=== PATIENT | male | born 1935 | race Caucasian/White ===

== ENCOUNTER 2020-12-19 18:22 | Inpatient (IN) ==
--- NOTE | 2020-12-19 18:20 | Emergency Department Note ---
Impression & Plan Sepsis, Stroke ED Provider Note NAME: YUE KAY AGE: 85 SEX: M : 1935 ARRIVES VIA: Ambulance INFORMANT: Patient, ED PROVIDER(S): Deshawn Holbrook MD Chief Complaint: Strokelike symptom HPI: Patient does present with concern for strokelike symptoms. The patient had gone to use the restroom around noon time at which point he had fell off the edge of the toilet seat and into the bathtub. He was not found until approximately 5:30 PM by the grandson at which point EMS was called. Upon EMS arrival the patient stated he thinks that he had had a stroke. The patient does take full dose aspirin. The patient was having some left-sided weakness. Patient also had right gaze palsy. BSG was in the 150s. The patient does not take any other blood thinning medications with the exception of the anti platelets. Patient denies fevers or chills but states he does feel cold as he is currently without a shirt in the department. Patient is able to state his name and date of . Patient does have some mild discomfort in left upper extremity. The patient denies any abdominal pain nausea or vomiting. ROS: See HPI for pertinent positives and negatives. A total of 10 systems were reviewed and otherwise negative. Past medical history: See below Surgical history: See below Social history: See below Physical Exam: GENERAL: Wearing a mask, nasal cannula in place. NAD, non-toxic. EYE EXAM: Normal conjunctiva. PERRL, no anisocoria and EOM's grossly intact w/o pain. OROPHARYNX: Dry mucous membranes. Edentulous. NECK: Supple, no nuchal rigidity, no adenopathy, non-tender. No signs of meni ngismus. LUNGS: Clear to auscultation. Normal chest wall mechanics. HEART: Tachycardic and regular, no MRG. ABDOMEN: Abdomen soft, non-tender, normo-active bowel sounds, no masses, no rebound or guarding. BACK: No CVA TTP. SKIN: No rashes and no bruising. UPPER EXTREMITIES: Ability to move left upper extremity, mild redness over the forearm. LOWER EXTREMITIES: Grossly normal, no edema. NEURO EXAM: A&O x3, cranial nerves II-XII grossly intact with exception of preferential right gaze, normal speech, inability to move the left upper extremity, able to move bilateral lower extremities but not able to discriminate between left and right when touching the left he states that it is "your right l eg" and when touching the right leg he states that his left. Differential diagnoses: Infection, dehydration, metabolic abnormality, hypo/hyperglycemia, electrolyte disturbance, anemia, hypoxia, cardiac sources, intracerebral event, toxicologic, neurologic, as well as other pathologies. Course: Patient was seen and evaluated the bedside. Full history physical exam was performed. EKG: Indication: Strokelike symptoms Tachycardic and regular, rate of 129, wide QRS, prolonged QTC, right axis d eviation. Patient's rate is increased but the patient's general morphology appears to be unchanged. The patient did have right axis deviation with a wide QRS seen on EKG July 20, 2016. Imaging Studies: Radiology results as stated below per my review in the radiologist's interpretation: CT OF THE HEAD WITHOUT CONTRAST CLINICAL HISTORY: Stroke Like Symptoms COMPARISON STUDY: No previous studies for comparison. TECHNIQUE: Helical axial images of the head were obtained without IV contrast. Automated exposure control was utilized for the study. A dose lowering technique was utilized adhering to the principles of ALARA. FINDINGS: This exam is mildly compromised by motion artifact. 1No acute intracranial hemorrhage, midline shift or mass effect is present. The ventricular system is unremarkable. White matter hypodensity suggests small vessel disease. The basal cisterns are patent. No extra-axial collections are present. There are no findings to suggest acute dural sinus thrombosis or acute territorial infarct. No significant calvarial abnormalities are present. Visualized portions of the sinuses and mastoid air cells are clear. IMPRESSION: No acute intracranial findings. ACT 112: Negative or not required by law. Electronically signed by: Trung Castro M.D. 12/19/2020 6:37 PM Dictated: 12/19/20 183 Transcribed: 12/19/20 183 CTA ANGIOGRAPHY OF THE HEAD CLINICAL HISTORY: Stroke Like Symptoms COMPARISON STUDY: No previous studies for comparison. TECHNIQUE: Helical axial images of the head were obtained following uneventful intravenous administration of 118 cc of Optiray 320. Sagittal and coronal reconstructions were viewed as well as maximal intensity projections on an independent 3-D workstation. Automated exposure control was utilized for the study. A dose lowering technique was utilized adhering to the principles of ALARA. CT DOSE: 1424.68 mGy.cm FINDINGS: Please note that the head CT will be reported separately. No acute in tracranial hemorrhage, midline shift or mass effect is present. Ventricular system is unremarkable. Basal cisterns are patent. There are no extra-axial collections. White matter hypodensities favor small vessel disease. There is moderate plaque within the bilateral cavernous carotids without significant stenosis. No central vessel occlusion is noted. The posterior circulation is intact. There is no intracranial aneurysm. IMPRESSION: Exam mildly compromised by motion artifact. No central vessel occlusion. No intracranial aneurysm. ACT 112: Negative or not required by law. Electronically signed by: Trung Castro M.D. 12/19/2020 6:45 PM Dictated: 12/19/201841 Transcribed: 12/19/201841 CT ANGIOGRAPHY OF THE NECK WITH CONTRAST CLINICAL HISTORY: Stroke Like Symptoms COMPARISON STUDY: No previous studies for comparison. Technique: CT angiography of the carotid and vertebral arteries was obtained using Optiray 320 IV and 3D reconstruction on an independent workstation. NASCET criteria was utilized. Automated exposure control was utilized for the study. A dose lowering technique was utilized adhering to the principles of ALARA. Findings: Moderate emphysema is noted within visualized portions of the upper lungs. There is no cervical lymphadenopathy. No cervical spine fracture is noted. This exam is moderately compromised by motion artifact. The carotid bifurcations are suboptimally assessed due to artifact. There is moderate calcified plaque within the proximal bilateral internal carotid arteries without definite stenosis. There is no dissection within the major vessels within the neck although sensitivity is diminished on this exam given motion artifact. The right vertebral artery is patent. There is suspected severe stenosis of the proximal right vertebral artery, suboptimally assessed on this exam. IMPRESSION: 1. Exam moderately compromised by motion artifact. Atherosclerotic plaque within the proximal bilateral internal carotid arteries without definite stenosis. 2. Suspected severe stenosis of the proximal left vertebral artery, suboptimally assessed on this exam. ACT 112: Negative or not required by law. Electronically signed by: Trung Castro M.D. 12/19/2020 6:42 PM Dictated: 12/19/201836 Transcribed: 12/19/201836 Cardiac monitoring: An order was placed for continuous cardiac monitoring. The monitor shows a rate of 120 with sinus tachycardia rhythm. MDM: Patient was seen and evaluated the bedside upon returning from CAT scan. I did initiate a phone call to [facility] telestroke. A code stroke had been paged out prior to his arrival in anticipation of his strokelike symptoms. Blood work was obtained along with CT head and CT angiography of the head neck. Given the patient's white count of 20 with an elevated heart rate the patient was ordered Zosyn and vancomycin in addition IV fluids. Covid swab also obtained. CT head CT angiography of the head and neck only showed vertebral artery stenosis. I did speak with Dr. Osman who evaluated the patient. There was concern about the possibility of an M2 branch occlusion per Dr. Osman. I did speak with Dr. Paz at [facility] in [place] he stated given the lack of any obvious area of pathology on the CT angiogram they would not intervene at this time. The patient was informed of this. The patient initial lactate was 5.8. Patient did receive 2 L IV fluid with along with broad- spectrum antibiotics. Covid is negative. Patient's urinalysis does not show evidence of obvious infection. No bacteria whites or nitrites. The patient had no abdominal pain on exam. MRSA negative. Patient's chest x-ray was clear. I did speak with the on-call hospitalist Dr. Natalio Mracum and the patient was admitted to [facility] medicine service. Critical Care: I have personally spent 52 minutes of critical care time in direct management of this patient. This includes bedside care, interpretation of diagnostic studies, and testing, discussion with consultants, patient, and family members, and other require inpatient management activities. This 52 minutes is in excess of all separately billable procedures. Past Med/Surg History Medical History CAD (coronary artery disease) CKD (chronic kidney disease) stage 3, GFR 30-59 ml/min Dyslipidemia HTN (hypertension) Surgical History H/O heart artery stent History of inguinal hernia repair History of tonsillectomy and adenoidectomy Social History Smoking Status: Former smoker Hx Alcohol Use: No Hx Substance Use: No Preferred Language: Swiss Paper Pattern Inspector Required: No Beliefs That Will Affect Care: None Current Living Situation: Alone Other Information That Helps Us Care for You: No Feels Safe at Home: Yes Safety Concerns: Feels Safe At This Time Assistive Devices: Glasses and Hearing Aid - Right Allergies Allergies Allergy/AdvReac Type Severity Reaction Status Date / Time No Known Allergies Allergy Unverified 12/19/20 19:47 Home Meds Home Medications Medication Instructions Recorded Confirmed aspirin 325 mg PO DAILY 12/19/20 12/19/20 buspirone [BuSpar] 10 mg PO BID PRN 12/19/20 12/19/20 cinnamon bark [Cinnamon] 500 mg PO MOWEFR 12/19/20 12/19/20 lisinopril [Zestril] 2.5 mg PO DAILY 12/19/20 12/19/20 metoprolol succinate [Toprol XL] 50 mg PO DAILY 12/19/20 12/19/20 ancnekffeqry-[id number] 1 tab PO DAILY 12/19/20 12/19/20 [Centrum Silver] nitroglycerin [Nitrostat] 0.4 mg SUBLINGUAL UD PRN 12/19/20 12/19/20 simvastatin 20 mg PO HS 12/19/20 12/19/20 vitamin E 0 unit PO BID 12/19/20 12/19/20 Results & Data (ED) Vital Signs Vital Signs - 24 hr 12/19/20 18:18 12/19/20 18:36 12/19/20 18:38 Temperature 37.0 C Temperature Source Oral Pulse Rate 126 H 128 H 128 H Pulse Rate from SpO2 Sensor 129 H 128 H Pulse Strength Normal Respiratory Rate 20 23 25 H Respiratory Effort / Characteristics Non-Labored Spontaneous Respiratory Depth Normal Blood Pressure 147/84 H 147/84 H Blood Pressure Mean 105 105 Pulse Oximetry 97 95 96 Oxygen Delivery Method Room Air Oxygen Flow Rate Sepsis Recent Fever Within 48 Hours No Sepsis New/Unexplained Change in Mental Status N/A Sepsis Action Taken by Nursing No Action Required Oxygen Flow Rate - Titration Pulse Oximetry Post Tiitration 12/19/20 18:43 12/19/20 18:45 12/19/20 18:53 Temperature Temperature Source Pulse Rate 127 H 126 H Pulse Rate from SpO2 Sensor 127 H 126 H Pulse Strength Respiratory Rate 23 17 Respiratory Effort / Characteristics Respiratory Depth Blood Pressure 170/85 H Blood Pressure Mean 113 Pulse Oximetry 96 96 97 Oxygen Delivery Method Room Air Oxygen Flow Rate 2 Sepsis Recent Fever Within 48 Hours Sepsis New/Unexplained Change in Mental Status Sepsis Action Taken by Nursing Oxygen Flow Rate - Titration 0 Pulse Oximetry Post Tiitration 95 12/19/20 19:00 12/19/20 19:01 12/19/20 19:05 Temperature Temperature Source Pulse Rate 130 H 129 H 128 H Pulse Rate from SpO2 Sensor 129 H 129 H 128 H Pulse Strength Respiratory Rate 27 H 24 24 Respiratory Effort / Characteristics Respiratory Depth Blood Pressure 155/85 H 150/88 H Blood Pressure Mean 108 108 Pulse Oximetry 95 94 94 Oxygen Delivery Method Room Air Oxygen Flow Rate Sepsis Recent Fever Within 48 Hours Sepsis New/Unexplained Change in Mental Status Sepsis Action Taken by Nursing Oxygen Flow Rate - Titration Pulse Oximetry Post Tiitration 12/19/20 19:10 12/19/20 19:15 12/19/20 19:17 Temperature Temperature Source Pulse Rate 129 H 128 H 129 H Pulse Rate from SpO2 Sensor 129 H 127 H 129 H Pulse Strength Respiratory Rate 21 21 23 Respiratory Effort / Characteristics Respiratory Depth Blood Pressure 158/86 H 137/91 142/90 H Blood Pressure Mean 110 106 107 Pulse Oximetry 94 94 93 Oxygen Delivery Method Room Air Room Air Room Air Oxygen Flow Rate Sepsis Recent Fever Within 48 Hours Sepsis New/Unexplained Change in Mental Status Sepsis Action Taken by Nursing Oxygen Flow Rate - Titration Pulse Oximetry Post Tiitration 12/19/20 19:20 12/19/20 19:25 12/19/20 20:05 Temperature Temperature Source Pulse Rate 128 H 130 H 129 H Pulse Rate from SpO2 Sensor 128 H 130 H Pulse Strength Respiratory Rate 18 23 23 Respiratory Effort / Characteristics Respiratory Depth Blood Pressure 169/135 H 150/90 H 142/97 H Blood Pressure Mean 146 110 112 Pulse Oximetry 94 96 98 Oxygen Delivery Method Room Air Room Air Room Air Oxygen Flow Rate Sepsis Recent Fever Within 48 Hours Sepsis New/Unexplained Change in Mental Status Sepsis Action Taken by Nursing Oxygen Flow Rate - Titration Pulse Oximetry Post Tiitration 12/19/20 20:10 12/19/20 20:15 12/19/20 20:21 Temperature Temperature Source Pulse Rate 128 H 126 H 124 H Pulse Rate from SpO2 Sensor Pulse Strength Respiratory Rate 22 19 22 Respiratory Effort / Characteristics Respiratory Depth Blood Pressure 149/81 H 131/62 160/89 H Blood Pressure Mean 103 85 112 Pulse Oximetry 98 98 98 Oxygen Delivery Method Room Air Room Air Room Air Oxygen Flow Rate Sepsis Recent Fever Within 48 Hours Sepsis New/Unexplained Change in Mental Status Sepsis Action Taken by Nursing Oxygen Flow Rate - Titration Pulse Oximetry Post Tiitration Home Medications Current Medication List: was personally reviewed by me Laboratory Data Attestation: I reviewed the patient's lab results. Result diagrams: 12/19/20 18:32 12/19/20 18:32 Lab Results 12/19/20 12/19/20 12/19/20 Range/Units 18:32 18:32 18:32 WBC 20.66 H (4.8-10.8) K/uL RBC 4.04 L (4.7-6.1) M/uL Hgb 13.1 L (14.0-18.0) g/dL Hct 37.3 L (42-52) % MCV 92.3 (80-100) fL MCH 32.4 (25-34) pg MCHC 35.1 (32-36) g/dL RDW Std Deviation 46.7 H (36.4-46.3) fL RDW Coeff of Ana 13.8 (11.5-14.5) % Plt Count 249 (130-400) K/uL MPV 10.2 (7.4-10.4) fL Immature Gran % (Auto) 0.1 % Neut % (Auto) 86.1 % Lymph % (Auto) 10.8 % [place] % (Auto) 3.0 % Eos % (Auto) 0.0 % Baso % (Auto) 0.0 % Neut # (Auto) 17.78 H (1.4-6.5) K/uL Lymph # (Auto) 2.23 (1.2-3.4) K/uL [place] # (Auto) 0.62 H (0.11-0.59) K/uL Eos # (Auto) 0.00 (0-0.5) K/uL Baso # (Auto) 0.01 (0-0.2) K/uL Immature Gran # (Auto) 0.02 (0.00-0.02) K/uL PT 11.5 (9.0-12.0) Seconds INR 1.1 (0.9-1.1) APTT 23.2 (21.0-31.0) Seconds PTT Ratio 0.9 Sodium 138 (136-145) mmol/L Potassium 4.9 (3.5-5.1) mmol/L Chloride 107 (98-107) mmol/L Carbon Dioxide 18 L (21-32) mmol/L Anion Gap 14.0 H (3-11) BUN 29 H (7-18) mg/dl Creatinine 1.93 H (0.6-1.4) mg/dl Est Cr Clr Drug Dosing Not Reportable Est GFR ( Amer) 35.5 Est GFR (Non-Af Amer) 30.6 BUN/Creatinine Ratio 14.9 (10-20) Glucose 165 H (70-99) mg/dl POC Glucose (70-99) mg/dl Lactate (0.4-2.0) mmol/L Calcium 9.4 (8.5-10.1) mg/dl Magnesium 2.0 (1.8-2.4) mg/dl Total Bilirubin 0.4 (0.2-1) mg/dl AST 161 H (15-37) U/L ALT 48 (12-78) U/L Alkaline Phosphatase 82 (45-117) U/L Troponin I 0.253 H* (0-0.045) ng/ml Total Protein 6.6 (6.4-8.2) gm/dl Albumin 3.5 (3.4-5.0) gm/dl Globulin 3.1 (2.5-4.0) gm/dl Albumin/Globulin Ratio 1.1 (0.9-2) Urine Color Urine Appearance (Clear) Urine pH (4.5-7.5) Ur Specific [place] (1.000-1.030) Urine Protein (Negative) Urine Glucose (UA) (Negative) Urine Ketones (Negative) Urine Blood (Negative) Urine Nitrite (Negative) Urine Bilirubin (Negative) Urine Urobilinogen (Negative) Ur Leukocyte Esterase (Negative) Urine WBC (Auto) (0-5) /hpf Urine RBC (Auto) (0-4) /hpf U Hyaline Cast (Auto) (0-5) /lpf U Epithel Cells (Auto) (0-5) /lpf Urine Bacteria (Auto) (Negative) Amorphous Sediment (None Prsent) Urine Mucus (None Prsent) Nasal Screen MRSA (PCR) (Negative) COVID-19 Eval Order SARS-CoV-2, RNA, NAAT (NEGATIVE) 12/19/20 12/19/20 12/19/20 Range/Units 18:34 19:46 20:25 WBC (4.8-10.8) K/uL RBC (4.7-6.1) M/uL Hgb (14.0-18.0) g/dL Hct (42-52) % MCV (80-100) fL MCH (25-34) pg MCHC (32-36) g/dL RDW Std Deviation (36.4-46.3) fL RDW Coeff of Ana (11.5-14.5) % Plt Count (130-400) K/uL MPV (7.4-10.4) fL Immature Gran % (Auto) % Neut % (Auto) % Lymph % (Auto) % [place] % (Auto) % Eos % (Auto) % Baso % (Auto) % Neut # (Auto) (1.4-6.5) K/uL Lymph # (Auto) (1.2-3.4) K/uL [place] # (Auto) (0.11-0.59) K/uL Eos # (Auto) (0-0.5) K/uL Baso # (Auto) (0-0.2) K/uL Immature Gran # (Auto) (0.00-0.02) K/uL PT (9.0-12.0) Seconds INR (0.9-1.1) APTT (21.0-31.0) Seconds PTT Ratio Sodium (136-145) mmol/L Potassium (3.5-5.1) mmol/L Chloride (98-107) mmol/L Carbon Dioxide (21-32) mmol/L Anion Gap (3-11) BUN (7-18) mg/dl Creatinine (0.6-1.4) mg/dl Est Cr Clr Drug Dosing Est GFR ( Amer) Est GFR (Non-Af Amer) BUN/Creatinine Ratio (10-20) Glucose (70-99) mg/dl POC Glucose 167 H (70-99) mg/dl Lactate 5.8 H* (0.4-2.0) mmol/L Calcium (8.5-10.1) mg/dl Magnesium (1.8-2.4) mg/dl Total Bilirubin (0.2-1) mg/dl AST (15-37) U/L ALT (12-78) U/L Alkaline Phosphatase (45-117) U/L Troponin I (0-0.045) ng/ml Total Protein (6.4-8.2) gm/dl Albumin (3.4-5.0) gm/dl Globulin (2.5-4.0) gm/dl Albumin/Globulin Ratio (0.9-2) Urine Color Urine Appearance (Clear) Urine pH (4.5-7.5) Ur Specific [place] (1.000-1.030) Urine Protein (Negative) Urine Glucose (UA) (Negative) Urine Ketones (Negative) Urine Blood (Negative) Urine Nitrite (Negative) Urine Bilirubin (Negative) Urine Urobilinogen (Negative) Ur Leukocyte Esterase (Negative) Urine WBC (Auto) (0-5) /hpf Urine RBC (Auto) (0-4) /hpf U Hyaline Cast (Auto) (0-5) /lpf U Epithel Cells (Auto) (0-5) /lpf Urine Bacteria (Auto) (Negative) Amorphous Sediment (None Prsent) Urine Mucus (None Prsent) Nasal Screen MRSA (PCR) Negative (Negative) COVID-19 Eval Order SARS-CoV-2, RNA, NAAT (NEGATIVE) 12/19/20 12/19/20 12/19/20 Range/Units 20:25 20:25 20:25 WBC (4.8-10.8) K/uL RBC (4.7-6.1) M/uL Hgb (14.0-18.0) g/dL Hct (42-52) % MCV (80-100) fL MCH (25-34) pg MCHC (32-36) g/dL RDW Std Deviation (36.4-46.3) fL RDW Coeff of Ana (11.5-14.5) % Plt Count (130-400) K/uL MPV (7.4-10.4) fL Immature Gran % (Auto) % Neut % (Auto) % Lymph % (Auto) % [place] % (Auto) % Eos % (Auto) % Baso % (Auto) % Neut # (Auto) (1.4-6.5) K/uL Lymph # (Auto) (1.2-3.4) K/uL [place] # (Auto) (0.11-0.59) K/uL Eos # (Auto) (0-0.5) K/uL Baso # (Auto) (0-0.2) K/uL Immature Gran # (Auto) (0.00-0.02) K/uL PT (9.0-12.0) Seconds INR (0.9-1.1) APTT (21.0-31.0) Seconds PTT Ratio Sodium (136-145) mmol/L Potassium (3.5-5.1) mmol/L Chloride (98-107) mmol/L Carbon Dioxide (21-32) mmol/L Anion Gap (3-11) BUN (7-18) mg/dl Creatinine (0.6-1.4) mg/dl Est Cr Clr Drug Dosing Est GFR ( Amer) Est GFR (Non-Af Amer) BUN/Creatinine Ratio (10-20) Glucose (70-99) mg/dl POC Glucose (70-99) mg/dl Lactate (0.4-2.0) mmol/L Calcium (8.5-10.1) mg/dl Magnesium (1.8-2.4) mg/dl Total Bilirubin (0.2-1) mg/dl AST (15-37) U/L ALT (12-78) U/L Alkaline Phosphatase (45-117) U/L Troponin I (0-0.045) ng/ml Total Protein (6.4-8.2) gm/dl Albumin (3.4-5.0) gm/dl Globulin (2.5-4.0) gm/dl Albumin/Globulin Ratio (0.9-2) Urine Color Yellow Urine Appearance Clear (Clear) Urine pH 5.0 (4.5-7.5) Ur Specific [place] > 1.045 H (1.000-1.030) Urine Protein 2+ H (Negative) Urine Glucose (UA) Negative (Negative) Urine Ketones Trace H (Negative) Urine Blood 3+ H (Negative) Urine Nitrite Negative (Negative) Urine Bilirubin Negative (Negative) Urine Urobilinogen Negative (Negative) Ur Leukocyte Esterase Trace H (Negative) Urine WBC (Auto) 1-5 (0-5) /hpf Urine RBC (Auto) 10-30 H (0-4) /hpf U Hyaline Cast (Auto) 10-30 H (0-5) /lpf U Epithel Cells (Auto) 10-20 H (0-5) /lpf Urine Bacteria (Auto) Negative (Negative) Amorphous Sediment Present A (None Prsent) Urine Mucus Present A (None Prsent) Nasal Screen MRSA (PCR) (Negative) COVID-19 Eval Order Covid19 IDNow atMDEC SARS-CoV-2, RNA, NAAT NEGATIVE (NEGATIVE) Administered Medications Discontinued Medications Acetaminophen (Acetaminophen 1000 Mg/100 Ml Iv) Confirm Administered Dose 1,000 mg IV .STK-MED ONE Stop: 12/19/20 20:14 Last Admin: 12/19/20 20:22 Dose: 1,000 mg Documented by: [id number] Piperacillin Sod/Tazobactam Sod (Zosyn) 4.5 gm in 120 mls @ 240 mls/hr IV NOW ONE Stop: 12/19/20 19:48 Last Infusion: 12/19/20 20:36 Dose: 0 mls/hr Documented by: [id number] Admin: 12/19/20 20:09 Dose: 240 mls/hr Documented by: [id number] Sodium Chloride (Nss 1000ml) 1,000 mls @ 999 mls/hr IV .Q1H1M ONE Stop: 12/19/20 20:19 Last Admin: 12/19/20 20:09 Dose: 999 mls/hr Documented by: [id number] Vancomycin HCl 2,250 mg/ (Sodium Chloride) 545 mls @ 200 mls/hr IV NOW ONE Stop: 12/19/20 22:07 Last Admin: 12/19/20 20:09 Dose: 200 mls/hr Documented by: [id number] Magnesium Sulfate/Dextrose (Magnesium Sulfate / D5w) 1 gm in 100 mls @ 100 mls/hr IV NOW STA Stop: 12/19/20 20:25 Last Admin: 12/19/20 20:22 Dose: 100 mls/hr Documented by: [id number] Sodium Chloride (Nss 1000ml) 1,000 mls @ 999 mls/hr IV .Q1H1M ONE Stop: 12/19/20 20:43 Last Admin: 12/19/20 20:36 Dose: 999 mls/hr Documented by: [id number] Acetaminophen (Ofirmev) 1,000 mg in 100 mls @ 400 mls/hr IV NOW STA Stop: 12/19/20 22:10 Last Admin: 12/19/20 22:29 Dose: Not Given Documented by: [id number] Ioversol (Optiray 320 125ml) 118 ml IV ONCE ONE Stop: 12/19/20 18:22 Last Admin: 12/19/20 18:22 Dose: 118 ml Documented by: [id number] Discharge Plan Visit Data Chief Complaint: Stroke Alert Stated Complaint: STROKE ALERT ED Provider: Deshawn Holbrook Discharge Problem: Sepsis, Stroke Discharge Problem: Sepsis Qualifiers: Sepsis type: sepsis due to unspecified organism Sepsis acute organ dysfunction status: with acute organ dysfunction Severe sepsis acute organ dysfunction type: unspecified Severe sepsis shock status: without septic shock Qualified Code(s): A41.9 - Sepsis, unspecified organism Stroke Qualifiers: CVA mechanism: unspecified Qualified Code(s): I63.9 - Cerebral infarction, unspecified
[~2020-12-19 18:22] MED LIST: OPTIRAY 320 125ml IV ONE
--- NOTE | 2020-12-19 18:38 | CT Scan Report ---
CT OF THE HEAD WITHOUT CONTRAST CLINICAL HISTORY: Stroke Like Symptoms COMPARISON STUDY: No previous studies for comparison. TECHNIQUE: Helical axial images of the head were obtained without IV contrast. Automated exposure con trol was utilized for the study. A dose lowering technique was utilized adhering to the principles o f ALARA. FINDINGS: This exam is mildly compromised by motion artifact. 1No acute intracranial hemorrhage, midl ine shift or mass effect is present. The ventricular system is unremarkable. White matter hypodensity suggests small vessel disease. The basal cisterns are patent. No extra-axial collections are present . There are no findings to suggest acute dural sinus thrombosis or acute territorial infarct. No sign ificant calvarial abnormalities are present. Visualized portions of the sinuses and mastoid air cells are clear. IMPRESSION: No acute intracranial findings. ACT 112: Negative or not required by law. Electronically signed by: Trung Castro M.D. 12/19/2020 6:37 PM
--- NOTE | 2020-12-19 18:44 | CT Scan Report ---
CT ANGIOGRAPHY OF THE NECK WITH CONTRAST CLINICAL HISTORY: Stroke Like Symptoms COMPARISON STUDY: No previous studies for comparison. Technique: CT angiography of the carotid and vertebral arteries was obtained using Exoprise 320 IV and 3D reconstruction on an independent workstation. NASCET criteria was utilized. Automated exposure c ontrol was utilized for the study. A dose lowering technique was utilized adhering to the principles of ALARA. Findings: Moderate emphysema is noted within visualized portions of the upper lungs. There is no cerv ical lymphadenopathy. No cervical spine fracture is noted. This exam is moderately compromised by mot ion artifact. The carotid bifurcations are suboptimally assessed due to artifact. There is moderate c alcified plaque within the proximal bilateral internal carotid arteries without definite stenosis. Th ere is no dissection within the major vessels within the neck although sensitivity is diminished on t his exam given motion artifact. The right vertebral artery is patent. There is suspected severe steno sis of the proximal right vertebral artery, suboptimally assessed on this exam. IMPRESSION: 1. Exam moderately compromised by motion artifact. Atherosclerotic plaque within the proximal bilater al internal carotid arteries without definite stenosis. 2. Suspected severe stenosis of the proximal left vertebral artery, suboptimally assessed on this exa m. ACT 112: Negative or not required by law. Electronically signed by: Trung Castro M.D. 12/19/2020 6:42 PM
[2020-12-19 18:45] LABS: Hematocrit (blood only) 37.3 % (42-52); Hemoglobin 13.1 g/dL (14.0-18.0); Mean Corpuscular Hemoglobin 32.4 pg (25-34); Mean Corpuscular Hgb Conc 35.1 g/dL (32-36); Mean Corpuscular Volume 92.3 fL (80-100); Mean Platelet Volume 10.2 fL (7.4-10.4); Platelet Count 249 K/uL (130-400); RDW Coefficient of Variation 13.8 % (11.5-14.5); RDW Standard Deviation 46.7 fL (36.4-46.3); Red Blood Count 4.04 M/uL (4.7-6.1); White Blood Count 20.66 K/uL (4.8-10.8)
--- NOTE | 2020-12-19 18:47 | CT Scan Report ---
CTA ANGIOGRAPHY OF THE HEAD CLINICAL HISTORY: Stroke Like Symptoms COMPARISON STUDY: No previous studies for comparison. TECHNIQUE: Helical axial images of the head were obtained following uneventful intravenous administr ation of 118 cc of Optiray 320. Sagittal and coronal reconstructions were viewed as well as maximal i ntensity projections on an independent 3-D workstation. Automated exposure control was utilized for the study. A dose lowering technique was utilized adhering to the principles of ALARA. CT DOSE: 1424.68 mGy.cm FINDINGS: Please note that the head CT will be reported separately. No acute intracranial hemorrhage, midline shift or mass effect is present. Ventricular system is unremarkable. Basal cisterns are woodall nt. There are no extra-axial collections. White matter hypodensities favor small vessel disease. Ther e is moderate plaque within the bilateral cavernous carotids without significant stenosis. No central vessel occlusion is noted. The posterior circulation is intact. There is no intracranial aneurysm. IMPRESSION: Exam mildly compromised by motion artifact. No central vessel occlusion. No intracranial aneurysm. ACT 112: Negative or not required by law. Electronically signed by: Trung Castro M.D. 12/19/2020 6:45 PM
[2020-12-19 18:55] LABS: INR 1.1 (0.9-1.1); Partial Thromboplastin Ratio 0.9; Partial Thromboplastin Time 23.2 Seconds (21.0-31.0); Prothrombin Time 11.5 Seconds (9.0-12.0)
[2020-12-19 19:02] LABS: Alanine Aminotransferase 48 U/L (12-78); Albumin Level 3.5 gm/dl (3.4-5.0); Aspartate Aminotransferase 161 U/L (15-37); BUN Creatinine Ratio 14.9 (10-20); Blood Urea Nitrogen 29 mg/dl (7-18); Calcium 9.4 mg/dl (8.5-10.1); Carbon Dioxide 18 mmol/L (21-32); Chloride 107 mmol/L (98-107); Est GFR (African American) 35.5; Est GFR (Non-African American) 30.6; Glucose 165 mg/dl (70-99); Potassium 4.9 mmol/L (3.5-5.1); Sodium 138 mmol/L (136-145)
[2020-12-19 19:08] LABS: Basophils # (auto) 0.01 K/uL (0-0.2); Immature Granulocytes # (auto) 0.02 K/uL (0.00-0.02); Immature Granulocytes % (auto) 0.1 %; Lymphocytes # (auto) 2.23 K/uL (1.2-3.4); Lymphocytes % (auto) 10.8 %; Monocytes # (auto) 0.62 K/uL (0.11-0.59); Neutrophils # (auto) 17.78 K/uL (1.4-6.5); Neutrophils % (auto) 86.1 %
[2020-12-19 19:10] LABS: Albumin Globulin Ratio 1.1 (0.9-2); Alkaline Phosphatase 82 U/L (45-117); Bilirubin,Total 0.4 mg/dl (0.2-1); Globulin 3.1 gm/dl (2.5-4.0); Total Protein 6.6 gm/dl (6.4-8.2); Troponin I 0.253 ng/ml (0-0.045)
[2020-12-19] MEDS ORDERED: SODIUM CHLORIDE 0.9% 1000ML 1,000 ML IV ONE ×2 (19:19→19:43)
[2020-12-19] MEDS ORDERED: PIPERACILL/TAZOBAC CONSULT ACTIVE PRN (19:19)
[2020-12-19] MEDS ORDERED: PIPERACILLIN/TAZOBACTAM 4.5 GM/120 ML BAG IV ONE (19:19)
[2020-12-19] MEDS ORDERED: VANCOMYCIN CONSULT ACTIVE PRN (19:24)
[2020-12-19] MEDS ORDERED: VANCOMYCIN HCL 2,250 MG in SODIUM CHLORIDE 0.9% 500 ML IV ONE (19:24)
[2020-12-19] MEDS ORDERED: MAGNESIUM SULFATE / D5W 1 GM/100 ML BAG IV STA (19:26)
--- NOTE | 2020-12-19 19:53 | XRay Report ---
XR chest 1V portable CLINICAL HISTORY: CVA work up COMPARISON STUDY: Chest radiograph July 17, 2016. FINDINGS: Lung volumes are normal. Lungs are clear. There is no pneumothorax or pleural effusion. Car diac size is stable. Mediastinal contours are normal. There is no evidence for pulmonary edema. IMPRESSION: No acute cardiopulmonary findings. ACT 112: Negative or not required by law. Electronically signed by: Trung Castro M.D. 12/19/2020 7:52 PM
[2020-12-19] MEDS ORDERED: ACETAMINOPHEN 1000 MG/100 ML IV IV ONE (20:13)
[2020-12-19 20:46] LABS: Appearance Urine Clear (Clear); Bacteria Urine Automated Negative (Negative); Bilirubin Urine Negative (Negative); Blood Urine 3+ (Negative); Color Urine Yellow; Glucose Urine UA Negative (Negative); Ketones Urine Trace (Negative); Leukocyte Esterase Urine Trace (Negative); Nitrite Urine Negative (Negative); Protein Urine 2+ (Negative); Specific Gravity Urine > 1.045 (1.000-1.030); Urobilinogen Urine Negative (Negative)
[2020-12-19 21:01] LABS: Amorphous Sediment Urine Present (None Prsent)
[2020-12-19 21:02] LABS: Mucus Urine Present (None Prsent)
[2020-12-19] MEDS ORDERED: ACETAMINOPHEN 1,000 MG/100 ML VIAL IV STA (21:56)
[2020-12-19] MEDS ORDERED: NITROGLYCERIN SL 0.4 MG/TAB TAB SL PRN (23:06)
[2020-12-19] MEDS ORDERED: busPIRone 5 MG TAB PO PRN (23:06)
[2020-12-19] MEDS ORDERED: ONDANSETRON INJ 2 MG/ML 2 ML VIAL IV PRN (23:06)
[2020-12-19] MEDS ORDERED: METOPROLOL TARTRATE 1 MG/ML VIAL IV PRN (23:06)
[2020-12-19] MEDS ORDERED: PHARMACIST DISCHARGE MED REC CONSULT PRN (23:06)
[2020-12-20] MEDS: SODIUM CHLORIDE 0.9% 1000ML 1,000 ML IV SCH ×2 (00:21→08:14)
[2020-12-20] MEDS: PATIENT'S HEIGHT AND/OR WEIGHT NEEDED SCH ×2 (00:21→00:41)
[2020-12-20] MEDS: DOXYCYCLINE HYCLATE 100 MG CAP PO SCH ×3 (00:41→20:01)
[2020-12-20] MEDS: ACETAMINOPHEN 325 MG TAB PO PRN ×2 (00:45→16:04)
--- NOTE | 2020-12-20 00:51 | History and Physical Report ---
DATE OF ADMISSION: 12/19/2020 CHIEF COMPLAINT: Stroke-like episode. HISTORY OF PRESENT ILLNESS: This is an 85-year-old male with past medical history significant for hyperlipidemia, gout, prediabetes, history of CT, history of vasomotor rhinitis, history of second-degree AV block, CAD, macular degeneration of the left eye, asymptomatic bilateral carotid artery disease, vitamin D deficiency, GERD, stage III chronic kidney disease, generalized osteoarthritis, hearing loss, elevated LFTs. Lives alone. The patient says he takes care of himself. He cooks food and cleans his house and drives car and the son and daughter help him. Today, he had gone to the restroom around noontime at which time he fell off the edge of the toilet seat into the bathtub as per the ER and he was found approximately around 5:30 p.m. by the grandson, at which point EMS was called and the patient could not move his left upper extremity. He was thought to have a stroke and was given a full dose of aspirin. The patient has some right gaze preference and some disorientation of the right and left. Currently patient is alert and oriented, hard of hearing, but able to give his history. He complains of some headache about 3/10 in severity and also bilateral lower ribcage pain. He says his vision is okay. Denies any sore throat. Denies any cough. No shortness of breath. No dysphagia. No facial droop. No chest pain, no shortness of breath, no nausea, no vomiting, no abdominal pain. Denies any diarrhea, or constipation. He says his bladder movements are okay. No rash. He says he ambulates okay without any support. He says he is active. ALLERGIES: No known drug allergies. PAST MEDICAL HISTORY: As mentioned above. PAST SURGICAL HISTORY: Colonoscopy with biopsies, coronary artery dilatation and balloon of the right coronary artery in 2002, pyloromyotomy, unilateral removal of hydrocele in 1970, cataract surgery, tonsillectomy and adenoidectomy in 1949s, repair of inguinal hernia. MEDICATIONS: The patient is on aspirin 325 mg p.o. daily, buspirone 10 mg p.o. b.i.d. p.r.n., cinnamon 500 mg p.o. on Wednesday, Wednesday and Wednesday, lisinopril 2.5 mg p.o. daily, Toprol-XL 50 mg p.o. daily, multivitamin with minerals 1 tablet p.o. daily, nitroglycerin 0.4 mg sublingual p.r.n., simvastatin 20 mg p.o. at bedtime. FAMILY HISTORY: Significant for daughter has ovarian cancer. SOCIAL HISTORY: . Former smoker, quit in 2002. Smoked 1 pack a day for 50 years. Alcohol, 3 beers per month. No drug use. REVIEW OF SYSTEMS: As per HPI. Rest of the review of symptoms negative. PHYSICAL EXAMINATION: GENERAL: The patient is old and frail, not in acute distress. VITAL SIGNS: Temperature 37, pulse 120s, respiratory rate 22, blood pressure 160/89, oxygen 98% on room air. HEENT: Some right-sided preferential gaze. Pupils equal, round, and reactive to light. Extraocular muscles intact. No facial droop. Speech is clear. Oral mucosa dry. NECK: No neck masses. No JVD. CARDIOVASCULAR: S1, S2 heard. Tachycardia. No murmurs, no gallop. RESPIRATORY SYSTEM: Normal AP diameter. No accessory muscle use. No wheezing, no crackles. ABDOMEN: Soft, bowel sounds present, nontender. No distention. CENTRAL NERVOUS SYSTEM: Alert and oriented x3. Speech is clear. No facial droop. Weakness in his left upper extremity. Some disorientation of the right and left side, but obeys simple commands. Moves all extremities except left upper extremity. EXTREMITIES: No edema. No erythema seen. Some bruises seen in the knees. LABORATORY DATA: WBC 20, hemoglobin 13.1, hematocrit 37.3, platelets 249. PT 11.5, INR 1.1, APTT 23.3. Sodium 138, potassium 4.9, chloride 107, bicarbonate 18, BUN 29, creatinine 1.93, serum glucose 165. Lactate 5.8, calcium 9.4, magnesium 2, total bilirubin 0.4, AST 161, ALT 48, alkaline phosphatase 82. Troponin I of 0.25. Urinalysis, positive for +3 blood and trace leukocyte esterase. MRSA screen negative. SARS-CoV-2 RNA negative. IMAGING DATA: Chest x-ray, no acute findings. CT of the head, no acute intracranial findings. CTA of the head and neck shows no central vessel occlusion, no intracranial aneurysms. CTA of the neck, suspected stenosis of the proximal left vertebral artery, atherosclerotic plaque within the proximal bilateral internal carotid arteries without definite stenosis. EKG: Poor data interpretation, ventricular tachycardia, right bundle branch block. ASSESSMENT AND PLAN: This is an 85-year-old male who presents with acute cerebrovascular accident. 1. Acute cerebrovascular accident: Could not move his left upper extremity, fell in the bathtub around noon time. CT of the head and CTA of the head and neck are unremarkable except for vertebral artery stenosis. ER called stroke alert and talked to [place] neurologist and also talked to [place] neurologist and no intervention was recommended at this time and was recommended for magnesium and fluids, which were given. The patient is already on aspirin at home. We will do full stroke workup with MRI scan, echocardiogram, neuro consult. Also add Plavix for now and continue home statin for now. Speech evaluation and PT/OT. We will keep him n.p.o. except meds for now until evaluated by speech. Closely monitor in tele floor. 2. Possible sepsis with elevated white count, elevated lactic acid, possible urinary tract infection. The patient also has some dry cough. Empirically started on vancomycin and Zosyn and also started on doxycycline and follow the culture. We will continue IV fluids about 125 mL per hour and follow the repeat lactic acid and follow the cultures. 3. Acute kidney injury on chronic kidney disease stage III, baseline creatinine around 1.2 to 1.3, presently with creatinine of 1.9. Getting fluids. Avoid nephrotoxic agents. We will follow the repeat labs in the a.m. 4. Mild elevation of troponin: Could be demand ischemia. We will follow repeat labs. Follow the echocardiogram. 5. History of coronary artery disease: Continue his aspirin and statin. We will be placing on IV Lopressor p.r.n. We will monitor. 6. History of hypertension: Will be holding home lisinopril and Toprol-XL for permissive hypertension. We will place him on IV Lopressor p.r.n. for systolic blood pressure greater than 190. Restart Toprol-XL as soon as possible. 7. Hyperlipidemia: Continue statin. Follow lipid profile. 8. History of prediabetes: Follow his HbA1c levels, currently n.p.o. 9. Hard of hearing. 10. History of elevated LFTs, follow the LFTs in the a.m. 11. Deep venous thrombosis prophylaxis, sequential compression devices for now. 12. Disposition, closely monitor in the tele floor. Level 1 full code. PT and OT prior to discharge. Social service to help with discharge planning. Tried to call his daughter, but unable to reach her. Talked to Son Mr. Simon ph no [phone]. Likes to be called with MRI results. PADMINI
[2020-12-20 01:32] LABS: Basophils # (auto) 0.02 K/uL (0-0.2); Basophils % (auto) 0.1 %; Hematocrit (blood only) 36.4 % (42-52); Hemoglobin 12.7 g/dL (14.0-18.0); Immature Granulocytes # (auto) 0.05 K/uL (0.00-0.02); Immature Granulocytes % (auto) 0.2 %; Lymphocytes # (auto) 2.01 K/uL (1.2-3.4); Lymphocytes % (auto) 9.9 %; Mean Corpuscular Hemoglobin 31.8 pg (25-34); Mean Corpuscular Hgb Conc 34.9 g/dL (32-36); Mean Platelet Volume 10.2 fL (7.4-10.4); Monocytes % (auto) 12.3 %; Neutrophils # (auto) 15.72 K/uL (1.4-6.5); Neutrophils % (auto) 77.5 %; Platelet Count 209 K/uL (130-400); RDW Coefficient of Variation 13.8 % (11.5-14.5); RDW Standard Deviation 45.8 fL (36.4-46.3)
[2020-12-20 01:59] LABS: Albumin Level 3.3 gm/dl (3.4-5.0); BUN Creatinine Ratio 19.7 (10-20); Calcium 8.2 mg/dl (8.5-10.1); Creatinine Clr Calc Pharmacy 39.7 ml/min; Est GFR (African American) 54.7; Est GFR (Non-African American) 47.2; Potassium 4.5 mmol/L (3.5-5.1)
[2020-12-20 02:07] LABS: Bilirubin Direct 0.2 mg/dl (0-0.2); Bilirubin,Total 0.7 mg/dl (0.2-1); Total Protein 6.4 gm/dl (6.4-8.2); Troponin I 0.375 ng/ml (0-0.045)
[2020-12-20] MEDS ORDERED: traMADol HCL 50 MG TABLET PO STA (03:14)
[2020-12-20] MEDS: PIPERACILLIN/TAZOBACTAM 3.375 GM in DEXTROSE 5% 100 ML IV SCH ×2 (03:50→11:17)
[2020-12-20] MEDS: CLOPIDOGREL BISULFATE 75 MG TAB PO SCH (08:15)
[2020-12-20] MEDS: ASPIRIN 325 MG ECTAB PO SCH (08:15)
[2020-12-20 09:08] LABS: Estimated Average Glucose 120 mg/dl; Hemoglobin A1C 5.8 % (4.5-5.6)
--- NOTE | 2020-12-20 10:45 | XRay Report ---
ORBIT RADIOGRAPHS 3 VIEWS HISTORY: pre-MRI screening. COMPARISON: None. FINDINGS: There are no radiopaque foreign bodies identified within the orbits. IMPRESSION: No radiopaque foreign bodies identified within the orbits. ACT 112: Negative or not required by law. Electronically signed by: Isma Bailey M.D. 12/20/2020 10:43 AM
[2020-12-20] MEDS: CEROVITE ADV FORMULA TAB PO SCH (11:17)
--- NOTE | 2020-12-20 12:24 | Pharmacy Report ---
Pharmacy Abx Initial Consult - Date of Service December 20, 2020 - Pharmacy Dosing Scope Date of Consult: 12/19/20 Consultation requested by: Dr. Bryan Pharmacy is consulted to initiate Vancomycin + Zosyn IV dosing therapy, order appropriate labs and adjust drug dose/frequency. - Subjective The patient is a 85 year old M admitted on 12/19/20 21:39. - Objective Height: 5 ft 7 in Weight: 77.7 kg Vital Signs (Past 12hrs): Vital Signs Temp Pulse Resp BP Pulse Ox 12/20/20 07:04 36.7 C 87 18 133/73 93 12/20/20 05:00 36.9 C 93 H 18 131/77 94 Lab Results (24hrs): Laboratory Tests (24 Hours) 12/20/20 12/20/20 12/20/20 10:50 01:23 01:23 WBC 20.30 H Neut # (Auto) 15.72 H Creatinine 1.35 D Est Cr Clr Drug Dosing 39.7 Procalcitonin 0.37 12/19/20 12/19/20 18:32 18:32 WBC 20.66 H Neut # (Auto) 17.78 H Creatinine 1.93 H Est Cr Clr Drug Dosing Not Reportable Procalcitonin Micro Results: 12/19/20 19:46 Aerobic Blood Culture - Pending Blood Anaerobic Blood Culture - Pending 12/19/20 19:46 Aerobic Blood Culture - Pending Blood Anaerobic Blood Culture - Pending - Risk Factors for Resistance * Resident in a [facility] or extended-care facility * Hospitalization for 48 hours or more within the past 90 days * Current hospitalization > 5 days * Chronic dialysis within the past 30 days * Immunocompromised (chronic steroid therapy, chemotherapy, immunomodulators) * History of infection with a multidrug-resistant organism: [organism] [site of infection] [date] * Antimicrobial use within the last 90 days [include specific drugs, if known] - Assessment & Plan Assessment 85 year old M [] Plan [] for treatment of [Indication] Vancomycin IV * Estimated PK Parameters: Vd [] L/kg, Johnny [] hr-1, t1/2 [] hr * Loading dose: [] mg ([] mg/kg) * Maintenance dose: [] mg IV ([] mg/kg) every [] hours * Goal trough level for [indication] : [] to [] mcg/mL * Trough/Random level ordered for []/[]/[] * A less than traditional dose and/or extended dosing interval has/have been selected due to likelihood of drug accumulation in obese patient/patient with h/o CKD. Piperacillin/tazobactam * [] g bolus administered over 30 minutes, then [] g IV extended infusion every 8 hours for CrCl greater than 20 mL/min OR every 12 hours for CrCl 20 mL/min or less and dialysis. * Aggressive dosing selected due to critically ill status/BMI 35 or more/history of cystic fibrosis. Tobramycin/Gentamicin/Amikacin * Patient meets criteria for extended-interval aminoglycoside dosing per the [place] nomogram * Dose: [] mg (7 mg/kg) or (15 mg/kg) IV every [] hours * Dosage based on adjusted body weight for patients weighing > 120% of ideal body weight. * Random level ordered for 6-14 hours after the start of the infusion to ensure dosing interval is appropriate. Tobramycin/Gentamicin/Amikacin * Patient is not a candidate for extended-interval dosing due to age/CrCl less than 20 mL/min/end stage renal disease/dialysis/fluctuating kidney function/treatment of Enterococcal endocarditis OR altered pharmacokinetics in the setting of /ascites/significant jimenez/cystic fibrosis. * Dose: [] mg ([] mg/kg) IV every [] hours * Dosage based on adjusted body weight for patients weighing > 120% of ideal body weight. * Goal trough level for [indication] : [] to [] mcg/mL * Goal peak level for [indication] : [] to [] mcg/mL * Peak and trough level ordered for []/[]/[] around the [] dose. Pharmacy will continue to follow and will adjust dose/frequency as necessary. Thank you.
[2020-12-20] MEDS ORDERED: GADOBUTROL 65ML VIAL IV ONE (12:35)
--- NOTE | 2020-12-20 12:51 | Magnetic Resonance Report ---
MRI OF THE BRAIN WITHOUT AND WITH IV CONTRAST CLINICAL HISTORY: Syncope. Headaches. Possible stroke. COMPARISON STUDY: Noncontrast head CT performed 12/19/2020 TECHNIQUE: MRI of the brain was performed from the vertex to the skull base utilizing various T1 and T2 weighted sequences. Following the IV administration of 7.5 mL of Gadavist contrast, additional enh anced images were obtained. FINDINGS: Sagittal T1, axial diffusion, proton density and T2 weighted axial, coronal FLAIR, and pre and post a xial T1-weighted images were acquired. These were supplemented with post gadolinium coronal T1 weight ed images. No intra or extra-axial mass lesions are visualized. Axial diffusion-weighted images reveal scattered tiny foci of restricted water diffusion within the r ight cerebellar hemisphere, and right occipital lobe. There is also an equivocal tiny focus of restri cted water diffusion within the posterior medial left occipital lobe. More prominent foci of restrict ed water diffusion are also present within the right frontal lobe, right parietal lobe, and right bas al ganglia. The distribution suggests watershed infarcts. There is no evidence of ventricular dilatation. Proton density T2-weighted and FLAIR images reveal moderate foci of increased T2 signal within the wh ite matter, likely on a small vessel basis. There are also foci of increased signal corresponding to the acute/subacute infarcts described above. There are no abnormal flow voids. There is no evidence of pathologic enhancement. IMPRESSION: 1. 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 The appearance and distribution suggests a watershed infarct etiolo gy. ACT 112: Negative or not required by law. Electronically signed by: Javier Jin M.D. 12/20/2020 12:50 PM
--- NOTE | 2020-12-20 13:18 | Neurology Consultation ---
Date of Consultation December 20, 2020 Assessment & Plan (1) Stroke: 1. MRI multiple embolic strokes 2. CTA head/neck- moderate plaques which appear calcified even in the aortic arch after discussion with radiology no shaggy plaque 3. plavix 75 mg and aspirin 81 mg daily x 21 days the plavix alone for life 4. optimize HTN, HLD DM LDL <70 5. PT/OT speech for discharge needs 6. ZIO as outpatient for further evaluation of possible pAfib unless seen on inpatient monitoring 7. follow up in Neurology 4-6 weeks after discharge from rehab Sangeetha Carranza PAC Present on Admission?: Yes (2) Heart disease: 1. follow with PCP/cardiology for further medical managment Present on Admission?: Yes Supervising Physician Co-Signing Physician Notes I have seen and discussed above patient with Dr Dickson Ann, neurology I have interviewed and examined this patient reviewed the above note the lab oratory studies and imaging studies and discussed the above recommendations with Sangeetha Carranza PA-C. She has also contacted radiology regarding the status of the thoracic aorta which is calcified but does not have shaggy plaque. The echocardiogram shows no particular source for emboli no orders extracranial circulation or the aorta so at this point in a man with multiple embolic events involving the right hemisphere and the distribution of the right vertebral artery with cerebellar infarctions I think the entity of paroxysmal atrial fibrillation would need to be considered and a Zio patch will need to be done on an outpatient basis. For now we are going to go with dual antiplatelet therapy unless of course we capture atrial fibrillation while he is here being monitored Exam shows a left hemiparesis involving the arm more than the leg with appropriate loss of facility for drift pronation sign etc. and with minor sensory complaints at most and no sensory neglect despite nondominant hemispheric involvement. 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 so perhaps he is actually improved from his status on admission which would be a typical course of embolic infarction I think he is going to need rehabilitation and I think is probably lost his independent status and his ability to operate a motor vehicle but only time will tell I will look at him tomorrow and if stable I will probably sign off the case recommend follow-up with neurology in about 3 weeks time, continuing the dual antiplatelet therapy until we have a chance to evaluate him and to schedule a ZIO Patch on an outpatient basis Dickson Ann MD History of Present Illness Reason for Consultation: CVA Requesting Physician: Naveen Linder MD Attending Physician: Skye Linder MD History of Present Illness Librado is a 85 year old male with PMH HLD, gout, preDM, history of HI, history of vasomotor rhinitis, history of second-degree AV block, CAD, MD- left eye, asymptomatic bilateral CAD, vitamin D deficiency, GERD, CKD III, OA, hearing loss, elevated LFTs. He lives alone, makes his own food and cleans his house and drives car and the son and daughter help him. He was brought to [facility] ED after he fell into the bathtub from the toilet and found by his grandson. EMS was was called and he was unable to move his left upper extremity. He was given a full dose of aspirin. He is sitting talking on the phone. he is worried about his left arm because he was laying on it for approx 4 hours because it is swollen. denies CP, SOB, abdominal, vision changes, N, V. Allergies Allergy/AdvReac Type Severity Reaction Status Date / Time No Known Allergies Allergy Unverified 12/19/20 19:47 Home Medications Medication Instructions Recorded Confirmed Type aspirin 325 mg PO DAILY 12/19/20 12/19/20 History buspirone [BuSpar] 10 mg PO BID PRN 12/19/20 12/19/20 History cinnamon bark [Cinnamon] 500 mg PO MOWEFR 12/19/20 12/19/20 History lisinopril [Zestril] 2.5 mg PO DAILY 12/19/20 12/19/20 History metoprolol succinate [Toprol XL] 50 mg PO DAILY 12/19/20 12/19/20 History [id number]-[id number] 1 tab PO DAILY 12/19/20 12/19/20 History [Centrum Silver] nitroglycerin [Nitrostat] 0.4 mg SUBLINGUAL UD PRN 12/19/20 12/19/20 History simvastatin 20 mg PO HS 12/19/20 12/19/20 History vitamin E 0 unit PO BID 12/19/20 12/19/20 History Patient History Medical History CAD (coronary artery disease) CKD (chronic kidney disease) stage 3, GFR 30-59 ml/min Dyslipidemia HTN (hypertension) Surgical History H/O heart artery stent History of inguinal hernia repair History of tonsillectomy and adenoidectomy Social History Smoking Status: Former smoker Hx Alcohol Use: No Hx Substance Use: No Preferred Language: Malagasy Supervisor Bonding Required: No Beliefs That Will Affect Care: None Current Living Situation: Alone Other Information That Helps Us Care for You: No Feels Safe at Home: Yes Safety Concerns: Feels Safe At This Time Assistive Devices: Glasses and Hearing Aid - Right Review of Systems Review of Systems: All systems reviewed & are unremarkable except as noted in HPI & below Physical Exam Physical Exam: Physical Exam: Constitutional: appearance over nourished Ears, Nose, Mouth and Throat: mucous membranes moist, no injection and skin normal, eyes normal Cardiovascular: normal S-1 and S-2 and regular rate and rhythm Respiratory: course breath sounds Musculoskeletal: left arm edema peripheral edema and decreased distal pulses Skin: neurocutaneous disease bilateral LE Eyes: extraocular muscles intact (EOMI) and pupils equal, round and reactive to light (PERRL) NEUROLOGIC EXAMINATION: Mental status: Alert and interactive Oriented to full date and location Oriented to person Speech fluent with no evidence of aphasia Cranial Nerves smile eye brow raise symmetric Reflexes: Deep tendon reflexes were symmetrical and graded 2/5. neutral toes Sensory: intact to light cool vibration Coordination: unable to lift left arm finger to nose right intact Gait/Stance: Posture lying in bed Motor: unable to asses due to left arm paresis Strength: hand measurement advisor right biceps triceps right 5/5 left 3+5 hand measurement advisor due to swell in arm unable to further assess, hip flex right 5/5, left 4+5, plantar flex ext bilaterally 5/5 Results & Data ([facility]) Vital Signs (Past 12 Hours) Vital Signs Temp Pulse Resp BP Pulse Ox 12/20/20 07:04 36.7 C 87 18 133/73 93 12/20/20 05:00 36.9 C 93 H 18 131/77 94 Laboratory Results Abnormal lab results 12/19/20 12/19/20 12/19/20 Range/Units 18:32 18:32 18:34 WBC 20.66 H (4.8-10.8) K/uL RBC 4.04 L (4.7-6.1) M/uL Hgb 13.1 L (14.0-18.0) g/dL Hct 37.3 L (42-52) % RDW Std Deviation 46.7 H (36.4-46.3) fL Neut # (Auto) 17.78 H (1.4-6.5) K/uL Bulloch # (Auto) 0.62 H (0.11-0.59) K/uL Immature Gran # (Auto) (0.00-0.02) K/uL Chloride (98-107) mmol/L Carbon Dioxide 18 L (21-32) mmol/L Anion Gap 14.0 H (3-11) BUN 29 H (7-18) mg/dl Creatinine 1.93 H (0.6-1.4) mg/dl Glucose 165 H (70-99) mg/dl POC Glucose 167 H (70-99) mg/dl Hemoglobin A1c (4.5-5.6) % Lactate (0.4-2.0) mmol/L Calcium (8.5-10.1) mg/dl AST 161 H (15-37) U/L ALT (12-78) U/L Troponin I 0.253 H* (0-0.045) ng/ml Albumin (3.4-5.0) gm/dl Ur Specific [place] (1.000-1.030) Urine Protein (Negative) Urine Ketones (Negative) Urine Blood (Negative) Ur Leukocyte Esterase (Negative) Urine RBC (Auto) (0-4) /hpf U Hyaline Cast (Auto) (0-5) /lpf U Epithel Cells (Auto) (0-5) /lpf Amorphous Sediment (None Prsent) Urine Mucus (None Prsent) 12/19/20 12/19/20 12/19/20 Range/Units 19:46 20:25 22:21 WBC (4.8-10.8) K/uL RBC (4.7-6.1) M/uL Hgb (14.0-18.0) g/dL Hct (42-52) % RDW Std Deviation (36.4-46.3) fL Neut # (Auto) (1.4-6.5) K/uL Bulloch # (Auto) (0.11-0.59) K/uL Immature Gran # (Auto) (0.00-0.02) K/uL Chloride (98-107) mmol/L Carbon Dioxide (21-32) mmol/L Anion Gap (3-11) BUN (7-18) mg/dl Creatinine (0.6-1.4) mg/dl Glucose (70-99) mg/dl POC Glucose (70-99) mg/dl Hemoglobin A1c (4.5-5.6) % Lactate 5.8 H* 3.5 H* (0.4-2.0) mmol/L Calcium (8.5-10.1) mg/dl AST (15-37) U/L ALT (12-78) U/L Troponin I (0-0.045) ng/ml Albumin (3.4-5.0) gm/dl Ur Specific [place] > 1.045 H (1.000-1.030) Urine Protein 2+ H (Negative) Urine Ketones Trace H (Negative) Urine Blood 3+ H (Negative) Ur Leukocyte Esterase Trace H (Negative) Urine RBC (Auto) 10-30 H (0-4) /hpf U Hyaline Cast (Auto) 10-30 H (0-5) /lpf U Epithel Cells (Auto) 10-20 H (0-5) /lpf Amorphous Sediment Present A (None Prsent) Urine Mucus Present A (None Prsent) 12/19/20 12/19/20 12/20/20 Range/Units 23:29 23:29 01:23 WBC 20.30 H (4.8-10.8) K/uL RBC 4.00 L (4.7-6.1) M/uL Hgb 12.7 L (14.0-18.0) g/dL Hct 36.4 L (42-52) % RDW Std Deviation (36.4-46.3) fL Neut # (Auto) 15.72 H (1.4-6.5) K/uL Bull[place] # (Auto) 2.50 H (0.11-0.59) K/uL Immature Gran # (Auto) 0.05 H (0.00-0.02) K/uL Chloride (98-107) mmol/L Carbon Dioxide (21-32) mmol/L Anion Gap (3-11) BUN (7-18) mg/dl Creatinine (0.6-1.4) mg/dl Glucose (70-99) mg/dl POC Glucose (70-99) mg/dl Hemoglobin A1c (4.5-5.6) % Lactate 3.2 H* (0.4-2.0) mmol/L Calcium (8.5-10.1) mg/dl AST (15-37) U/L ALT (12-78) U/L Troponin I 0.393 H* (0-0.045) ng/ml Albumin (3.4-5.0) gm/dl Ur Specific [place] (1.000-1.030) Urine Protein (Negative) Urine Ketones (Negative) Urine Blood (Negative) Ur Leukocyte Esterase (Negative) Urine RBC (Auto) (0-4) /hpf U Hyaline Cast (Auto) (0-5) /lpf U Epithel Cells (Auto) (0-5) /lpf Amorphous Sediment (None Prsent) Urine Mucus (None Prsent) 12/20/20 12/20/20 12/20/20 Range/Units 01:23 01:23 07:06 WBC (4.8-10.8) K/uL RBC (4.7-6.1) M/uL Hgb (14.0-18.0) g/dL Hct (42-52) % RDW Std Deviation (36.4-46.3) fL Neut # (Auto) (1.4-6.5) K/uL Bull[place] # (Auto) (0.11-0.59) K/uL Immature Gran # (Auto) (0.00-0.02) K/uL Chloride 117 H (98-107) mmol/L Carbon Dioxide 17 L (21-32) mmol/L Anion Gap (3-11) BUN 27 H (7-18) mg/dl Creatinine (0.6-1.4) mg/dl Glucose 122 H (70-99) mg/dl POC Glucose 135 H (70-99) mg/dl Hemoglobin A1c 5.8 H (4.5-5.6) % Lactate (0.4-2.0) mmol/L Calcium 8.2 L (8.5-10.1) mg/dl AST 498 H (15-37) U/L ALT 102 H (12-78) U/L Troponin I 0.375 H* (0-0.045) ng/ml Albumin 3.3 L (3.4-5.0) gm/dl Ur Specific [place] (1.000-1.030) Urine Protein (Negative) Urine Ketones (Negative) Urine Blood (Negative) Ur Leukocyte Esterase (Negative) Urine RBC (Auto) (0-4) /hpf U Hyaline Cast (Auto) (0-5) /lpf U Epithel Cells (Auto) (0-5) /lpf Amorphous Sediment (None Prsent) Urine Mucus (None Prsent) 12/20/20 Range/Units 10:50 WBC (4.8-10.8) K/uL RBC (4.7-6.1) M/uL Hgb (14.0-18.0) g/dL Hct (42-52) % RDW Std Deviation (36.4-46.3) fL Neut # (Auto) (1.4-6.5) K/uL [place] # (Auto) (0.11-0.59) K/uL Immature Gran # (Auto) (0.00-0.02) K/uL Chloride (98-107) mmol/L Carbon Dioxide (21-32) mmol/L Anion Gap (3-11) BUN (7-18) mg/dl Creatinine (0.6-1.4) mg/dl Glucose (70-99) mg/dl POC Glucose (70-99) mg/dl Hemoglobin A1c (4.5-5.6) % Lactate (0.4-2.0) mmol/L Calcium (8.5-10.1) mg/dl AST (15-37) U/L ALT (12-78) U/L Troponin I 0.220 H* (0-0.045) ng/ml Albumin (3.4-5.0) gm/dl Ur Specific [place] (1.000-1.030) Urine Protein (Negative) Urine Ketones (Negative) Urine Blood (Negative) Ur Leukocyte Esterase (Negative) Urine RBC (Auto) (0-4) /hpf U Hyaline Cast (Auto) (0-5) /lpf U Epithel Cells (Auto) (0-5) /lpf Amorphous Sediment (None Prsent) Urine Mucus (None Prsent) Diagnostic Findings TTE- 60-65% EF no ASD MRI brain-Multiple right hemispheric infarcts involving the frontal parietal and occipital lobes, as well as the right cerebellar hemisphere. The appearance and distribution suggests a watershed infarct etiology. CTA head- Exam mildly compromised by motion artifact. No central vessel occlusion. No intracranial aneurysm. CTA neck- Exam moderately compromised by motion artifact. Atherosclerotic plaque within the proximal bilateral internal carotid arteries without definite stenosis. Suspected severe stenosis of the proximal left vertebral artery, suboptimally assessed on this exam. (1) Stroke CVA mechanism: unspecified Qualified Code(s): I63.9 - Cerebral infarction, unspecified
[2020-12-20] MEDS ORDERED: VANCOMYCIN HCL 1,250 MG in SODIUM CHLORIDE 0.9% 250 ML IV SCH (14:00)
--- NOTE | 2020-12-20 17:03 | Hospitalist Progress Note ---
Date of Service December 20, 2020 Assessment & Plan (1) Stroke: Acute Stroke: 1. 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 presents with fall , left sided weakness CTA head/neck- moderate plaques which appears calcified on aortic arch appreciate input from Neurology Plavix 75 mg and aspirin 81 mg daily x 21 days the plavix alone for life minimize risk factors for future CVA : better control HTN /diabetes appreciate input from PT/OT and speech eval will need acute rehab Hyperlipidemia change to high intensity statin ; goal LDL < 70 . 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 follow up in Neurology 4-6 weeks after discharge from rehab Sangeetha Carranza PAC full code Disposition will need referral for acute rehab plan of care discussed with pt at bedside and son over phone , answered all questions Admission and Anticipated Discharge Date Admission Date: December 19, 2020 Subjective follow up visit for acute CVA /leukocytosis /possible UTI pt is awake and alert mild dysarthria noted able to lift his left arm asking about rehab , chance of recovery from stroke no complain of shortness of breath , no chest pain , no cough , no fever or chills Review of Systems Review of Systems: All systems reviewed & are unremarkable except as noted in Subjective Physical Exam Constitutional: WD/WN, vitals as above Eyes: + anicteric sclerae Neck: trachea midline, no thyromegaly Results & Data Results & Data ([facility]) Vital Signs (Past 12 Hours) Vital Signs Temp Pulse Resp BP Pulse Ox 12/20/20 15:42 36.8 C 90 18 135/76 92 12/20/20 07:04 36.7 C 87 18 133/73 93 (1) Stroke CVA mechanism: unspecified Qualified Code(s): I63.9 - Cerebral infarction, unspecified
[2020-12-20] MEDS: cefTRIAXone SODIUM 1,000 MG in DEXTROSE 5% 50 ML IV SCH (17:56)
[2020-12-20] MEDS ORDERED: SIMVASTATIN 20 MG TAB PO SCH (21:00)
--- NOTE | 2020-12-21 05:01 | Electrocardiogram Report ---
Test Reason : Blood Pressure : / mmHG Vent. Rate : 129 BPM Atrial Rate : 061 BPM P-R Int : 000 ms QRS Dur : 138 ms QT Int : 394 ms P-R-T Axes : 000 101 -10 degrees QTc Int : 577 ms Poor data quality, interpretation may be adversely affected Sinus tachycardia vs Possible Atrial flutter with 2 to 1 block Right bundle branch block Possible Inferior infarct , age undetermined Abnormal ECG When compared with ECG of 19-DEC-2020 18:36, Tachyardia is now present Confirmed by Matthew Ortega ([id number]) on 12/21/2020 5:01:38 AM Referred By: REFERRED SELF Confirmed By:Matthew Ortega
[2020-12-21 07:22] LABS: Basophils # (auto) 0.05 K/uL (0-0.2); Basophils % (auto) 0.4 %; Eosinophils # (auto) 0.12 K/uL (0-0.5); Eosinophils % (auto) 0.9 %; Hematocrit (blood only) 35.9 % (42-52); Hemoglobin 12.3 g/dL (14.0-18.0); Immature Granulocytes # (auto) 0.02 K/uL (0.00-0.02); Immature Granulocytes % (auto) 0.1 %; Lymphocytes # (auto) 2.02 K/uL (1.2-3.4); Mean Corpuscular Hemoglobin 31.3 pg (25-34); Mean Corpuscular Hgb Conc 34.3 g/dL (32-36); Mean Corpuscular Volume 91.3 fL (80-100); Mean Platelet Volume 10.5 fL (7.4-10.4); Monocytes # (auto) 1.44 K/uL (0.11-0.59); Monocytes % (auto) 10.7 %; Neutrophils # (auto) 9.86 K/uL (1.4-6.5); Neutrophils % (auto) 72.9 %; Platelet Count 172 K/uL (130-400); RDW Coefficient of Variation 13.9 % (11.5-14.5); RDW Standard Deviation 47.2 fL (36.4-46.3); Red Blood Count 3.93 M/uL (4.7-6.1); White Blood Count 13.51 K/uL (4.8-10.8)
[2020-12-21 07:53] LABS: BUN Creatinine Ratio 16.8 (10-20); Calcium 8.7 mg/dl (8.5-10.1); Creatinine Clr Calc Pharmacy 40.6 ml/min; Est GFR (African American) 61.8; Est GFR (Non-African American) 53.4; Potassium 4.2 mmol/L (3.5-5.1)
[2020-12-21] MEDS: CLOPIDOGREL BISULFATE 75 MG TAB PO SCH (07:59)
[2020-12-21] MEDS: ASPIRIN 325 MG ECTAB PO SCH (07:59)
[2020-12-21] MEDS: DOXYCYCLINE HYCLATE 100 MG CAP PO SCH ×2 (07:59→20:08)
[2020-12-21] MEDS: CEROVITE ADV FORMULA TAB PO SCH (11:18)
--- NOTE | 2020-12-21 12:49 | Communication Note ---
Date of Service: December 21, 2020 I saw Mr. 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 I suspect that the best explanation for this embolic shower is paroxysmal atrial fibrillation but we cannot document and he certainly has no evidence of a significant extracranial vascular disease, shaggy aortic plaque and no evidence for cardiomyopathy or valvular abnormality that would produce such a pattern of multiple emboli For now we have little choice but to go with dual antiplatelet therapy, continue to monitor him, and if no atrial arrhythmias are found during inpatient stay, to do an outpatient ZIO Patch He will need transfer to rehabilitation hospital likely [facility] in [place] I am going to check him tomorrow and probably Wednesday just to be sure there is been no interval development of atrial fibrillation or a deterioration in his neurologic status but after that point we will probably sign off the case and will arrange to see him back in our office in about 3 to 4 weeks Dickson Ann MD
[2020-12-21] MEDS: cefTRIAXone SODIUM 1,000 MG in DEXTROSE 5% 50 ML IV SCH (17:14)
--- NOTE | 2020-12-21 19:51 | Hospitalist Progress Note ---
Date of Service December 21, 2020 Assessment & Plan (1) Stroke: Acute Stroke: 1. 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 presents with fall , left sided weakness CTA head/neck- moderate plaques which appears calcified on aortic arch appreciate input from Neurology Plavix 75 mg and aspirin 81 mg daily x 21 days the plavix alone for life minimize risk factors for future CVA : better control HTN /diabetes appreciate input from PT/OT and speech priscila recommends acute rehab referral made to [facility] Hyperlipidemia change to high intensity statin ; goal LDL < 70 . monitoring tech /ZIO patch as outpatient for further evaluation of possible pAfib unless seen on inpatient monitoring . follow up in Neurology 4-6 weeks after discharge from rehab Sangeetha DEVI full code Disposition will need referral for acute rehab , plan of care discussed with pt at bedside and son over phone , answered all questions Admission and Anticipated Discharge Date Admission Date: December 19, 2020 Subjective follow up visit for acute CVA /leukocytosis /possible UTI comfortable , offers no new complain has persistent left sided weakness, able to move and elevate left arm no cough or sob no fever or chills Physical Exam 2 Constitutional: WD/WN, vitals as above Eyes: + anicteric sclerae Neck: trachea midline, no thyromegaly Results & Data Results & Data ([facility]) Vital Signs (Past 12 Hours) Vital Signs Temp Pulse Pulse Resp BP Pulse Ox 12/21/20 19:00 37.2 C 97 H 20 120/72 90 12/21/20 15:59 36.3 C L 90 20 149/89 H 93 12/21/20 11:35 36.5 C 94 H 19 133/74 91 12/21/20 08:13 36.7 C 100 H 18 119/65 95 (1) Stroke CVA mechanism: unspecified Qualified Code(s): I63.9 - Cerebral infarction, unspecified
[2020-12-21] MEDS: ATORVASTATIN 40 MG TAB PO SCH (20:08)
[2020-12-21] MEDS ORDERED: MELATONIN 3 MG TAB PO PRN (21:16)
[2020-12-22 07:01] LABS: Basophils # (auto) 0.04 K/uL (0-0.2); Basophils % (auto) 0.3 %; Eosinophils # (auto) 0.26 K/uL (0-0.5); Eosinophils % (auto) 2.1 %; Hematocrit (blood only) 37.6 % (42-52); Hemoglobin 12.8 g/dL (14.0-18.0); Immature Granulocytes # (auto) 0.03 K/uL (0.00-0.02); Immature Granulocytes % (auto) 0.2 %; Lymphocytes # (auto) 2.62 K/uL (1.2-3.4); Lymphocytes % (auto) 21.5 %; Mean Corpuscular Hemoglobin 31.1 pg (25-34); Mean Corpuscular Volume 91.3 fL (80-100); Mean Platelet Volume 10.1 fL (7.4-10.4); Monocytes # (auto) 1.43 K/uL (0.11-0.59); Monocytes % (auto) 11.8 %; Neutrophils # (auto) 7.78 K/uL (1.4-6.5); Neutrophils % (auto) 64.1 %; Platelet Count 198 K/uL (130-400); RDW Coefficient of Variation 13.7 % (11.5-14.5); RDW Standard Deviation 45.5 fL (36.4-46.3); Red Blood Count 4.12 M/uL (4.7-6.1); White Blood Count 12.16 K/uL (4.8-10.8)
[2020-12-22 07:40] LABS: BUN Creatinine Ratio 18.3 (10-20); Calcium 8.9 mg/dl (8.5-10.1); Creatinine Clr Calc Pharmacy 41.3 ml/min; Est GFR (African American) 63.1; Est GFR (Non-African American) 54.4
[2020-12-22] MEDS: DOXYCYCLINE HYCLATE 100 MG CAP PO SCH ×2 (08:04→20:50)
[2020-12-22] MEDS: CLOPIDOGREL BISULFATE 75 MG TAB PO SCH (08:04)
[2020-12-22] MEDS: ASPIRIN 325 MG ECTAB PO SCH (08:04)
--- NOTE | 2020-12-22 11:45 | Communication Note ---
Date of Service: December 22, 2020 I saw Mr. drew today. He is sitting in a chair is awake alert cooperative he has some proximal weakness of the left arm and significant distal weakness but the pattern now looks to be that of a distal left radial mononeuropathy rather than purely the effects of the CVA. He has intact strength in the left tricep and the brachioradialis appears to be reasonably good. There may be some weakness of external rotation due to anconeus weakness, there is moderate weakness of dorsiflexion of the wrist but profound weakness of the extensors of the fingers and the thumb He was lying on the left arm for a period of 4 hours and I suspected compress that in the region of the upper forearm and suspect this is to some degree a posterior interosseous neuropathy superimposed upon effects of the CVA or rather multiple embolic CVA events involving the left hemisphere and I think the left cerebellum He has minimal other deficits [facility] He will need follow-up in neurology in about 4 to 6 weeks and should be on a combination of aspirin and Plavix until we have time to review the ZIO Patch which needs to be ordered outpatient and I think he is going to need an EMG at some point if the pattern of distal left radial mononeuropathy persists but for now this may prove to be a demyelinating lesion and be reversible he is going to need rehabilitation no matter what I am going to sign off the case at this point and we will arrange for the follow-up visits on an outpatient basis tomorrow when I am back in the office Dickson Ann MD
[2020-12-22] MEDS: CEROVITE ADV FORMULA TAB PO SCH (12:24)
[2020-12-22] MEDS: cefTRIAXone SODIUM 1,000 MG in DEXTROSE 5% 50 ML IV SCH (16:50)
--- NOTE | 2020-12-22 17:24 | Hospitalist Progress Note ---
Date of Service December 22, 2020 Assessment & Plan (1) Stroke: Acute Stroke: 1. 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 presents with fall , left sided weakness CTA head/neck- moderate plaques which appears calcified on aortic arch appreciate input from Neurology Plavix 75 mg and aspirin 81 mg daily x 21 days the plavix alone for life minimize risk factors for future CVA : better control HTN /diabetes appreciate input from PT/OT and speech eval recommends acute rehab referral made to [facility] appreciate input form Neurology clinic visit in 4-6 weeks out patient Zio patch to assess evidence of arrhythmia Hyperlipidemia change to high intensity statin/lipitor 40 mg daily ; goal LDL < 70 Possible sepsis with elevated white count, elevated lactic acid, resolved, wbc count has improved Lactic acid level normalized with IV fluid source of infection : possible urinary tract infection. The patient also has some dry cough. Empirically started on vancomycin and Zosyn abx changed to PO Doxycycline and Rocephin medically stable will be discharged with 5 more days of Doxy Acute kidney injury on chronic kidney disease stage III, resolved, cr normalized with IV fluid Mild elevation of troponin: Could be demand ischemia. cardiac strain in setting of sepsis , acute CVA no complain of chest pain ECHO no wall motion abnormality no further cardiac work up needed full code Disposition will need acute rehab , post CVA referral made for [facility] tx to rehab tomorrow if insurance auth available plan of care discussed with pt at bedside and son over phone , answered all questions Admission and Anticipated Discharge Date Admission Date: December 19, 2020 Subjective follow up visit for acute CVA /leukocytosis /possible UTI comfortable , offers no new complain has persistent left sided weakness, able to move and elevate left arm no cough or sob no fever or chills Review of Systems Review of Systems: All systems reviewed & are unremarkable except as noted in Subjective Physical Exam Constitutional: WD/WN, vitals as above Eyes: + anicteric sclerae Neck: trachea midline, no thyromegaly Respiratory: normal respiratory effort, lungs clear to auscultation Cardiovascular: RRR, no murmur, no edema Gastrointestinal (Abdomen): Percussion/Palpation: abdomen soft; abdomen nontender Musculoskeletal: left sided weakness Skin: no rashes, warm and dry Neurologic: left sided weakness due to acute CVA Psychiatric: A+Ox3, euthymic affect Results & Data Results & Data ([facility]) Vital Signs (Past 12 Hours) Vital Signs Temp Pulse Resp BP Pulse Ox 12/22/20 16:10 36.7 C 91 H 19 156/71 H 91 12/22/20 12:03 36.7 C 98 H 20 123/73 95 12/22/20 07:35 36.9 C 84 19 137/67 91 (1) Stroke CVA mechanism: unspecified Qualified Code(s): I63.9 - Cerebral infarction, unspecified
[2020-12-22] MEDS: METOPROLOL SUCC 50MG EXT REL TAB PO SCH (20:49)
[2020-12-22] MEDS: ATORVASTATIN 40 MG TAB PO SCH (20:50)
[2020-12-23] MEDS: CLOPIDOGREL BISULFATE 75 MG TAB PO SCH (07:48)
[2020-12-23] MEDS: ASPIRIN 325 MG ECTAB PO SCH (07:49)
[2020-12-23] MEDS: DOXYCYCLINE HYCLATE 100 MG CAP PO SCH (07:49)
[2020-12-23] MEDS: METOPROLOL SUCC 50MG EXT REL TAB PO SCH (07:49)
[2020-12-23] MEDS ORDERED: lisinopril 2.5 MG TAB PO SCH (09:00)
[2020-12-23] MEDS: CEROVITE ADV FORMULA TAB PO SCH (12:24)
[2020-12-23] MEDS ORDERED: STROKE PATIENT DISCHARGE STA (12:50)
--- NOTE | 2020-12-23 14:02 | Discharge Summary ---
Date of Service December 23, 2020 Admission HPI Per Admitting Provider DICTATED BY: Kadeem Bryan MD DATE OF ADMISSION: 12/19/2020 CHIEF COMPLAINT: Stroke-like episode. HISTORY OF PRESENT ILLNESS: This is an 85-year-old male with past medical history significant for hyperlipidemia, gout, prediabetes, history of [place], history of vasomotor rhinitis, history of second-degree AV block, CAD, macular degeneration of the left eye, asymptomatic bilateral carotid artery disease, vitamin D deficiency, GERD, stage III chronic kidney disease, generalized osteoarthritis, hearing loss, elevated LFTs. Lives alone. The patient says he takes care of himself. He cooks food and cleans his house and drives car and the son and daughter help him. Today, he had gone to the restroom around noontime at which time he fell off the edge of the toilet seat into the bathtub as per the ER and he was found approximately around 5:30 p.m. by the grandson, at which point EMS was called and the patient could not move his left upper extremity. He was thought to have a stroke and was given a full dose of aspirin. The patient has some right gaze preference and some disorientation of the right and left. Currently patient is alert and oriented, hard of hearing, but able to give his history. He complains of some headache about 3/10 in severity and also bilateral lower ribcage pain. He says his vision is okay. Denies any sore throat. Denies any cough. No shortness of breath. No dysphagia. No facial droop. No chest pain, no shortness of breath, no nausea, no vomiting, no abdominal pain. Denies any diarrhea, or constipation. He says his bladder movements are okay. No rash. He says he ambulates okay without any support. He says he is active. Principal Diagnosis Acute Stroke Sepsis -resolved acute renal failure on CKD stage 3 -resolved Discharge Exam Constitutional WD/WN, vitals as above Eyes + anicteric sclerae Neck trachea midline, no thyromegaly Respiratory normal respiratory effort, lungs clear to auscultation Cardiovascular RRR, no murmur, no edema Gastrointestinal (Abdomen) Percussion/Palpation: abdomen soft; abdomen nontender Skin no rashes, warm and dry Psychiatric A+Ox3, euthymic affect Discharge Data Allergies Allergy/AdvReac Type Severity Reaction Status Date / Time No Known Allergies Allergy Unverified 12/19/20 19:47 Consultations 12/19/20 19:53 ED Decision to Admit Stat 12/19/20 23:06 Consult Case Management - Discharge Planning Routine Consult Case Management - Discharge Planning Routine 12/20/20 08:00 Consult Neurology Routine Ordered Studies 12/19/20 18:18 CT angio head w con Stat CT angio neck with con Stat CT head/brain wo con Stat 12/20/20 00:54 MR brain wo/w con Urgent Hospital Course (1) Stroke: Acute Stroke: 1. 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 presents with fall , left sided weakness CTA head/neck- moderate plaques which appears calcified on aortic arch appreciate input from Neurology Plavix 75 mg and aspirin 81 mg daily x 21 days the plavix alone for life minimize risk factors for future CVA : better control HTN /diabetes appreciate input from PT/OT and speech eval recommends acute rehab referral made to [facility] appreciate input form Neurology clinic visit in 4-6 weeks out patient Zio patch to assess evidence of arrhythmia Hyperlipidemia change to high intensity statin/lipitor 40 mg daily ; goal LDL < 70 Possible sepsis with elevated white count, elevated lactic acid, resolved, wbc count has improved Lactic acid level normalized with IV fluid source of infection : possible urinary tract infection. The patient also has some dry cough. Empirically started on vancomycin and Zosyn abx changed to PO Doxycycline and Rocephin medically stable will be discharged with 5 more days of Doxy Acute kidney injury on chronic kidney disease stage III, resolved, cr normalized with IV fluid Mild elevation of troponin: Could be demand ischemia. cardiac strain in setting of sepsis , acute CVA no complain of chest pain ECHO no wall motion abnormality no further cardiac work up needed full code Disposition will need acute rehab , post CVA referral made for [facility] pt is transferred to rehab today plan of care discussed with pt at bedside and son over phone , answered all questions Total Time Total Time Spent Total Time Spent (In Minutes): 30 mins Total Time Includes: Discharge Planning and Medication Reconciliation Discharge Plan Discharge Items Patient Disposition: Transfer Inpatient Rehab Fac Reason For Visit: CVA Discharge Diagnosis: Acute Stroke Sepsis -resolved acute renal failure on CKD stage 3 -resolved Activity: Resume your previous activity Non-emergency contact: Primary Care Provider Call non-emergency contact if: you have any medication questions Follow-up/Referrals: Tip Dill MD [Primary Care Provider] - Diet: Heart Healthy Diet Texture: Easy to Chew Rojelio Attending Provider Instructions: Risk Factors for Stroke: You can reduce your chances of stroke by working with your medical provider to adopt a healthy lifestyle. Some specific ways to lower your chance of stroke are: * If you are a smoker, now is the time to stop smoking cigarettes * If you are diabetic, improve the control of your blood sugars * Avoid excessive amounts of alcohol * Control high blood pressure * Lose weight if you are overweight * Be sure to lead an active lifestyle * Eat a healthy diet low in salt, cholesterol and fat You should know about other risk factors for stroke that you are unable to control. These include: * Age 55 years or older * Male gender * Certain racial groups: , or / * Family History of Stroke, Mini stroke or Heart Attack * Sickle Cell Disease Follow Up: It is important for you to keep your follow up appointments with your medical provider. Who to Call and When: Medical Emergencies: Call 911 immediately if you experience any of the following warning signs and symptoms of Stroke: * Sudden numbness or weakness of the face, arm or leg, especially on one side of the body * Sudden confusion, trouble speaking or understanding * Sudden trouble seeing in one or both eyes * Sudden trouble walking, dizziness, loss of balance or coordination * Sudden severe headache with no cause Do not delay calling 911 if you experience any warning signs or symptoms of a stroke. Delay in seeking medical attention may affect what treatments can be given to you. . Rojelio Crew Director Provider Instructions: take Plavix 75 mg 1 tablet and aspirin 81 mg 1 tablet daily x 21 days I take with food ) then cont Plavix 75 mg daily alone for life Neurology follow up in Clinic in 4-6 weeks Zio Patch Cardiac monitoring in 3-4 weeks , please have scheduled /arranged through your family physicians clinic Pending Studies at Discharge: No Stand-Alone Forms: [facility] Skilled Items Patient informed of condition?: Yes DNR: No Discharge Level of Care: Acute rehab Communicable Disease: No Discharge Prognosis: Stable Lines: None Urinary Catheter: No Medications and DC Order Prescriptions: New atorvastatin 40 mg Tablet 40 mg PO HS 30 Days Qty: 30 RF: 0 melatonin 3 mg Tablet 3 mg PO HS PRN (Reason: sleep) Qty: 30 RF: 0 clopidogrel 75 mg Tablet 75 mg PO QAM Qty: 30 RF: 0 doxycycline hyclate 100 mg Capsule 100 mg PO BID 5 Days Qty: 10 RF: 0 aspirin 81 mg tablet,delayed release (DR/EC) 81 mg PO DAILY Qty: 21 RF: 0 Continued metoprolol succinate [Toprol XL] 50 mg tablet extended release 24 hr 50 mg PO DAILY RF: 0 nitroglycerin [Nitrostat] 0.4 mg Tablet, Sublingual 0.4 mg sublingual UD PRN (Reason: Chest Pain) RF: 0 lisinopril [Zestril] 2.5 mg tablet 2.5 mg PO DAILY RF: 0 cinnamon bark [Cinnamon] 500 mg Capsule 500 mg PO MOWEFR RF: 0 buspirone 10 mg Tablet 10 mg PO BID PRN (Reason: Anxiety) RF: 0 vitamin E 400 unit Tablet 0 unit PO BID RF: 0 [id number]-[id number]-vbzloe Tablet 1 tab PO DAILY RF: 0 Discontinued aspirin 325 mg Tablet 325 mg PO DAILY RF: 0 simvastatin 20 mg Tablet 20 mg PO HS RF: 0 Discharge Orders: Discharge Order (Routine); Ordered 12/23/20 Ordered By: Skye Linder Admission Data Admit Date/Time: 12/19/20 21:39 Attending Provider: Skye Linder Admit Provider: Kadeem Bryan Primary Care Provider: Tip Dill Other Providers: [facility] ; Kadeem Bryan ; Sangeetha Carranza ; Dickson Ann Kathleen ; Salty Sharpe Other Interventions: Discharge Summary Assessment (RN) Last Done: 12/23/20 12:26
--- NOTE | 2020-12-23 16:10 | Communication Note ---
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
== END 2020-12-23 13:54 ==
LOC: ED 18:22 → 2S 21:39 → 2W 12-22 16:29

== ENCOUNTER 2023-08-05 14:10 | Inpatient (IN) ==
[2023-08-05] MEDS ORDERED: DIPHTHERIA/TETANUS/PERTUSSIS Vaccine (Tdap, Age 7+yrs) 0.5mL SYR/VL IM ONE (14:38)
--- NOTE | 2023-08-05 14:39 | Emergency Department Note ---
History of Present Illness General Chief complaint: Fall Stated complaint: FALL Time Seen by Provider: 08/05/23 14:12 History of Present Illness Provider complaint: Fall Onset (ago): day(s) 1 Location: face and chest 88-year-old male presents emergency department for fall. Patient is on Eliquis. Patient reports he tripped and fell yesterday. Patient is reporting pain over his face and over his chest. No difficulty breathing. No abdominal pain. No melena or hematochezia. Home Medications Medication Instructions Recorded Confirmed Type cinnamon bark 500 mg capsule 500 mg PO MOWEFR 12/19/20 08/05/23 History (Cinnamon) nitroglycerin 0.4 mg sublingual 0.4 mg sublingual UD PRN Chest Pain 12/19/20 08/05/23 History tablet (Nitrostat) aspirin 81 mg tablet,delayed 81 mg PO DAILY #21 tabs 12/23/20 08/05/23 Rx release acetaminophen 325 mg capsule 650 mg PO QID PRN Fever Or Pain 05/26/23 08/05/23 History albuterol sulfate 90 mcg/actuation 2 puff inhalation Q4H PRN 05/26/23 08/05/23 History aerosol inhaler (Ventolin HFA) Shortness Of Breath Or Wheezing atorvastatin 40 mg tablet 40 mg PO DAILY 05/26/23 08/05/23 History ergocalciferol (vitamin D2) 50 mcg 50 mcg PO DAILY 05/26/23 08/05/23 History (2,000 unit) tablet ipratropium bromide 42 mcg (0.06 2 spray intranasal QID PRN 05/26/23 08/05/23 History %) nasal spray Shortness Of Breath Or Wheezing oapxgactbkei-hbdqwwtp-kjslkj tablet 1 tab PO DAILY 05/26/23 08/05/23 History umeclidinium 62.5 mcg-vilanterol 1 inh inhalation DAILY 05/26/23 08/05/23 History 25 mcg/actuation powdr for inhalation apixaban 2.5 mg tablet (Eliquis) 2.5 mg PO HS 08/05/23 08/05/23 History lisinopril 2.5 mg tablet 2.5 mg PO DAILY 08/05/23 08/05/23 History metoprolol succinate 25 mg 25 mg PO DAILY 08/05/23 08/05/23 History tablet,extended release 24 hr Allergies Allergy/AdvReac Type Severity Reaction Status Date / Time cheese Allergy Intermediate Hives Verified 08/05/23 18:29 shellfish derived Allergy Intermediate Hives Verified 08/05/23 18:29 Past Med/Surg History Medical History (Updated 08/05/23 @ 21:53 by Titi Torres MD) Acute DE CAD (coronary artery disease) CKD (chronic kidney disease) stage 3, GFR 30-59 ml/min COPD (chronic obstructive pulmonary disease) Diverticulosis Dyslipidemia Gout H/O: CVA (cerebrovascular accident) HTN (hypertension) Ischemic heart disease due to coronary artery obstruction Kidney stone Osteoarthritis PAD (peripheral artery disease) Protein calorie malnutrition Vitamin D deficiency Surgical History H/O heart artery stent History of bronchoscopy History of inguinal hernia repair History of tonsillectomy and adenoidectomy Family History Sister Cancer Breast Daughter Cancer Ovarian Father Cancer Lung cancer Brother Cancer Pancreatic Social History (Updated 08/05/23 @ 19:59 by Daniela Marquez DO) Smoking Status: Former smoker Tobacco Type: Cigarettes packs per day: 1.5; Smoking End Date: quit 2002; Second Hand Exposure: No; Do You Dip or Chew Tobacco: No; Hx Alcohol Use: No Hx Substance Use: No Preferred Language: Icelandic Communication Ability: Effective Visual Impairment: Partially Limited Hearing Ability: Use of Hearing Aid Guard Sergeant Required: No Beliefs That Will Affect Care: None Current Living Situation: Alone current occupational status: retired 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; 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 [employer] Feels Safe at Home: Yes Diet: regular during the past year weight has: decreased > 10 lbs Assistive Devices: Walker Physical Exam Vital Signs Vital Signs - 24 hr 08/05/23 14:17 08/05/23 14:19 08/05/23 16:56 Temperature 36.7 C Temperature Source Oral Pulse Rate 95 H 101 H Pulse Rate [Apical] 108 H Pulse Rate from SpO2 Sensor Respiratory Rate 20 28 H Blood Pressure 126/80 Blood Pressure [Right Arm] 108/84 Blood Pressure Mean 95 Blood Pressure Mean [Right Arm] 92 Blood Pressure Position Semi-fowlers Blood Pressure Position [Right Arm] Semi-fowlers Pulse Oximetry 97 95 Oxygen Delivery Method Room Air Room Air Sepsis Recent Fever Within 48 Hours No Sepsis New/Unexplained Change in Mental Status N/A Sepsis Action Taken by Nursing No Action Required 08/05/23 18:25 08/05/23 20:00 08/05/23 14:16 Temperature Temperature Source Pulse Rate 106 H 86 Pulse Rate [Apical] Pulse Rate from SpO2 Sensor 87 Respiratory Rate 20 Blood Pressure Blood Pressure [Right Arm] Blood Pressure Mean Blood Pressure Mean [Right Arm] Blood Pressure Position Blood Pressure Position [Right Arm] Pulse Oximetry 97 96 Oxygen Delivery Method Room Air Sepsis Recent Fever Within 48 Hours Sepsis New/Unexplained Change in Mental Status Sepsis Action Taken by Nursing 08/05/23 14:20 08/05/23 14:30 08/05/23 14:40 Temperature Temperature Source Pulse Rate 94 H 97 H 95 H Pulse Rate [Apical] Pulse Rate from SpO2 Sensor 61 88 92 H Respiratory Rate 16 22 19 Blood Pressure Blood Pressure [Right Arm] Blood Pressure Mean Blood Pressure Mean [Right Arm] Blood Pressure Position Blood Pressure Position [Right Arm] Pulse Oximetry 98 96 92 Oxygen Delivery Method Sepsis Recent Fever Within 48 Hours Sepsis New/Unexplained Change in Mental Status Sepsis Action Taken by Nursing 08/05/23 14:50 08/05/23 15:00 08/05/23 15:10 Temperature Temperature Source Pulse Rate 91 H 92 H 91 H Pulse Rate [Apical] Pulse Rate from SpO2 Sensor 87 95 H 91 H Respiratory Rate 20 19 14 Blood Pressure Blood Pressure [Right Arm] Blood Pressure Mean Blood Pressure Mean [Right Arm] Blood Pressure Position Blood Pressure Position [Right Arm] Pulse Oximetry 98 96 97 Oxygen Delivery Method Sepsis Recent Fever Within 48 Hours Sepsis New/Unexplained Change in Mental Status Sepsis Action Taken by Nursing 08/05/23 15:20 08/05/23 15:30 08/05/23 16:11 Temperature Temperature Source Pulse Rate 90 102 H 84 Pulse Rate [Apical] Pulse Rate from SpO2 Sensor 84 92 H Respiratory Rate 21 21 20 Blood Pressure Blood Pressure [Right Arm] Blood Pressure Mean Blood Pressure Mean [Right Arm] Blood Pressure Position Blood Pressure Position [Right Arm] Pulse Oximetry 95 97 Oxygen Delivery Method Sepsis Recent Fever Within 48 Hours Sepsis New/Unexplained Change in Mental Status Sepsis Action Taken by Nursing 08/05/23 16:20 08/05/23 16:30 08/05/23 16:40 Temperature Temperature Source Pulse Rate 93 H 100 H 88 Pulse Rate [Apical] Pulse Rate from SpO2 Sensor 91 H Respiratory Rate 16 20 18 Blood Pressure Blood Pressure [Right Arm] Blood Pressure Mean Blood Pressure Mean [Right Arm] Blood Pressure Position Blood Pressure Position [Right Arm] Pulse Oximetry 92 Oxygen Delivery Method Sepsis Recent Fever Within 48 Hours Sepsis New/Unexplained Change in Mental Status Sepsis Action Taken by Nursing 08/05/23 16:50 08/05/23 16:56 08/05/23 16:56 Temperature Temperature Source Pulse Rate 106 H 108 H Pulse Rate [Apical] Pulse Rate from SpO2 Sensor 111 H 107 H Respiratory Rate 18 24 Blood Pressure 108/84 Blood Pressure [Right Arm] Blood Pressure Mean 93 Blood Pressure Mean [Right Arm] Blood Pressure Position Blood Pressure Position [Right Arm] Pulse Oximetry 89 L 94 Oxygen Delivery Method Sepsis Recent Fever Within 48 Hours Sepsis New/Unexplained Change in Mental Status Sepsis Action Taken by Nursing 08/05/23 17:00 08/05/23 17:10 08/05/23 17:20 Temperature Temperature Source Pulse Rate 124 H 102 H 105 H Pulse Rate [Apical] Pulse Rate from SpO2 Sensor 122 H 103 H 106 H Respiratory Rate 20 21 21 Blood Pressure Blood Pressure [Right Arm] Blood Pressure Mean Blood Pressure Mean [Right Arm] Blood Pressure Position Blood Pressure Position [Right Arm] Pulse Oximetry 97 95 93 Oxygen Delivery Method Sepsis Recent Fever Within 48 Hours Sepsis New/Unexplained Change in Mental Status Sepsis Action Taken by Nursing 08/05/23 17:30 08/05/23 17:40 08/05/23 17:50 Temperature Temperature Source Pulse Rate 97 H 103 H 104 H Pulse Rate [Apical] Pulse Rate from SpO2 Sensor 101 H 100 H 103 H Respiratory Rate 21 20 24 Blood Pressure Blood Pressure [Right Arm] Blood Pressure Mean Blood Pressure Mean [Right Arm] Blood Pressure Position Blood Pressure Position [Right Arm] Pulse Oximetry 98 90 97 Oxygen Delivery Method Sepsis Recent Fever Within 48 Hours Sepsis New/Unexplained Change in Mental Status Sepsis Action Taken by Nursing 08/05/23 18:00 08/05/23 18:10 08/05/23 18:20 Temperature Temperature Source Pulse Rate 101 H 103 H 109 H Pulse Rate [Apical] Pulse Rate from SpO2 Sensor 99 H 102 H Respiratory Rate 19 21 20 Blood Pressure Blood Pressure [Right Arm] Blood Pressure Mean Blood Pressure Mean [Right Arm] Blood Pressure Position Blood Pressure Position [Right Arm] Pulse Oximetry 95 94 Oxygen Delivery Method Sepsis Recent Fever Within 48 Hours Sepsis New/Unexplained Change in Mental Status Sepsis Action Taken by Nursing 08/05/23 18:30 08/05/23 18:40 08/05/23 18:50 Temperature Temperature Source Pulse Rate 107 H 108 H 108 H Pulse Rate [Apical] Pulse Rate from SpO2 Sensor Respiratory Rate 24 17 23 Blood Pressure Blood Pressure [Right Arm] Blood Pressure Mean Blood Pressure Mean [Right Arm] Blood Pressure Position Blood Pressure Position [Right Arm] Pulse Oximetry Oxygen Delivery Method Sepsis Recent Fever Within 48 Hours Sepsis New/Unexplained Change in Mental Status Sepsis Action Taken by Nursing 08/05/23 19:00 08/05/23 19:10 08/05/23 19:20 Temperature Temperature Source Pulse Rate 108 H 111 H 108 H Pulse Rate [Apical] Pulse Rate from SpO2 Sensor Respiratory Rate 23 20 24 Blood Pressure Blood Pressure [Right Arm] Blood Pressure Mean Blood Pressure Mean [Right Arm] Blood Pressure Position Blood Pressure Position [Right Arm] Pulse Oximetry Oxygen Delivery Method Sepsis Recent Fever Within 48 Hours Sepsis New/Unexplained Change in Mental Status Sepsis Action Taken by Nursing 08/05/23 19:30 08/05/23 19:40 08/05/23 19:50 Temperature Temperature Source Pulse Rate 104 H 103 H 104 H Pulse Rate [Apical] Pulse Rate from SpO2 Sensor Respiratory Rate 23 21 21 Blood Pressure Blood Pressure [Right Arm] Blood Pressure Mean Blood Pressure Mean [Right Arm] Blood Pressure Position Blood Pressure Position [Right Arm] Pulse Oximetry Oxygen Delivery Method Sepsis Recent Fever Within 48 Hours Sepsis New/Unexplained Change in Mental Status Sepsis Action Taken by Nursing 08/05/23 20:00 08/05/23 20:10 08/05/23 20:20 Temperature Temperature Source Pulse Rate 100 H 96 H 100 H Pulse Rate [Apical] Pulse Rate from SpO2 Sensor Respiratory Rate 24 23 21 Blood Pressure Blood Pressure [Right Arm] Blood Pressure Mean Blood Pressure Mean [Right Arm] Blood Pressure Position Blood Pressure Position [Right Arm] Pulse Oximetry Oxygen Delivery Method Sepsis Recent Fever Within 48 Hours Sepsis New/Unexplained Change in Mental Status Sepsis Action Taken by Nursing 08/05/23 20:30 08/05/23 20:40 08/05/23 20:50 Temperature Temperature Source Pulse Rate 119 H 102 H 100 H Pulse Rate [Apical] Pulse Rate from SpO2 Sensor 101 H 102 H Respiratory Rate 22 21 17 Blood Pressure Blood Pressure [Right Arm] Blood Pressure Mean Blood Pressure Mean [Right Arm] Blood Pressure Position Blood Pressure Position [Right Arm] Pulse Oximetry 98 96 Oxygen Delivery Method Sepsis Recent Fever Within 48 Hours Sepsis New/Unexplained Change in Mental Status Sepsis Action Taken by Nursing 08/05/23 21:00 08/05/23 21:10 Temperature Temperature Source Pulse Rate 102 H 99 H Pulse Rate [Apical] Pulse Rate from SpO2 Sensor 102 H 96 H Respiratory Rate 20 21 Blood Pressure Blood Pressure [Right Arm] Blood Pressure Mean Blood Pressure Mean [Right Arm] Blood Pressure Position Blood Pressure Position [Right Arm] Pulse Oximetry 97 96 Oxygen Delivery Method Sepsis Recent Fever Within 48 Hours Sepsis New/Unexplained Change in Mental Status Sepsis Action Taken by Nursing Physical Exam HENT: Exam performed. - Head: Left periorbital ecchymosis. - Right Ear: External ear normal. No mastoid erythema - Left Ear: External ear normal. No mastoid erythema EYES: Conjunctivae and EOM are normal. Pupils are equal, round, and reactive to light. Right eye exhibits no discharge. Left eye exhibits no discharge. No scleral icterus. NECK: Normal range of motion. Neck supple. No JVD present. No spinous process tenderness present. No tracheal deviation and normal range of motion present. CV: Normal rate, irregular rhythm, normal heart sounds and intact distal pulses. There is no peripheral edema. Palpable radial pulses bue. PULM/CHEST: Effort normal and breath sounds normal. No respiratory distress. No stridor. He has no wheezes. He has no rales. - Chest Wall: He exhibits no tenderness. No crepitus bilaterally. ABD: The abdomen is soft.There is no tenderness. There is no rebound, no guarding. MUSC/SKEL: Pelvis stable. No pain on palpation of the C, T, or L-spine. NEURO: Motor and sensation grossly intact. SKIN: Abrasion over the lateral left elbow. Course Course 1412: The patient was evaluated in room C9. A complete history and physical exam was performed Cardiac monitoring: An order was placed for continuous cardiac monitoring. The monitor shows a rate of 100 with atrial fibrilation rhythm interpreted by me 1705: Vital signs stable. Labs show CK greater than 8000. Gentle hydration will be given to the patient. CT of the C-spine dictation stated there was a skull fracture however the CT of the head stated there is no skull fracture. Contacted radiology Dr. Rm who did review the CT of the head and there is no skull fracture. 1756: Vital signs stable. CT of the face shows nondepressed left orbital floor fracture and fracture involving the medial lateral cain of the left orbit comminuted fractures of left anterior and posterior cain of the left maxillary antrum with layering of blood products in the sinus likely fracture of the left frontal process of the maxilla. Extraocular movements are intact. Discussed the case with Dr. Rivera. I explained to him that the patient will need to be admitted for the rhabdomyolysis and the recurrent falls. He states that he can evaluate the patient tomorrow if surgery is needed. His information was texted via the [employer] system to him. Patient will be admitted to the [facility] team. Administered Medications Sodium Chloride (Nss) 500 mls @ 125 mls/hr IV .Q4H NALINI Stop: 09/04/23 15:14 Last Admin: 08/05/23 16:52 Dose: 125 mls/hr Documented By: Discontinued Medications Diphtheria/Pertussis/Tetanus Vacc (Diphtheria/Tetanus/Pertussis Vaccine (Tdap, Age 7+Yrs) 0.5ml Syr/Vl) 0.5 ml IM .ONCE ONE Stop: 08/05/23 14:39 Last Admin: 08/05/23 14:47 Dose: 0.5 ml Documented By: Sodium Chloride (Nss) 500 mls @ 999 mls/hr IV .Q31M ONE Stop: 08/05/23 15:39 Last Infusion: 08/05/23 16:58 Dose: 0 mls/hr Documented By: Admin: 08/05/23 16:19 Dose: 999 mls/hr Documented By: BERT Ioversol (Optiray 320 100ml) 90 ml IV ONCE ONE Stop: 08/05/23 16:00 Last Admin: 08/05/23 15:59 Dose: 90 ml Documented By: JORY Medical Decision Making Laboratory Data Attestation: I reviewed the patient's lab results. 08/05/23 14:25 08/05/23 14:25 Lab Results 08/05/23 08/05/23 08/05/23 Range/Units 14:25 14:25 14:25 WBC 5.47 (4.8-10.8) K/ul RBC 5.24 (4.70-6.10) M/uL Hgb 14.6 (14.0-18.0) g/dl POC Hgb (14.0-18.0) g/dl Hct 43.4 (42.0-52.0) % POC Hct (42-52) % MCV 82.8 (80.0-100.0) fL MCH 27.9 (25.0-34.0) pg MCHC 33.6 (32.0-36.0) g/dL RDW Std Deviation 58.4 H (36.4-46.3) fL RDW Coeff of Ana 19.9 H (11.5-14.5) % Plt Count 219 (130-400) K/uL MPV 9.5 (9.4-12.4) fL Immature Gran % (Auto) 0.4 % Neut % (Auto) 63.0 % Lymph % (Auto) 7.3 % Pratt % (Auto) 21.6 % Eos % (Auto) 6.8 % Baso % (Auto) 0.9 % Neut # (Auto) 3.45 (1.40-6.50) K/uL Lymph # (Auto) 0.40 L (1.20-3.40) K/uL Pratt # (Auto) 1.18 H (0.11-0.59) K/uL Eos # (Auto) 0.37 (0.00-0.50) K/uL Baso # (Auto) 0.05 (0.00-0.20) K/uL Immature Gran # (Auto) 0.02 (0.01-0.20) K/uL PT 10.6 (9.0-12.0) Seconds INR 1.0 (0.9-1.1) APTT 26.7 (21.0-31.0) Seconds PTT Ratio 0.9 POC Sodium (135-144) mmol/L Sodium 139 (136-145) mmol/L POC Potassium (3.3-5.0) mmol/L Potassium 4.2 (3.5-5.1) mmol/L POC Chloride (101-112) mmol/L Chloride 105 (98-107) mmol/L Carbon Dioxide 24 (21-32) mmol/L POC Total CO2 (24-31) mmol/L Anion Gap 10 (3-11) POC Anion Gap (16-25) mmol/L POC BUN (7-18) mg/dl BUN 23 (6-23) mg/dl Creatinine 1.44 H (0.6-1.4) mg/dl POC Creatinine (0.6-1.3) mg/dl Est Cr Clr Drug Dosing 31.7 ml/min Est GFR ( Amer) 49.5 ml/min Est GFR (Non-Af Amer) 42.7 ml/min BUN/Creatinine Ratio 16.0 (10-20) Glucose 136 H (70-99(Fasting)) mg/dl POC Glucose (other) (70-99) mg/dl Calcium 10.0 (8.6-10.3) mg/dl POC Ioniz Calcium Namita (1.12-1.32) mmol/l Total Creatine Kinase 1280 H (30-223) U/L Troponin I High Sens 36.4 H (0-20) pg/ml Lipase 35 (11-82) U/L 08/05/23 08/05/23 Range/Units 14:33 16:19 WBC (4.8-10.8) K/ul RBC (4.70-6.10) M/uL Hgb (14.0-18.0) g/dl POC Hgb 15.3 (14.0-18.0) g/dl Hct (42.0-52.0) % POC Hct 45 (42-52) % MCV (80.0-100.0) fL MCH (25.0-34.0) pg MCHC (32.0-36.0) g/dL RDW Std Deviation (36.4-46.3) fL RDW Coeff of Ana (11.5-14.5) % Plt Count (130-400) K/uL MPV (9.4-12.4) fL Immature Gran % (Auto) % Neut % (Auto) % Lymph % (Auto) % Pratt % (Auto) % Eos % (Auto) % Baso % (Auto) % Neut # (Auto) (1.40-6.50) K/uL Lymph # (Auto) (1.20-3.40) K/uL Pratt # (Auto) (0.11-0.59) K/uL Eos # (Auto) (0.00-0.50) K/uL Baso # (Auto) (0.00-0.20) K/uL Immature Gran # (Auto) (0.01-0.20) K/uL PT (9.0-12.0) Seconds INR (0.9-1.1) APTT (21.0-31.0) Seconds PTT Ratio POC Sodium 142 (135-144) mmol/L Sodium (136-145) mmol/L POC Potassium 4.2 (3.3-5.0) mmol/L Potassium (3.5-5.1) mmol/L POC Chloride 106 (101-112) mmol/L Chloride (98-107) mmol/L Carbon Dioxide (21-32) mmol/L POC Total CO2 24 (24-31) mmol/L Anion Gap (3-11) POC Anion Gap 17.0 (16-25) mmol/L POC BUN 24 H (7-18) mg/dl BUN (6-23) mg/dl Creatinine (0.6-1.4) mg/dl POC Creatinine 1.5 H (0.6-1.3) mg/dl Est Cr Clr Drug Dosing ml/min Est GFR ( Amer) ml/min Est GFR (Non-Af Amer) ml/min BUN/Creatinine Ratio (10-20) Glucose (70-99(Fasting)) mg/dl POC Glucose (other) 137 H (70-99) mg/dl Calcium (8.6-10.3) mg/dl POC Ioniz Calcium Namita 1.21 (1.12-1.32) mmol/l Total Creatine Kinase (30-223) U/L Troponin I High Sens 30.2 H (0-20) pg/ml Lipase (11-82) U/L Imaging Data Radiologist's Impression: Abdomen/Pelvis CT 08/05/23 14:21 CT SCAN OF THE ABDOMEN AND PELVIS WITH IV CONTRAST CLINICAL HISTORY: Fall. COMPARISON STUDY: Abdominal ultrasound dated 07/16/2011. PET/CT dated 03/17/2023. TECHNIQUE: Following the IV administration of 90 cc of Optiray 320, CT scan of the abdomen and pelvis is performed from the lung bases to the proximal femora. Images are reviewed in the axial, sagittal, and coronal planes. IV contrast was administered without complication. A dose lowering technique was utilized adhering to the principles of ALARA. There is streak artifact from the arms which could not be elevated above the abdomen. FINDINGS: Lung bases: The heart is normal in size and without pericardial effusion. There is a 3.3 x 2.1 cm spiculated lesion at the right lung base seen on image #21. This may show central necrosis. Emphysematous changes observed. There is bibasilar scarring/atelectasis. No airspace consolidation typical for pneumonia or pleural effusion is identified. There is no basilar pneumothorax. A small hiatal hernia is noted. Liver: The contrast-enhanced liver is normal in size, contour, and attenuation. There is no intrahepatic biliary ductal dilatation. The hepatic veins and portal veins are patent. Scattered hepatic cysts measure up to 1.9 cm. Gallbladder: The gallbladder is distended and contains stones. There is no CT evidence of acute cholecystitis. Spleen: Normal in size and attenuation. Pancreas: Unremarkable. Adrenal glands: Unremarkable. Kidneys: The contrast enhanced kidneys demonstrate mild cortical atrophy and are without hydronephrosis. The kidneys enhance symmetrically. Bilateral renal cysts measure up to 4.7 cm. Additional subcentimeter cortical hypodensities also likely represent cysts but are too small for definitive characterization. Corti octavio scarring is seen in the left lower pole. Abdominal vasculature: There is moderate to advanced atherosclerotic calcification and ectasia of the abdominal aorta. Bowel: There is mild colonic diverticulosis without CT evidence of acute diverticulitis. No bowel obstruction is seen. Duodenal diverticula are noted. The appendix is well-visualized and normal. Peritoneum: There is no intraperitoneal free air or abdominal ascites. Lymphadenopathy: None. Pelvic viscera: The prostate gland is diminutive and heterogeneous. The bladder is normal as visualized. Skeletal structures: The skeletal structures are osteopenic. The lumbosacral spine, bony pelvis, and proximal femora appear intact. There is mild to moderate lumbosacral spondylosis. No lytic or blastic lesions are seen. IMPRESSION: 1. There is no evidence of solid organ injury in the abdomen or pelvis. 2. Emphysema and a spiculated right lower lobe mass lesion are again noted. A bronchogenic neoplasm remains the diagnosis of exclusion. 3. Cholelithiasis. 4. Additional findings as above. ACT 112: Positive. There are findings on this exam that require communication between the performing entity and the patient following Patient Test Result Information Act ([place] Act 112) guidelines. Electronically signed by: Harsh Rm M.D. 08/05/2023 4:[address] 08/05/23 14:21 CT cervical spine wo con CLINICAL HISTORY: fall on eliquis TECHNIQUE: Multidetector row helical CT of the cervical spine was performed without administration of intravenous contrast. Coronal and sagittal reformation s were obtained. Automated dose lowering techniques and/or adjustment according to patient size were utilized for this exam. Comparison: None available at the time of this dictation. FINDINGS: No acute fractures or subluxations are identified. Degenerative changes are seen in the visualized spine. There is calcification of the transverse ligament. The alignment is normal. Partial visualization of fractures of the left maxillary sinus cain and soft tissue density in the sinus. Emphysema is seen in the visualized upper lungs. IMPRESSION: 1. Degenerative changes are seen in the cervical spine without evidence of acute fracture. 2. Please see CT cervical spine for findings of skull fractures. ACT 112: Negative or not required by law. Electronically signed by: Rico Enriquez M.D. 08/05/2023 4:26 PM Chest X-Ray 08/05/23 14:21 XR chest 1V portable HISTORY: 88 years-old Male Chest pain, nonspecific acute chest pain status post fall COMPARISON: 03/17/2023 TECHNIQUE: AP view of the chest FINDINGS: Cardiomediastinal and hilar silhouettes are within normal limits. Chronic interstitial coarsening. Ill-defined nodule within the basal right lower lobe previously measured at 4 cm. Emphysema. Degenerative changes of the shoulders and spine. IMPRESSION: 1. Emphysema with chronic interstitial coarsening. 2. Right lower lobe lesion redemonstrated, better characterized on the comparison PET/CT. ACT 112: Negative or not required by law. The above report was generated using voice recognition software. It may contain grammatical, syntax or spelling errors. Electronically signed by: Rodney Morataya M.D. 08/05/2023 3:[address] 08/05/23 14:21 CT SCAN OF THE FACIAL BONES WITHOUT IV CONTRAST CLINICAL HISTORY: Fall. COMPARISON STUDY: Orbital radiographs dated 12/20/2020. TECHNIQUE: High-resolution CT scan of the facial bones is performed. Images are reviewed in the axial, sagittal, and coronal planes. IV contrast was not administered for this examination. A dose lowering technique was utilized adhering to the principles of ALARA. FINDINGS: The skeletal structures are osteopenia. There is a nondepressed fracture of the left orbital floor. Fracture also involves the medial and lateral cain of the left orbit. There are also comminuted fractures involving the anterior and posterior cain of the left maxillary sinus with depressed fragments. The right orbit is intact. Orbital contents are within normal limits noting bilateral ocular lens implant. There is likely fracture of the left frontal process of the maxilla. No depressed nasal bone fracture is seen. The zygomatic arches and pterygoid plates are preserved. The mandible is intact. The patient is edentulous. Advanced degenerative change is noted at the temporomandibular joints. There are layering blood products within the left maxillary antrum. There is mild mucosal thickening within the frontal sinuses. The remaining paranasal sinuses are clear. There is trace left mastoid effusion. The right mastoid air cells are well pneumatized. The visualized calvarium and upper cervical spine are maintained. Partially imaged brain parenchyma is within normal limits noting age-related involutional change. Calcified sialoliths are seen within the parotid glands. IMPRESSION: 1. Nondepressed left orbital floor fracture. Fracture also involves the medial and lateral cain of the left orbit. 2. There are comminuted fractures to the anterior and posterior cain of the left maxillary antrum, with layering blood products within the sinus. 3. There is likely fracture of the left frontal process of the maxilla. 4. The right orbit is intact and orbital contents are normal as imaged. ACT 112: Negative or not required by law. Electronically signed by: Harsh Rm M.D. 08/05/2023 4:[address] 08/05/23 14:21 CT head/brain wo con CLINICAL HISTORY: fall on eliquis Technique: Contiguous axial CT images of the head were acquired from the base of the skull to the vertex without intravenous contrast administration. Images were viewed in brain, subdural and bone windows. Automated dose lowering techniques and/or adjustment according to patient size were utilized for this exam. Comparison: Comparison is made to CT head 12/19/2020 Findings: Areas of decreased attenuation are present in the periventricular and subcortical white matter bilaterally consistent with small vessel ischemic disease. Generalized cerebral atrophy with commensurate enlargement of the ventricles, sulci, and cisterns is also present. There is no acute intracranial hemorrhage or evidence of acute territorial infarction. No shift of the midline structures, mass effect, or extra-axial abnormalities are shown. Atherosclerotic calcifications are present in the intracranial segments of the internal carotid arteries. Imaged portions of the paranasal sinuses and mastoid air cells are clear. The orbits appear normal. No calvarial fracture is seen. Fractures of the left maxillary sinus cain partially visualized. Subcutaneous emphysema and swelling are seen in the left maxillary soft tissues. Impression: No acute intracranial hemorrhage, no evidence of acute territorial infarction or other acute intracranial disease process. Please see CT facial bones for detailed findings of left-sided facial fractures. ACT 112: Negative or not required by law. Electronically signed by: Rico Enriquez M.D. 08/05/2023 4:17 PM Pelvis X-Ray 08/05/23 14:21 XR pelvis 1-2V routine CLINICAL HISTORY: fall on eliquis TECHNIQUE: A single frontal view of the pelvis was obtained. Comparison: None available at the time of this dictation. FINDINGS: There is no evidence of an acute fracture. Degenerative changes are seen in the hip joints and lumbar spine. Vascular calcifications are noted. IMPRESSION: Degenerative changes without evidence of acute abnormality. ACT 112: Negative or not required by law. Electronically signed by: Rico Enriquez M.D. 08/05/2023 3:06 PM ECG Data Attestation: I personally reviewed and interpreted this ECG as follows: Rate (beats per minute): 96 Rhythm: + atrial fibrillation ECG Intervals/blocks: + Right Bundle branch block ECG ST segments: + Normal ST segments Comparison ECG Date: from (December 2020) Change: no significant change Additional Comments: QRS 136 QTc 525. [facility] Narrative 1412: The patient was evaluated in room C9. A complete history and physical exam was performed Cardiac monitoring: An order was placed for continuous cardiac monitoring. The monitor shows a rate of 100 with atrial fibrilation rhythm interpreted by me 1705: Vital signs stable. Labs show CK greater than 8000. Gentle hydration will be given to the patient. CT of the C-spine dictation stated there was a skull fracture however the CT of the head stated there is no skull fracture. Contacted radiology Dr. Rm who did review the CT of the head and there is no skull fracture. 1756: Vital signs stable. CT of the face shows nondepressed left orbital floor fracture and fracture involving the medial lateral cain of the left orbit comminuted fractures of left anterior and posterior cain of the left maxillary antrum with layering of blood products in the sinus likely fracture of the left frontal process of the maxilla. Extraocular movements are intact. Discussed the case with Dr. Rivera. I explained to him that the patient will need to be admitted for the rhabdomyolysis and the recurrent falls. He states that he can evaluate the patient tomorrow if surgery is needed. His information was texted via the [employer] text system to him. Patient will be admitted to the [facility] hospitalist team. Impression & Plan Recurrent falls, Left orbit fracture, Closed left maxillary fracture, Rhabdomyolysis Discharge Plan Visit Data Chief Complaint: Fall Stated Complaint: FALL ED Provider: Titi Torres Discharge Problem: Recurrent falls, Left orbit fracture, Closed left maxillary fracture, Rhabdomyolysis Patient Disposition: Admitted As Inpatient Forms Stand Alone Forms: My [facility] Prescriptions Prescriptions: No Action [id number] Tablet 1 tab PO DAILY acetaminophen 325 mg capsule 650 mg PO QID PRN (Reason: Fever Or Pain) ergocalciferol (vitamin D2) 50 mcg (2,000 unit) tablet 50 mcg PO DAILY atorvastatin 40 mg tablet 40 mg PO DAILY ipratropium bromide 42 mcg (0.06 %) spray,non-aerosol 2 spray intranasal QID PRN (Reason: Shortness Of Breath Or Wheezing) Rx Instructions: administer into each nostril umeclidinium-vilanterol 62.5-25 mcg/actuation blister with device 1 inh inhalation DAILY albuterol sulfate [Ventolin HFA] 90 mcg/actuation HFA aerosol inhaler 2 puff inhalation Q4H PRN (Reason: Shortness Of Breath Or Wheezing) nitroglycerin [Nitrostat] 0.4 mg Tablet, Sublingual 0.4 mg sublingual UD PRN (Reason: Chest Pain) cinnamon bark [Cinnamon] 500 mg Capsule 500 mg PO MOWEFR Rx Instructions: take mowefr aspirin 81 mg tablet,delayed release (DR/EC) 81 mg PO DAILY Qty: 21 0RF metoprolol succinate 25 mg tablet extended release 24 hr 25 mg PO DAILY Eliquis 2.5 mg tablet 2.5 mg PO HS Patient Comments: supposed to take 2.5mg BID but takes is only qHS lisinopril 2.5 mg tablet 2.5 mg PO DAILY Referrals Referrals: Tip Dill MD [Primary Care Provider] -
[2023-08-05 14:45] LABS: Basophils # (auto) 0.05 K/uL (0.00-0.20); Basophils % (auto) 0.9 %; Eosinophils # (auto) 0.37 K/uL (0.00-0.50); Eosinophils % (auto) 6.8 %; Hematocrit (blood only) 43.4 % (42.0-52.0); Hemoglobin 14.6 g/dl (14.0-18.0); Immature Granulocytes # (auto) 0.02 K/uL (0.01-0.20); Immature Granulocytes % (auto) 0.4 %; Lymphocytes % (auto) 7.3 %; Mean Corpuscular Hemoglobin 27.9 pg (25.0-34.0); Mean Corpuscular Hgb Conc 33.6 g/dL (32.0-36.0); Mean Corpuscular Volume 82.8 fL (80.0-100.0); Mean Platelet Volume 9.5 fL (9.4-12.4); Monocytes # (auto) 1.18 K/uL (0.11-0.59); Monocytes % (auto) 21.6 %; Neutrophils # (auto) 3.45 K/uL (1.40-6.50); Platelet Count 219 K/uL (130-400); RDW Coefficient of Variation 19.9 % (11.5-14.5); RDW Standard Deviation 58.4 fL (36.4-46.3); Red Blood Count 5.24 M/uL (4.70-6.10); White Blood Count 5.47 K/ul (4.8-10.8)
[2023-08-05 14:50] LABS: iSTAT Creatinine 1.5 mg/dl (0.6-1.3); iSTAT Hemoglobin 15.3 g/dl (14.0-18.0); iSTAT Ionized Calcium 1.21 mmol/l (1.12-1.32); iSTAT Potassium 4.2 mmol/L (3.3-5.0)
[2023-08-05 15:04] LABS: Creatinine Clr Calc Pharmacy 31.7 ml/min; Est GFR (African American) 49.5 ml/min; Est GFR (Non-African American) 42.7 ml/min; Potassium 4.2 mmol/L (3.5-5.1)
--- NOTE | 2023-08-05 15:07 | XRay Report ---
XR pelvis 1-2V routine CLINICAL HISTORY: fall on eliquis TECHNIQUE: A single frontal view of the pelvis was obtained. Comparison: None available at the time of this dictation. FINDINGS: There is no evidence of an acute fracture. Degenerative changes are seen in the hip joints and lumbar spine. Vascular calcifications are noted. IMPRESSION: Degenerative changes without evidence of acute abnormality. ACT 112: Negative or not required by law. Electronically signed by: Rico Enriquez M.D. 08/05/2023 3:06 PM
[2023-08-05] MEDS ORDERED: SODIUM CHLORIDE 0.9% 500 ML IV ONE (15:09)
[2023-08-05 15:11] LABS: Troponin I High Sensitivity 36.4 pg/ml (0-20)
[2023-08-05 15:17] LABS: Partial Thromboplastin Ratio 0.9; Partial Thromboplastin Time 26.7 Seconds (21.0-31.0); Prothrombin Time 10.6 Seconds (9.0-12.0)
--- NOTE | 2023-08-05 15:18 | XRay Report ---
XR chest 1V portable HISTORY: 88 years-old Male Chest pain, nonspecific acute chest pain status post fall COMPARISON: 03/17/2023 TECHNIQUE: AP view of the chest FINDINGS: Cardiomediastinal and hilar silhouettes are within normal limits. Chronic interstitial coarsening. Il l-defined nodule within the basal right lower lobe previously measured at 4 cm. Emphysema. Degenerati ve changes of the shoulders and spine. IMPRESSION: 1. Emphysema with chronic interstitial coarsening. 2. Right lower lobe lesion redemonstrated, better characterized on the comparison PET/CT. ACT 112: Negative or not required by law. The above report was generated using voice recognition software. It may contain grammatical, syntax o r spelling errors. Electronically signed by: Rodney Morataya M.D. 08/05/2023 3:17 PM
[2023-08-05] MEDS ORDERED: OPTIRAY 320 100ml IV ONE (15:59)
--- NOTE | 2023-08-05 16:18 | CT Scan Report ---
CT head/brain wo con CLINICAL HISTORY: fall on eliquis Technique: Contiguous axial CT images of the head were acquired from the base of the skull to the gerald randy without intravenous contrast administration. Images were viewed in brain, subdural and bone [facility]. Automated dose lowering techniques and/or adjustment according to patient size were utilized for this exam. Comparison: Comparison is made to CT head 12/19/2020 Findings: Areas of decreased attenuation are present in the periventricular and subcortical white matter bilate rally consistent with small vessel ischemic disease. Generalized cerebral atrophy with commensurate e nlargement of the ventricles, sulci, and cisterns is also present. There is no acute intracranial hem orrhage or evidence of acute territorial infarction. No shift of the midline structures, mass effect, or extra-axial abnormalities are shown. Atherosclerotic calcifications are present in the intracran ial segments of the internal carotid arteries. Imaged portions of the paranasal sinuses and mastoid air cells are clear. The orbits appear normal. No calvarial fracture is seen. Fractures of the left maxillary sinus cain partially visualized. Subc utaneous emphysema and swelling are seen in the left maxillary soft tissues. Impression: No acute intracranial hemorrhage, no evidence of acute territorial infarction or other acute intracra nial disease process. Please see CT facial bones for detailed findings of left-sided facial fractures . ACT 112: Negative or not required by law. Electronically signed by: Rico Enriquez M.D. 08/05/2023 4:17 PM
--- NOTE | 2023-08-05 16:26 | CT Scan Report ---
CT SCAN OF THE ABDOMEN AND PELVIS WITH IV CONTRAST CLINICAL HISTORY: Fall. COMPARISON STUDY: Abdominal ultrasound dated 07/16/2011. PET/CT dated 03/17/2023. TECHNIQUE: Following the IV administration of 90 cc of Optiray 320, CT scan of the abdomen and pelvi s is performed from the lung bases to the proximal femora. Images are reviewed in the axial, sagittal , and coronal planes. IV contrast was administered without complication. A dose lowering technique wa s utilized adhering to the principles of ALARA. There is streak artifact from the arms which could no t be elevated above the abdomen. FINDINGS: Lung bases: The heart is normal in size and without pericardial effusion. There is a 3.3 x 2.1 cm spi culated lesion at the right lung base seen on image #21. This may show central necrosis. Emphysematou s changes observed. There is bibasilar scarring/atelectasis. No airspace consolidation typical for pn eumonia or pleural effusion is identified. There is no basilar pneumothorax. A small hiatal hernia is noted. Liver: The contrast-enhanced liver is normal in size, contour, and attenuation. There is no intrahepa tic biliary ductal dilatation. The hepatic veins and portal veins are patent. Scattered hepatic cysts measure up to 1.9 cm. Gallbladder: The gallbladder is distended and contains stones. There is no CT evidence of acute ellie cystitis. Spleen: Normal in size and attenuation. Pancreas: Unremarkable. Adrenal glands: Unremarkable. Kidneys: The contrast enhanced kidneys demonstrate mild cortical atrophy and are without hydronephros is. The kidneys enhance symmetrically. Bilateral renal cysts measure up to 4.7 cm. Additional subcent imeter cortical hypodensities also likely represent cysts but are too small for definitive characteri zation. Cortical scarring is seen in the left lower pole. Abdominal vasculature: There is moderate to advanced atherosclerotic calcification and ectasia of the abdominal aorta. Bowel: There is mild colonic diverticulosis without CT evidence of acute diverticulitis. No bowel obs truction is seen. Duodenal diverticula are noted. The appendix is well-visualized and normal. Peritoneum: There is no intraperitoneal free air or abdominal ascites. Lymphadenopathy: None. Pelvic viscera: The prostate gland is diminutive and heterogeneous. The bladder is normal as visualiz ed. Skeletal structures: The skeletal structures are osteopenic. The lumbosacral spine, bony pelvis, and proximal femora appear intact. There is mild to moderate lumbosacral spondylosis. No lytic or blastic lesions are seen. IMPRESSION: 1. There is no evidence of solid organ injury in the abdomen or pelvis. 2. Emphysema and a spiculated right lower lobe mass lesion are again noted. A bronchogenic neoplasm r emains the diagnosis of exclusion. 3. Cholelithiasis. 4. Additional findings as above. ACT 112: Positive. There are findings on this exam that require communication between the performing entity and the patient following Patient Test Result Information Act ([place] Act 112) guidelines. Electronically signed by: Harsh Rm M.D. 08/05/2023 4:25 PM
--- NOTE | 2023-08-05 16:27 | CT Scan Report ---
CT cervical spine wo con CLINICAL HISTORY: fall on eliquis TECHNIQUE: Multidetector row helical CT of the cervical spine was performed without administration of intravenous contrast. Coronal and sagittal reformations were obtained. Automated dose lowering techn iques and/or adjustment according to patient size were utilized for this exam. Comparison: None available at the time of this dictation. FINDINGS: No acute fractures or subluxations are identified. Degenerative changes are seen in the visualized sp ine. There is calcification of the transverse ligament. The alignment is normal. Partial visualizatio n of fractures of the left maxillary sinus cain and soft tissue density in the sinus. Emphysema is s een in the visualized upper lungs. IMPRESSION: 1. Degenerative changes are seen in the cervical spine without evidence of acute fracture. 2. Please see CT cervical spine for findings of skull fractures. ACT 112: Negative or not required by law. Electronically signed by: Rico Enriquez M.D. 08/05/2023 4:26 PM
--- NOTE | 2023-08-05 16:42 | CT Scan Report ---
CT SCAN OF THE FACIAL BONES WITHOUT IV CONTRAST CLINICAL HISTORY: Fall. COMPARISON STUDY: Orbital radiographs dated 12/20/2020. TECHNIQUE: High-resolution CT scan of the facial bones is performed. Images are reviewed in the axia l, sagittal, and coronal planes. IV contrast was not administered for this examination. A dose lower ing technique was utilized adhering to the principles of ALARA. FINDINGS: The skeletal structures are osteopenia. There is a nondepressed fracture of the left orbita l floor. Fracture also involves the medial and lateral cain of the left orbit. There are also commin uted fractures involving the anterior and posterior cain of the left maxillary sinus with depressed fragments. The right orbit is intact. Orbital contents are within normal limits noting bilateral ocul ar lens implant. There is likely fracture of the left frontal process of the maxilla. No depressed na tahir bone fracture is seen. The zygomatic arches and pterygoid plates are preserved. The mandible is i ntact. The patient is edentulous. Advanced degenerative change is noted at the temporomandibular join ts. There are layering blood products within the left maxillary antrum. There is mild mucosal thicken ing within the frontal sinuses. The remaining paranasal sinuses are clear. There is trace left mastoi d effusion. The right mastoid air cells are well pneumatized. The visualized calvarium and upper cerv ical spine are maintained. Partially imaged brain parenchyma is within normal limits noting age-relat ed involutional change. Calcified sialoliths are seen within the parotid glands. IMPRESSION: 1. Nondepressed left orbital floor fracture. Fracture also involves the medial and lateral cain of t he left orbit. 2. There are comminuted fractures to the anterior and posterior cain of the left maxillary antrum, w ith layering blood products within the sinus. 3. There is likely fracture of the left frontal process of the maxilla. 4. The right orbit is intact and orbital contents are normal as imaged. ACT 112: Negative or not required by law. Electronically signed by: Harsh Rm M.D. 08/05/2023 4:40 PM
[2023-08-05] MEDS: SODIUM CHLORIDE 0.9% 500 ML IV SCH ×2 (16:52→22:15)
[2023-08-05 17:12] LABS: Troponin I High Sensitivity 30.2 pg/ml (0-20)
--- NOTE | 2023-08-05 19:25 | History & Physical Report ---
Date of Service August 05, 2023 Assessment & Plan (1) Recurrent falls: Plan: PT/OT to evaluate. 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 (2) Left orbit fracture: Plan: Closed fracture, nondepressed on films without evidence of visual involvement/globe rupture. Consult OMFS. Supportive care. (3) Closed left maxillary fracture: Plan: Closed traumatic fracture. Soft diet. Prophylactic augmentin. Consult OMFS. (4) Rhabdomyolysis: Plan: elevated CK with evidence of worsening renal function. Cont IVF overnight. Trend CK and BMP in am. (5) Right shoulder injury: Plan: right shoulder pain and new restricted ROM of shoulder joint. Xray ordered. Tylenol PRN. (6) Acute kidney injury superimposed on chronic kidney disease: Plan: slightly elevated creatinine to 1.44 with baseline around 1.2. Repeat after hydration efforts overnight. (7) Non-small cell carcinoma of lung: Plan: Follows with Dr. Olguin of Oncology. Just finished several weeks of radiation to lung. No plans for chemotherapy per recent outpatient note. Follow-up with Oncology. (8) Chronic anticoagulation: Plan: After a prior stroke, patient was on DAPT. However, in March 2023 PAF was noted and cardiology started him on apixaban 2.5mg PO BID with [id number], stopping his plavix. (9) Ischemic heart disease due to coronary artery obstruction: Plan: h/o ischemic heart disease s/p inferior wall myocardial infarction. PCI stent of totally occluded RCA(2002). Chronic, stable. Cont medical management less aspirin in setting of head trauma for the time being. DVT proph- SCDs, ambulation DNR/DNI as confirmed with the patient at time of admission. Dispo-telemetry monitoring overnight. Pending PT/OT recommendations. I spent a total of 75minutes coordinating, documenting, and providing care for this patient excluding time spent in the performance of separately billed services Daniela Marquez DO [facility] Hospitalist History of Present Illness Chief Complaint: fall Primary Care Provider: Tip Dill MD 88 yo M on ASA and apixaban presents after son found him in bed wtih a bruised eye that was new suggestive of a fall overnight. He has had multiple falls in recent weeks. He reports significant dizziness as a cause of his falls as well as tripping over objects such as his shoes which he did yesterday. I cannot get an understanding of what happened overnight as he is a poor historian and keeps going back to his longstanding dizziness. He states that his head gets warm and then he feels presyncopal so he sits down. He denies any current pain or bleeding. He is not able to flex his right arm forward. He denies any chest pain, sob or other symptoms at this time. He reports self administering medications at home and is able to go through most of them with me tonight accurately. He reports taking apixaban only once daily and last dose was last evening. Aspirin last taken yesterday evening, also. He denies any pain in his eye or face. He does have some chronic visual issues/retinal disease that is being treated by his scow captain which he and children report. He reports no changes in his vision acutely today. I did step out and review with the ER physician that there was an error on the CT c pine reading about skull fractures. There are none. I did review with the patient and family that there are fractures in the left orbit and the left upper jaw area. There is no c-spine fracture, no evidence of solid organ injury on abd/pel CT and no pelvic fracture on xray. Allergies Allergy/AdvReac Type Severity Reaction Status Date / Time cheese Allergy Intermediate Hives Verified 08/05/23 18:29 shellfish derived Allergy Intermediate Hives Verified 08/05/23 18:29 Home Medications Medication Instructions Recorded Confirmed Type cinnamon bark 500 mg capsule 500 mg PO MOWEFR 12/19/20 08/05/23 History (Cinnamon) nitroglycerin 0.4 mg sublingual 0.4 mg sublingual UD PRN Chest Pain 12/19/20 08/05/23 History tablet (Nitrostat) aspirin 81 mg tablet,delayed 81 mg PO DAILY #21 tabs 12/23/20 08/05/23 Rx release acetaminophen 325 mg capsule 650 mg PO QID PRN Fever Or Pain 05/26/23 08/05/23 History albuterol sulfate 90 mcg/actuation 2 puff inhalation Q4H PRN 05/26/23 08/05/23 History aerosol inhaler (Ventolin HFA) Shortness Of Breath Or Wheezing atorvastatin 40 mg tablet 40 mg PO DAILY 05/26/23 08/05/23 History ergocalciferol (vitamin D2) 50 mcg 50 mcg PO DAILY 05/26/23 08/05/23 History (2,000 unit) tablet ipratropium bromide 42 mcg (0.06 2 spray intranasal QID PRN 05/26/23 08/05/23 History %) nasal spray Shortness Of Breath Or Wheezing lorazepam 0.5 mg tablet 0.5 mg PO QID PRN Anxiety 05/26/23 08/05/23 History rvsjlkmtvmzj-kgbghfkn-avzhdx tablet 1 tab PO DAILY 05/26/23 08/05/23 History umeclidinium 62.5 mcg-vilanterol 1 inh inhalation DAILY 05/26/23 08/05/23 History 25 mcg/actuation powdr for inhalation apixaban 2.5 mg tablet (Eliquis) 2.5 mg PO HS 08/05/23 08/05/23 History lisinopril 2.5 mg tablet 2.5 mg PO DAILY 08/05/23 08/05/23 History metoprolol succinate 25 mg 25 mg PO DAILY 08/05/23 08/05/23 History tablet,extended release 24 hr Past Med/Surg History Medical History (Updated 08/05/23 @ 20:20 by Daniela Marquez DO) Acute [place] CAD (coronary artery disease) CKD (chronic kidney disease) stage 3, GFR 30-59 ml/min COPD (chronic obstructive pulmonary disease) Diverticulosis Dyslipidemia Gout H/O: CVA (cerebrovascular accident) HTN (hypertension) Ischemic heart disease due to coronary artery obstruction Kidney stone Osteoarthritis PAD (peripheral artery disease) Protein calorie malnutrition Vitamin D deficiency Surgical History H/O heart artery stent History of bronchoscopy History of inguinal hernia repair History of tonsillectomy and adenoidectomy Family History Sister Cancer Breast Daughter Cancer Ovarian Father Cancer Lung cancer Brother Cancer Pancreatic Social History (Updated 08/05/23 @ 19:59 by Daniela Marquez DO) Smoking Status: Former smoker Tobacco Type: Cigarettes packs per day: 1.5; Smoking End Date: quit 2002; Second Hand Exposure: No; Do You Dip or Chew Tobacco: No; Hx Alcohol Use: No Hx Substance Use: No Preferred Language: Guyanese Communication Ability: Effective Visual Impairment: Partially Limited Hearing Ability: Use of Hearing Aid Bulk Filler Required: No Beliefs That Will Affect Care: None Current Living Situation: Alone current occupational status: retired 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; 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 [employer] Feels Safe at Home: Yes Diet: regular during the past year weight has: decreased > 10 lbs Assistive Devices: Walker Physical Exam Physical Exam: CONSTITUTIONAL: elderly, thin, vitals as above, generally well-appearing, NAD EYES: EOMI bilaterally, PERRL, normal conjunctivae, no scleral icterus ENT: external ear and nose normal, oropharynx clear, no TM abnormality NECK: trachea midline RESPIRATORY: clear to auscultation bilaterally, no crackles, rales or wheezes, normal respiratory effort CARDIOVASCULAR: regular rate and rhythm, S1 and 2 heard without murmurs, gallops or rubs, no JVD, no peripheral edema CHEST: inspection of chest was normal GASTROINTESTINAL: soft, nontender, ND, no guarding MUSCULOSKELETAL: strength 5/5 throughout except unable to extend his right arm out in front of him 2/2 pain. Right arm biceps 5/5 and triceps 5/5. Dean Of Men strength intact and equal bilaterally, head is normocephalic, periorbital ecchymosis is noted on the left. SKIN: warm and dry, no rashes or ecchymosis in other areas. NEUROLOGIC: patellar DTRs 2+ bilat. PERRL, EOMI, no facial palsy, no dysarthria. Touch, pain and proprioception normal. CN 2-12 grossly intact, no sensory deficit, normal cognition, normal speech, no tremor PSYCHIATRIC: alert cooperative and oriented to person, place and time. Euthymic mood, makes good eye contact, language grossly intact, recent and remote memory grossly intact. Results & Data Results & Data Vital Signs (Past 12 Hours) Vital Signs Temp Pulse Pulse Resp BP BP Pulse Ox 08/05/23 18:25 106 H 08/05/23 16:56 108 H 28 H 108/84 95 08/05/23 14:19 101 H 08/05/23 14:17 36.7 C 95 H 20 126/80 97 O2 Del Method 08/05/23 18:25 08/05/23 16:56 Room Air 08/05/23 14:19 08/05/23 14:17 Room Air Laboratory Results Short CBC 08/05/23 Range/Units 14:25 WBC 5.47 (4.8-10.8) K/ul Hgb 14.6 (14.0-18.0) g/dl Hct 43.4 (42.0-52.0) % Plt Count 219 (130-400) K/uL BMP 08/05/23 14:25 Sodium 139 Potassium 4.2 Chloride 105 Carbon Dioxide 24 BUN 23 Creatinine 1.44 H Glucose 136 H Calcium 10.0 Cardiac Enzymes 08/05/23 Range/Units 14:25 Total Creatine Kinase 1280 H (30-223) U/L Diagnostic Findings Abdomen/Pelvis CT 08/05/23 14:21 CT SCAN OF THE ABDOMEN AND PELVIS WITH IV CONTRAST CLINICAL HISTORY: Fall. COMPARISON STUDY: Abdominal ultrasound dated 07/16/2011. PET/CT dated 03/17/2023. TECHNIQUE: Following the IV administration of 90 cc of Optiray 320, CT scan of the abdomen and pelvis is performed from the lung bases to the proximal femora. Images are reviewed in the axial, sagittal, and coronal planes. IV contrast was administered without complication. A dose lowering technique was utilized adhering to the principles of ALARA. There is streak artifact from the arms which could not be elevated above the abdomen. FINDINGS: Lung bases: The heart is normal in size and without pericardial effusion. There is a 3.3 x 2.1 cm spiculated lesion at the right lung base seen on image #21. This may show central necrosis. Emphysematous changes observed. There is bibasilar scarring/atelectasis. No airspace consolidation typical for pneumonia or pleural effusion is identified. There is no basilar pneumothorax. A small hiatal hernia is noted. Liver: The contrast-enhanced liver is normal in size, contour, and attenuation. There is no intrahepatic biliary ductal dilatation. The hepatic veins and portal veins are patent. Scattered hepatic cysts measure up to 1.9 cm. Gallbladder: The gallbladder is distended and contains stones. There is no CT evidence of acute cholecystitis. Spleen: Normal in size and attenuation. Pancreas: Unremarkable. Adrenal glands: Unremarkable. Kidneys: The contrast enhanced kidneys demonstrate mild cortical atrophy and are without hydronephrosis. The kidneys enhance symmetrically. Bilateral renal cysts measure up to 4.7 cm. Additional subcentimeter cortical hypodensities also likely represent cysts but are too small for definitive characterization. Cortical scarring is seen in the left lower pole. Abdominal vasculature: There is moderate to advanced atherosclerotic calcification and ectasia of the abdominal aorta. Bowel: There is mild colonic diverticulosis without CT evidence of acute diverticulitis. No bowel obstruction is seen. Duodenal diverticula are noted. The appendix is well-visualized and normal. Peritoneum: There is no intraperitoneal free air or abdominal ascites. Lymphadenopathy: None. Pelvic viscera: The prostate gland is diminutive and heterogeneous. The bladder is normal as visualized. Skeletal structures: The skeletal structures are osteopenic. The lumbosacral spine, bony pelvis, and proximal femora appear intact. There is mild to moderate lumbosacral spondylosis. No lytic or blastic lesions are seen. IMPRESSION: 1. There is no evidence of solid organ injury in the abdomen or pelvis. 2. Emphysema and a spiculated right lower lobe mass lesion are again noted. A bronchogenic neoplasm remains the diagnosis of exclusion. 3. Cholelithiasis. 4. Additional findings as above. ACT 112: Positive. There are findings on this exam that require communication between the performing entity and the patient following Patient Test Result Information Act ([place] Act 112) guidelines. Electronically signed by: Harsh Rm M.D. 08/05/2023 4:[address] 08/05/23 14:21 CT cervical spine wo con CLINICAL HISTORY: fall on eliquis TECHNIQUE: Multidetector row helical CT of the cervical spine was performed without administration of intravenous contrast. Coronal and sagittal reformations were obtained. Automated dose lowering techniques and/or adjustment according to patient size were utilized for this exam. Comparison: None available at the time of this dictation. FINDINGS: No acute fractures or subluxations are identified. Degenerative changes are seen in the visualized spine. There is calcification of the transverse ligament. The alignment is normal. Partial visualization of fractures of the left maxillary sinus cain and soft tissue density in the sinus. Emphysema is seen in the visualized upper lungs. IMPRESSION: 1. Degenerative changes are seen in the cervical spine without evidence of acute fracture. 2. Please see CT cervical spine for findings of skull fractures. ACT 112: Negative or not required by law. Electronically signed by: Rico Enriquez M.D. 08/05/2023 4:26 PM Chest X-Ray 08/05/23 14:21 XR chest 1V portable HISTORY: 88 years-old Male Chest pain, nonspecific acute chest pain status post fall COMPARISON: 03/17/2023 TECHNIQUE: AP view of the chest FINDINGS: Cardiomediastinal and hilar silhouettes are within normal limits. Chronic interstitial coarsening. Ill-defined nodule within the basal right lower lobe previously measured at 4 cm. Emphysema. Degenerative changes of the shoulders and spine. IMPRESSION: 1. Emphysema with chronic interstitial coarsening. 2. Right lower lobe lesion redemonstrated, better characterized on the comparison PET/CT. ACT 112: Negative or not required by law. The above report was generated using voice recognition software. It may contain grammatical, syntax or spelling errors. Electronically signed by: Rodney Morataya M.D. 08/05/2023 3:[address] 08/05/23 14:21 CT SCAN OF THE FACIAL BONES WITHOUT IV CONTRAST CLINICAL HISTORY: Fall. COMPARISON STUDY: Orbital radiographs dated 12/20/2020. TECHNIQUE: High-resolution CT scan of the facial bones is performed. Images are reviewed in the axial, sagittal, and coronal planes. IV contrast was not administered for this examination. A dose lowering technique was utilized adhering to the principles of ALARA. FINDINGS: The skeletal structures are osteopenia. There is a nondepressed fracture of the left orbital floor. Fracture also involves the medial and lateral cain of the left orbit. There are also comminuted fractures involving the anterior and posterior cain of the left maxillary sinus with depressed fragments. The right orbit is intact. Orbital contents are within normal limits noting bilateral ocular lens implant. There is likely fracture of the left frontal process of the maxilla. No depressed nasal bone fracture is seen. The zygomatic arches and pterygoid plates are preserved. The mandible is intact. The patient is edentulous. Advanced degenerative change is noted at the temporomandibular joints. There are layering blood products within the left maxillary antrum. There is mild mucosal thickening within the frontal sinuses. The remaining paranasal sinuses are clear. There is trace left mastoid effusion. The right mastoid air cells are well pneumatized. The visualized calvarium and upper cervical spine are maintained. Partially imaged brain parenchyma is within normal limits noting age-related involutional change. Calcified sialoliths are seen within the parotid glands. IMPRESSION: 1. Nondepressed left orbital floor fracture. Fracture also involves the medial and lateral cain of the left orbit. 2. There are comminuted fractures to the anterior and posterior cain of the left maxillary antrum, with layering blood products within the sinus. 3. There is likely fracture of the left frontal process of the maxilla. 4. The right orbit is intact and orbital contents are normal as imaged. ACT 112: Negative or not required by law. Electronically signed by: Harsh Rm M.D. 08/05/2023 4:[address] 08/05/23 14:21 CT head/brain wo con CLINICAL HISTORY: fall on eliquis Technique: Contiguous axial CT images of the head were acquired from the base of the skull to the vertex without intravenous contrast administration. Images were viewed in brain, subdural and bone windows. Automated dose lowering techniques and/or adjustment according to patient size were utilized for this exam. Comparison: Comparison is made to CT head 12/19/2020 Findings: Areas of decreased attenuation are present in the periventricular and subcortical white matter bilaterally consistent with small vessel ischemic disease. Generalized cerebral atrophy with commensurate enlargement of the ventricles, sulci, and cisterns is also present. There is no acute intracranial hemorrhage or evidence of acute territorial infarction. No shift of the midline structures, mass effect, or extra-axial abnormalities are shown. Atherosclerotic calcifications are present in the intracranial segments of the internal carotid arteries. Imaged portions of the paranasal sinuses and mastoid air cells are clear. The orbits appear normal. No calvarial fracture is seen. Fractures of the left maxillary sinus cain partially visualized. Subcutaneous emphysema and swelling are seen in the left maxillary soft tissues. Impression: No acute intracranial hemorrhage, no evidence of acute territorial infarction or other acute intracranial disease process. Please see CT facial bones for detailed findings of left-sided facial fractures. ACT 112: Negative or not required by law. Electronically signed by: Rico Enriquez M.D. 08/05/2023 4:17 PM Pelvis X-Ray 08/05/23 14:21 XR pelvis 1-2V routine CLINICAL HISTORY: fall on eliquis TECHNIQUE: A single frontal view of the pelvis was obtained. Comparison: None available at the time of this dictation. FINDINGS: There is no evidence of an acute fracture. Degenerative changes are seen in the hip joints and lumbar spine. Vascular calcifications are noted. IMPRESSION: Degenerative changes without evidence of acute abnormality. ACT 112: Negative or not required by law. Electronically signed by: Rico Enriquez M.D. 08/05/2023 3:06 PM
[2023-08-05] MEDS ORDERED: AMOXICILLIN/CLAVULANATE 875 MG TAB PO SCH (20:35)
--- NOTE | 2023-08-05 21:51 | XRay Report ---
RIGHT SHOULDER 3 VIEWS CLINICAL HISTORY: Fall. Right shoulder pain. FINDINGS: 3 views the right shoulder are obtained. No prior studies are available for comparison at t he time of dictation. The skeletal structures are osteopenic. There is no radiographic evidence of fr acture or dislocation. Mild arthritic change is seen at the glenohumeral and acromioclavicular joints . Superior subluxation of the humeral head suggests chronic rotator cuff injury. Mild soft tissue tarsha ma is seen superior to the AC joint. The visualized right lung parenchyma appears clear. IMPRESSION: No acute bony abnormality is identified. Electronically signed by: Harsh Rm M.D. 08/05/2023 9:50 PM
[2023-08-05] MEDS ORDERED: POLYETHYLENE (MIRALAX) 17 GM PACK PO PRN (22:57)
[2023-08-05] MEDS ORDERED: ALBUTEROL HFA 8 GM INHALER INH PRN (22:57)
[2023-08-06] MEDS: SODIUM CHLORIDE 0.9% 500 ML IV SCH ×6 (02:59→18:16)
[2023-08-06] MEDS ORDERED: METOPROLOL TARTRATE 1 MG/ML VIAL IV STA (03:13)
[2023-08-06 03:51] LABS: Thyroid Stimulating Hormone 1.509 uIu/ml (0.300-4.500)
[2023-08-06 05:16] LABS: Hematocrit (blood only) 32.9 % (42.0-52.0); Hemoglobin 10.9 g/dl (14.0-18.0); Mean Corpuscular Hemoglobin 27.7 pg (25.0-34.0); Mean Corpuscular Hgb Conc 33.1 g/dL (32.0-36.0); Mean Corpuscular Volume 83.7 fL (80.0-100.0); Mean Platelet Volume 9.6 fL (9.4-12.4); Platelet Count 188 K/uL (130-400); RDW Standard Deviation 58.4 fL (36.4-46.3); Red Blood Count 3.93 M/uL (4.70-6.10); White Blood Count 7.38 K/ul (4.8-10.8)
[2023-08-06] MEDS: METOPROLOL SUCC 25MG EXT REL TAB PO SCH (05:28)
[2023-08-06 05:32] LABS: Calcium 8.4 mg/dl (8.6-10.3); Creatinine Clr Calc Pharmacy 36.8 ml/min; Est GFR (African American) 59.4 ml/min; Est GFR (Non-African American) 51.2 ml/min; Phosphorus 3.8 mg/dl (2.5-4.9); Potassium 4.2 mmol/L (3.5-5.1)
[2023-08-06 05:45] LABS: Prothrombin Time 10.9 Seconds (9.0-12.0)
--- NOTE | 2023-08-06 08:21 | CT Scan Report ---
CT SCAN OF THE BRAIN WITHOUT IV CONTRAST CLINICAL HISTORY: Head injury. COMPARISON STUDY: CT of the brain dated 08/05/2023. TECHNIQUE: Unenhanced axial CT scan of the brain is performed from the vertex to the skull base. A do se lowering technique was utilized adhering to the principles of ALARA. CT DOSE: 625.8 mGy.cm FINDINGS: Brain parenchyma: There is age-related involutional change noting moderate to advanced subcortical an d periventricular microangiopathic disease. A small chronic infarct is seen in the high right frontal cortex. There is no hemorrhage, mass effect, or evidence of acute territorial ischemia by CT criteri a. Ponce-white matter differentiation is preserved. No extra-axial fluid collection is seen. Ventricles, sulci, cisterns: Prominent secondary to involutional change. Intracranial vasculature: There is atherosclerotic calcification of the cavernous carotid and vertebr al arteries. Calvarium: The skeletal structures are osteopenic. No depressed calvarial fracture is seen. Sinuses and mastoids: There are blood products within the left maxillary antrum. Mild mucosal thicken ing seen in the left frontal sinus and the left ethmoid sinuses. There is a small left mastoid effusi on. The right mastoid air cells are well pneumatized. Orbits: Fractures of the left orbit and left maxillary sinus are again noted. Oral contents are guillermo l as imaged noting bilateral ocular lens implants. IMPRESSION: 1. There is no hemorrhage, mass effect, or evidence of acute territorial ischemia by CT criteria. 2. Fractures of the left orbit and left maxillary sinus are again noted. ACT 112: Negative or not required by law. Electronically signed by: Harsh Rm M.D. 08/06/2023 8:19 AM
[2023-08-06] MEDS ORDERED: ATORVASTATIN 40 MG TAB PO SCH (09:00)
[2023-08-06] MEDS ORDERED: METOPROLOL SUCC 25MG EXT REL TAB PO SCH (09:00)
[2023-08-06] MEDS ORDERED: lisinopril 2.5 MG TAB PO SCH (09:00)
[2023-08-06] MEDS: AMOXICILLIN/CLAVULANATE 875 MG TAB PO SCH ×2 (09:03→16:26)
[2023-08-06] MEDS ORDERED: INFLUENZA VACCINE HIGH-DOSE (HD-IIV4) PF 65+ 0.7mL SYR IM ONE (09:20)
--- NOTE | 2023-08-06 11:26 | Oral/Maxillofacial Consult ---
Date of Consultation August History of Present Illness Reason for Consultation: I received a call from the ED regarding this patient. 88 yo M on ASA and apixaban presents after son found him in bed with a bruised eye that was new suggestive of a fall overnight. He has had multiple falls in recent weeks. He reports dizziness as a cause of his falls as well as tripping over objects such as his shoes which he did yesterday. I reviewed the CT findings and noted that indeed there are facial/sinus fractures they are insignificant and will require no treatment. Librado has a very atrophic upper jaw (no teeth) and the non displaced anterior maxillary fracture will heal with out any intervention. His eye movement is all WNL, no evidence to support any eye muscle entrapment. The anterior and posterior sinus wall fractures will heal without any sequela. As long as no nasal bleeding he can be restated on his ASA and Apixaban. I followed up and evaluated Librado on Aug 09 in his hospital room. He has some resolving ecchymosis but no sequela from the fracture as discussed above, the left eye is clear with excellent ROM. No bleeding, sinus issues , no complaints. Based on the CT scan findings and clinically appearance no treatment is needed From a maxillofacial point of view no treatment or follow up is needed. The fractures are insignificant and will not have any penitentiary functional effects. There is minimal amount of blood w/in left sinus There are fractures in the left orbit and the left upper jaw area. There is no c-spine fracture, head, pelvis. IMPRESSION: 1. Nondepressed left orbital floor fracture. Fracture also involves the medial and lateral cain of the left orbit. 2. There are comminuted fractures to the anterior and posterior cain of the left maxillary antrum, with layering blood products within the sinus. 3. There is likely fracture of the left frontal process of the maxilla. 4. The right orbit is intact and orbital contents are normal as imaged. IMPRESSION: CT head 1. There is no hemorrhage, mass effect, or evidence of acute territorial ischemia by CT criteria. 2. Fractures of the left orbit and left maxillary sinus are again noted. Attending Physician: Vincenzo Adams MD History of Present Illness Fall and sinus fractures bruising of left eye Allergies Allergy/AdvReac Type Severity Reaction Status Date / Time cheese Allergy Intermediate Hives Verified 08/05/23 18:29 shellfish derived Allergy Intermediate Hives Verified 08/05/23 18:29 Home Medications Medication Instructions Recorded Confirmed Type cinnamon bark 500 mg capsule 500 mg PO MOWEFR 12/19/20 08/05/23 History (Cinnamon) nitroglycerin 0.4 mg sublingual 0.4 mg sublingual UD PRN Chest Pain 12/19/20 08/05/23 History tablet (Nitrostat) aspirin 81 mg tablet,delayed 81 mg PO DAILY #21 tabs 12/23/20 08/05/23 Rx release acetaminophen 325 mg capsule 650 mg PO QID PRN Fever Or Pain 05/26/23 08/05/23 History albuterol sulfate 90 mcg/actuation 2 puff inhalation Q4H PRN 05/26/23 08/05/23 History aerosol inhaler (Ventolin HFA) Shortness Of Breath Or Wheezing atorvastatin 40 mg tablet 40 mg PO DAILY 05/26/23 08/05/23 History ergocalciferol (vitamin D2) 50 mcg 50 mcg PO DAILY 05/26/23 08/05/23 History (2,000 unit) tablet ipratropium bromide 42 mcg (0.06 2 spray intranasal QID PRN 05/26/23 08/05/23 History %) nasal spray Shortness Of Breath Or Wheezing [id number]-[id number]-fsljsf tablet 1 tab PO DAILY 05/26/23 08/05/23 History umeclidinium 62.5 mcg-vilanterol 1 inh inhalation DAILY 05/26/23 08/05/23 History 25 mcg/actuation powdr for inhalation apixaban 2.5 mg tablet (Eliquis) 2.5 mg PO HS 08/05/23 08/05/23 History lisinopril 2.5 mg tablet 2.5 mg PO DAILY 08/05/23 08/05/23 History metoprolol succinate 25 mg 25 mg PO DAILY 08/05/23 08/05/23 History tablet,extended release 24 hr Patient History Medical History Acute [place] CAD (coronary artery disease) CKD (chronic kidney disease) stage 3, GFR 30-59 ml/min COPD (chronic obstructive pulmonary disease) Diverticulosis Dyslipidemia Gout H/O: CVA (cerebrovascular accident) HTN (hypertension) Ischemic heart disease due to coronary artery obstruction Kidney stone Osteoarthritis PAD (peripheral artery disease) Protein calorie malnutrition Vitamin D deficiency Surgical History H/O heart artery stent History of bronchoscopy History of inguinal hernia repair History of tonsillectomy and adenoidectomy Family History Sister Cancer Breast Daughter Cancer Ovarian Father Cancer Lung cancer Brother Cancer Pancreatic Social History Smoking Status: Former smoker Tobacco Type: Cigarettes packs per day: 1.5; Smoking End Date: quit 2002; Second Hand Exposure: No; Do You Dip or Chew Tobacco: No; Tobacco Cessation Education Requested by Patient: No Hx Alcohol Use: Yes Alcohol type: beer Hx Substance Use: No Preferred Language: Bengali Communication Ability: Effective Visual Impairment: Partially Limited Hearing Ability: Use of Hearing Aid Hospital Cook Required: No Beliefs That Will Affect Care: Jainism Current Living Situation: Alone Current Living Situation Comment: Mobile home, with cat "Ring," home owned by his adult children current occupational status: retired 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; 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 [employer] Other Information That Helps Us Care for You: No Feels Safe at Home: Yes Safety Concerns: Feels Safe At This Time Diet: regular during the past year weight has: decreased > 10 lbs Assistive Devices: Cane Results & Data Vital Signs (Past 12 Hours) Vital Signs Temp Pulse Pulse Resp BP BP Pulse Ox 08/06/23 11:14 95 H 20 101/56 L 94 08/06/23 07:26 97 H 08/06/23 06:00 95 H 31 H 94 08/06/23 06:00 131/77 08/06/23 05:50 97 H 21 94 08/06/23 05:40 96 H 23 94 08/06/23 05:30 97 H 25 H 95 08/06/23 05:20 103 H 20 93 08/06/23 05:10 100 H 21 93 08/06/23 05:00 101 H 24 94 08/06/23 05:00 136/79 08/06/23 04:50 100 H 23 93 08/06/23 04:40 103 H 20 92 08/06/23 04:30 101 H 18 94 10/06/23 04:20 91 H 27 H 94 08/06/23 04:10 103 H 17 94 08/06/23 04:04 130/74 08/06/23 04:04 104 H 16 90 08/06/23 04:02 98/72 L 08/06/23 04:02 104 H 21 94 08/06/23 04:00 101 H 22 94 08/06/23 03:50 101 H 21 92 08/06/23 03:40 101 H 22 92 08/06/23 03:30 124 H 21 92 08/06/23 03:20 99 H 24 93 08/06/23 03:10 134 H 21 93 08/06/23 03:00 124 H 24 94 08/06/23 02:50 107 H 20 92 08/06/23 02:40 108 H 24 93 08/06/23 02:30 114 H 21 95 08/06/23 02:29 116 H 32 H 97 08/06/23 02:10 23 93 08/06/23 02:00 106 H 22 93 08/06/23 02:00 121/73 08/06/23 01:50 104 H 22 93 08/06/23 01:40 104 H 23 94 08/06/23 01:49 37.2 C 98 H 21 122/72 97 08/06/23 01:30 107 H 21 95 08/06/23 01:20 109 H 21 94 08/06/23 01:15 122/72 08/06/23 01:15 112 H 22 08/06/23 01:10 115 H 20 08/06/23 01:00 106 H 21 97 08/06/23 00:54 151 H 20 08/06/23 00:20 100 H 22 97 08/06/23 00:10 106 H 20 97 08/06/23 00:00 103 H 24 94 08/05/23 23:50 103 H 24 93 08/05/23 23:40 107 H 24 91 08/05/23 23:30 108 H 22 94 08/06/23 01:23 117 H 08/06/23 00:00 103 H O2 Del Method 08/06/23 11:14 Room Air 08/06/23 07:26 08/06/23 06:00 08/06/23 06:00 08/06/23 05:50 08/06/23 05:40 08/06/23 05:30 08/06/23 05:20 08/06/23 05:10 08/06/23 05:00 08/06/23 05:00 08/06/23 04:50 08/06/23 04:40 08/06/23 04:30 08/06/23 04:20 08/06/23 04:10 08/06/23 04:04 08/06/23 04:04 08/06/23 04:02 08/06/23 04:02 08/06/23 04:00 08/06/23 03:50 08/06/23 03:40 08/06/23 03:30 08/06/23 03:20 08/06/23 03:10 08/06/23 03:00 08/06/23 02:50 08/06/23 02:40 08/06/23 02:30 08/06/23 02:29 08/06/23 02:10 08/06/23 02:00 08/06/23 02:00 08/06/23 01:50 08/06/23 01:40 08/06/23 01:49 Room Air 08/06/23 01:30 08/06/23 01:20 08/06/23 01:15 08/06/23 01:15 08/06/23 01:10 08/06/23 01:00 08/06/23 00:54 08/06/23 00:20 08/06/23 00:10 08/06/23 00:00 08/05/23 23:50 08/05/23 23:40 08/05/23 23:30 08/06/23 01:23 08/06/23 00:00 PG Care Time/CCT Total # of Minutes Spent Total Time Spent with Patient: Total time spent is greater than 50% in coordination of care (as documented) at patient's floor/unit and/or counseling patient: Coding Level of Care Code 36089 INT INP/OBS CARE 1/40MIN Diagnoses
[2023-08-06] MEDS: UMECLIDINIUM/VILANTEROL 62.5/25MCG 7 PUFFS/INHALER INH SCH (11:59)
--- NOTE | 2023-08-06 14:15 | Electrocardiogram Report ---
Test Reason : Blood Pressure : / mmHG Vent. Rate : 096 BPM Atrial Rate : 000 BPM P-R Int : 000 ms QRS Dur : 136 ms QT Int : 416 ms P-R-T Axes : 000 098 004 degrees QTc Int : 525 ms Atrial fibrillation Right bundle branch block T wave abnormality, consider inferior ischemia Abnormal ECG When compared with ECG of 19-DEC-2020 18:36, Atrial fibrillation has replaced Sinus rhythm Borderline criteria for Inferior infarct are no longer Present Confirmed by Saeid Henley ([id number]) on 08/06/2023 2:15:09 PM Referred By: REFERRED SELF Confirmed By:Kunal Henley
--- NOTE | 2023-08-06 14:23 | Electrocardiogram Report ---
Test Reason : Blood Pressure : / mmHG Vent. Rate : 111 BPM Atrial Rate : 111 BPM P-R Int : 154 ms QRS Dur : 128 ms QT Int : 386 ms P-R-T Axes : 016 091 -14 degrees QTc Int : 524 ms Sinus tachycardia Right bundle branch block T wave abnormality, consider inferior ischemia Abnormal ECG When compared with ECG of 05-AUG-2023 14:32, (unconfirmed) Sinus rhythm has replaced Atrial fibrillation Confirmed by Saeid Henley ([id number]) on 08/06/2023 2:22:39 PM Referred By: REFERRED SELF Confirmed By:Kunal Henley
--- NOTE | 2023-08-06 16:11 | Cardiology Consultation ---
Date of Consultation August 06, 2023 Assessment & Plan (1) Dizziness: (2) Elevated troponin: (3) PAF (paroxysmal atrial fibrillation): (4) RBBB: (5) Ischemic heart disease: Plan Dizziness. History most suggestive of symptomatic orthostatic hypotension. + Limited oral intake noted, ? malnutrition. Increase oral hydration. Discontinue lisinopril. Consider discontinuation of BuSpar and Trazodone, Re: Dizziness Elevated troponin. Minimal elevation. Patient asymptomatic in regards to overt angina symptoms. Suspect multifactorial etiology, secondary to trauma (fall on the chest), paroxysmal atrial fibrillation, pulmonary disease, renal dysfunction. Paroxysmal atrial fibrillation. Asymptomatic. Recommend resumption of low dose metoprolol succinate 25 mg/day. Risks of anticoagulation currently outweigh benefit. Recommend against the use of antiarrhythmic therapy (amiodarone) given asymptomatic status, underlying pulmonary issues, prolonged QTc (chronic right bundle branch block) ASCVD. Stable. Resume ASA 81 mg/day as soon as able. Dyslipidemia. Atorvastatin 40 mg/day on hold. Supervising Physician Co-Signing Physician Notes 88-year-old male admitted with recurrent falls. Poor historian, however, denies syncope. Telemetry reveals paroxysmal atrial fibrillation with intermittent sinus rhythm. No significant bradycardia or pauses recorded. Carries history of PAF and prior stroke chronically treated with reduced dose apixaban and aspirin. PE: VSS. Gen: NAD, AAO x 3. Heart: Borderline tachycardic. Normal S1-S2.Heart: Irregular rhythm, borderline tachycardic. Lungs: No rhonchi or wheeze. Extremities: No edema. A/P: Agree with above PA-C history, physical exam, assessment and plan. Patient symptoms of "dizziness" more suggestive of orthostatic hypotension. Reports mechanical fall without history to support syncope or near syncope. Recommend continue telemetry monitoring. Discontinue lisinopril and encourage hydration. Resume low-dose beta-angela therapy and monitor telemetry. Hold anticoagulation. Resume low-dose aspirin as soon as able. History of Present Illness Reason for Consultation: Dizziness, elevated troponin, abnormal EKG Requesting Physician: Dr. Vincenzo Adams MD Attending Physician: Vincenzo Adams MD History of Present Illness Mr. Librado Tsai is a very pleasant 88-year-old male who is being seen at the request of Dr. Adams. Reasons for consultation include dizziness, elevated troponin, and abnormal EKG. Mr. Kapoor notes having a rough couple of years. He describes having a stroke in December 2020, COVID approximately 1 year ago, another stroke shortly after having COVID, and more recently being diagnosed with non-small cell lung cancer of the right lower lobe in April 2023 status post completion of radiation therapy on July 29, 2023 Patient notes having multiple falls of late. Patient describes bending over then rising, experiencing a head bland and dizziness with resultant fall. He notes that he notes experiencing significant shortness of breath since ila COVID approximately 1 year ago. Since that time he has been unable to walk to the dumpster to take out the garbage without having to stop and rest. He notes that his legs become weak and are unable to hold him up. He reports limited oral intake of fluids. He notes getting Meals on Wheels on Tuesdays and typically eating frozen dinners from [facility]. Notes being off lisinopril and metoprolol for a few months, without improvement in the above. The patient was brought to the ER on August 05, 2025 after experiencing a fall yesterday, falling on the chest and face. Imaging has revealed a closed left maxillary fracture and a closed left orbit fracture. Laboratory work revealed evidence of mild rhabdomyolysis and acute on chronic renal dysfunction for which patient has received IV fluid resuscitation. Low-dose apixaban (2.5 mg twice daily) and aspirin (81 mg/day) have been placed on hold. EKG on August 05, 2023 personally reviewed, revealed atrial fibrillation with a ventricular rate of 96 bpm, with a right bundle branch block and inferior T wave changes suggestive of ischemia EKG on August 06, 2023 at 02:31:13 personally reviewed, revealed sinus tachycardia 111 bpm with a right bundle branch block and diffuse STT wave changes High-sensitivity troponin elevated at 36.4 then 30.2 pg/mL. CPK 1280 then 689 U/L. Admission chest x-ray not available for personal review, revealing emphysema with chronic interstitial coarsening and a redemonstrated right lower lobe lesion as per radiologist. Patient admitted to ICU Room 107. Personal review of the patient's continuous telemetry monitoring reveals sinus rhythm, sinus tachycardia, and paroxysmal atrial fibrillation No chest pain. No overt palpitations. No orthopnea or PND. No lower extremity peripheral edema. Cardiology Problem List: Ischemic heart disease s/p inferior wall myocardial infarction. PCI stent of totally occluded RCA (took place in 2002) Hypertension Chronic RBBB Dyslipidemia. Carotid occlusive disease Paroxysmal atrial fibrillation. Allergies Allergy/AdvReac Type Severity Reaction Status Date / Time cheese Allergy Intermediate Hives Verified 08/05/23 18:29 shellfish derived Allergy Intermediate Hives Verified 08/05/23 18:29 Home Medications Medication Instructions Recorded Confirmed Type cinnamon bark 500 mg capsule 500 mg PO MOWEFR 12/19/20 08/05/23 History (Cinnamon) nitroglycerin 0.4 mg sublingual 0.4 mg sublingual UD PRN Chest Pain 12/19/20 08/05/23 History tablet (Nitrostat) aspirin 81 mg tablet,delayed 81 mg PO DAILY #21 tabs 12/23/20 08/05/23 Rx release acetaminophen 325 mg capsule 650 mg PO QID PRN Fever Or Pain 05/26/23 08/05/23 History albuterol sulfate 90 mcg/actuation 2 puff inhalation Q4H PRN 05/26/23 08/05/23 History aerosol inhaler (Ventolin HFA) Shortness Of Breath Or Wheezing atorvastatin 40 mg tablet 40 mg PO DAILY 05/26/23 08/05/23 History ergocalciferol (vitamin D2) 50 mcg 50 mcg PO DAILY 05/26/23 08/05/23 History (2,000 unit) tablet ipratropium bromide 42 mcg (0.06 2 spray intranasal QID PRN 05/26/23 08/05/23 History %) nasal spray Shortness Of Breath Or Wheezing [id number]-mirpjded-vysqqk tablet 1 tab PO DAILY 05/26/23 08/05/23 History umeclidinium 62.5 mcg-vilanterol 1 inh inhalation DAILY 05/26/23 08/05/23 History 25 mcg/actuation powdr for inhalation apixaban 2.5 mg tablet (Eliquis) 2.5 mg PO HS 08/05/23 08/05/23 History lisinopril 2.5 mg tablet 2.5 mg PO DAILY 08/05/23 08/05/23 History metoprolol succinate 25 mg 25 mg PO DAILY 08/05/23 08/05/23 History tablet,extended release 24 hr Patient History Medical History Acute [place] CAD (coronary artery disease) CKD (chronic kidney disease) stage 3, GFR 30-59 ml/min COPD (chronic obstructive pulmonary disease) Diverticulosis Dyslipidemia Gout H/O: CVA (cerebrovascular accident) HTN (hypertension) Ischemic heart disease due to coronary artery obstruction Kidney stone Osteoarthritis PAD (peripheral artery disease) Protein calorie malnutrition Vitamin D deficiency Surgical History H/O heart artery stent History of bronchoscopy History of inguinal hernia repair History of tonsillectomy and adenoidectomy Family History Sister Cancer Breast Daughter Cancer Ovarian Father Cancer Lung cancer Brother Cancer Pancreatic Social History Smoking Status: Former smoker Tobacco Type: Cigarettes packs per day: 1.5; Smoking End Date: quit 2002; Second Hand Exposure: No; Do You Dip or Chew Tobacco: No; Tobacco Cessation Education Requested by Patient: No Hx Alcohol Use: Yes Alcohol type: beer Hx Substance Use: No Preferred Language: Azeri Communication Ability: Effective Visual Impairment: Partially Limited Hearing Ability: Use of Hearing Aid Burner Operator Required: No Beliefs That Will Affect Care: Taoist Current Living Situation: Alone Current Living Situation Comment: Mobile home, with cat "Ring," home owned by his adult children current occupational status: retired 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 No fevers. HEENT: No amaurosis fugax. Hard of hearing. Edentuous. Does not wear dentures. Pulmonary: COPD. Lung cancer. Reformed smoker. Prior hemoptysis. Cardiac: See above. GI/Abd: + GERD. + Dysphagia. No melana or hematochezia. CKD. Abnormal liver blood tests Vascular: Carotid disease. Denies claudication Musculoskeletal: Arthritis. Gout. Complete Review of Systems is as stated above, negative, or noncontributory. Physical Exam Physical Exam: General: A&Ox3. NAD. HEENT: Ecchymotic left eye. PER. Neck: No carotid bruits. No JVD. Heart: Regular at 100 bpm. Systolic ejection murmur. No diastolic murmur. Lungs: Clear to auscultation anterorly Abdomen: +BS. Soft. Nontender. No masses or organomegaly. Extremities: No clubbing, cyanosis, or edema. Limited neurological examination is without focal deficits. Pulses: Posterior tibial=1/4. Results & Data Vital Signs (Past 12 Hours) Vital Signs Pulse Pulse Resp BP BP Pulse Ox O2 Del Method 08/06/23 11:14 95 H 20 101/56 L 94 Room Air 08/06/23 07:26 97 H 08/06/23 06:00 95 H 31 H 94 08/06/23 06:00 131/77 08/06/23 05:50 97 H 21 94 08/06/23 05:40 96 H 23 94 08/06/23 05:30 97 H 25 H 95 08/06/23 05:20 103 H 20 93 08/06/23 05:10 100 H 21 93 08/06/23 05:00 101 H 24 94 08/06/23 05:00 136/79 08/06/23 04:50 100 H 23 93 08/06/23 04:40 103 H 20 92 08/06/23 04:30 101 H 18 94 08/06/23 04:20 91 H 27 H 94 Laboratory Results Cardiac Enzymes 08/05/23 Range/Units 16:19 Troponin I High Sens 30.2 H (0-20) pg/ml Coagulation 08/06/23 Range/Units 04:37 PT 10.9 (9.0-12.0) Seconds CBC 08/06/23 Range/Units 04:37 WBC 7.38 (4.8-10.8) K/ul RBC 3.93 L (4.70-6.10) M/uL Hgb 10.9 L D (14.0-18.0) g/dl Hct 32.9 L (42.0-52.0) % Plt Count 188 (130-400) K/uL Comprehensive Metabolic Panel 08/06/23 Range/Units 04:37 Sodium 141 (136-145) mmol/L Potassium 4.2 (3.5-5.1) mmol/L Chloride 111 H (98-107) mmol/L Carbon Dioxide 23 (21-32) mmol/L BUN 26 H (6-23) mg/dl Creatinine 1.24 (0.6-1.4) mg/dl Glucose 105 H (70-99(Fasting)) mg/dl Calcium 8.4 L (8.6-10.3) mg/dl Intake and Output 08/06/23 08/06/23 08/06/23 06:59 14:59 22:59 Intake Total 702.083 / 1702.083 500 / 500 Balance 702.083 / 1702.083 500 / 500 Intake: IV 702.083 / 1702.083 500 / 500 Sodium Chloride 0.9% 500 ml @ 702.083 / 1202.083 500 / 500 125 mls/hr IV .Q4H [facility] Rx#: [id number] Other: Weight 64.4 kg Weight Measurement Method Built in [facility]
[2023-08-06] MEDS: ACETAMINOPHEN 325 MG TAB PO PRN (16:30)
--- NOTE | 2023-08-06 16:38 | Hospitalist Progress Note ---
Date of Service August 06, 2023 Assessment & Plan (1) Recurrent falls: Plan: Recurrent falls Dizziness DD: Rule out arrhythmias --CT head:There is no hemorrhage, mass effect, or evidence of acute territorial ischemia by CT criteria. Fractures of the left orbit and left maxillary sinus are again noted. -- Neck CT:Degenerative changes are seen in the cervical spine without evidence of acute fracture. Please see CT cervical spine for findings of skull fractures. -- Fall precautions Monitor on telemetry PT OT as able Atrial fibrillation Right bundle branch block ? H/O P.afib Normal TSH Resume Eliquis as able: Risks Vs Benefit to be assessed Continue metoprolol Cardiology consulted (2) Left orbit fracture: Plan: Closed fracture, nondepressed on films without evidence of visual involvement/globe rupture. Secondary to fall --Face CT:Nondepressed left orbital floor fracture. Fracture also involves the medial and lateral cain of the left orbit. There are comminuted fractures to the anterior and posterior cain of the left maxillary antrum, with layering blood products within the sinus. There is likely fracture of the left frontal process of the maxilla. The right orbit is intact and orbital contents are normal as imaged. -- Consulted oral maxillofacial surgery Supportive care (3) Closed left maxillary fracture: Plan: Closed traumatic fracture. Consulted oral maxillofacial surgery Empirically was started on Augmentin (4) Rhabdomyolysis: Plan: Traumatic rhabdomyolysis Elevated CK levels Mild troponin elevation likely secondary to rhabdo Hold statin Monitor renal function Continue IV fluids Monitor CK BRINA on CKD III Cr elevation likely due to rhabdo Hold lisinopril for now Monitor renal function Avoid nephrotoxic agents as able (5) Right shoulder injury: Plan: Right shoulder x-ray:No acute bony abnormality is identified. Fall precautions Pain control (6) Acute kidney injury superimposed on chronic kidney disease: Plan: Management as above (7) Non-small cell carcinoma of lung: Plan: Follows with Dr. 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(2002) Continue Aspirin, Metoprolol Resume statin as able DVT Px: SCDs for now Code Status DNR/DNI Disposition PT OT prior to discharge Patient lives alone at home Case management to help with discharge planning Admission and Anticipated Discharge Date Admission Date: August 05, 2023 Subjective Patient is seen and examined at bedside States having ongoing dizziness Reports no significant left periorbital pain Also denies any shortness of breath, nausea, vomiting, chest pain, abdominal pain Reports chronic cough unchanged Discussed with patient's family at bedside No other complaints Review of Systems Review of Systems: All systems reviewed & are unremarkable except as noted in Subjective Physical Exam Physical Exam: Physical Exam: Vitals signs as noted above General Appearance:Thin, frail, Elderly, no apparent distress Head: normocephalic, Atraumatic Eyes: normal inspection, EOMI, L eye periorbital ecchymosis, tender Neck: supple, Trachea midline Respiratory/Chest: Normal breath sounds, CTA, No accessory muscle use Cardiovascular: Irregularly irregular, No murmur Abdomen/GI:Soft, Non tender, Bowel sounds present Extremities/Musculoskeletal:normal inspection, no edema Neurologic/Psych:AAOX3, grossly no focal neurological deficits Skin: normal color, warm Results & Data Results & Data Vital Signs (Past 12 Hours) Vital Signs Pulse Pulse Resp BP BP Pulse Ox O2 Del Method 08/06/23 11:14 95 H 20 101/56 L 94 Room Air 08/06/23 07:26 97 H 08/06/23 06:00 95 H 31 H 94 08/06/23 06:00 131/77 08/06/23 05:50 97 H 21 94 08/06/23 05:40 96 H 23 94 08/06/23 05:30 97 H 25 H 95 08/06/23 05:20 103 H 20 93 08/06/23 05:10 100 H 21 93 08/06/23 05:00 101 H 24 94 08/06/23 05:00 136/79 08/06/23 04:50 100 H 23 93 08/06/23 04:40 103 H 20 92 08/06/23 04:30 101 H 18 94 Laboratory Results Short CBC 08/06/23 Range/Units 04:37 WBC 7.38 (4.8-10.8) K/ul Hgb 10.9 L D (14.0-18.0) g/dl Hct 32.9 L (42.0-52.0) % Plt Count 188 (130-400) K/uL BMP 08/06/23 04:37 Sodium 141 Potassium 4.2 Chloride 111 H Carbon Dioxide 23 BUN 26 H Creatinine 1.24 Glucose 105 H Calcium 8.4 L Cardiac Enzymes 08/06/23 Range/Units 04:37 Total Creatine Kinase 689 H (30-223) U/L
[2023-08-06] MEDS: SODIUM CHLORIDE 0.9% 1,000 ML IV SCH (18:30)
[2023-08-07] MEDS: SODIUM CHLORIDE 0.9% 1,000 ML IV SCH ×3 (00:58→15:43)
[2023-08-07 06:13] LABS: Hemoglobin 11.1 g/dl (14.0-18.0); Mean Corpuscular Hgb Conc 33.6 g/dL (32.0-36.0); Mean Corpuscular Volume 83.1 fL (80.0-100.0); Mean Platelet Volume 9.4 fL (9.4-12.4); Platelet Count 186 K/uL (130-400); RDW Coefficient of Variation 19.3 % (11.5-14.5); RDW Standard Deviation 58.4 fL (36.4-46.3); Red Blood Count 3.97 M/uL (4.70-6.10); White Blood Count 6.09 K/ul (4.8-10.8)
[2023-08-07 06:45] LABS: BUN Creatinine Ratio 17.9 (10-20); Est GFR (African American) 71.8 ml/min; Est GFR (Non-African American) 61.9 ml/min; Magnesium 1.8 mg/dl (1.7-2.4); Potassium 3.7 mmol/L (3.5-5.1)
[2023-08-07] MEDS: UMECLIDINIUM/VILANTEROL 62.5/25MCG 7 PUFFS/INHALER INH SCH (08:20)
[2023-08-07] MEDS: METOPROLOL SUCC 25MG EXT REL TAB PO SCH (08:21)
[2023-08-07] MEDS: AMOXICILLIN/CLAVULANATE 875 MG TAB PO SCH ×2 (09:16→16:27)
[2023-08-07 10:03] LABS: Estimated Average Glucose 128 mg/dl; Hemoglobin A1C 6.1 % (4.5-5.6)
--- NOTE | 2023-08-07 14:06 | Cardiology Progress Note ---
Date of Service August 07, 2023 Assessment & Plan (1) Dizziness: (2) Elevated troponin: (3) PAF (paroxysmal atrial fibrillation): (4) RBBB: (5) Ischemic heart disease: Plan Dizziness. History most suggestive of symptomatic orthostatic hypotension. + Limited oral intake noted, ? malnutrition. Increase oral hydration. Discontinue lisinopril. Consider discontinuation of BuSpar and Trazodone, Re: Dizziness Elevated troponin. Minimal elevation. Patient asymptomatic in regards to overt angina symptoms. Suspect multifactorial etiology, secondary to trauma (fall on the chest), paroxysmal atrial fibrillation, pulmonary disease, renal dysfunction. Paroxysmal atrial fibrillation. Asymptomatic. Recommend resumption of low dose metoprolol succinate 25 mg/day. Risks of anticoagulation currently outweigh benefit. Recommend against the use of antiarrhythmic therapy (amiodarone) given asymptomatic status, underlying pulmonary issues, prolonged QTc (chronic right bundle branch block) ASCVD. Stable. Resume ASA 81 mg/day as soon as able. Dyslipidemia. Atorvastatin 40 mg/day on hold. 08/07/2023 Recommendations as above. Appears hemodynamically stable and would continue beta-angela with increased with p.m. dose, stop lisinopril Continue telemetry paroxysmal atrial fibrillation previously present Eliquis remains contraindicated though may reconsider in 2 to 4-week. Gait instability concern Admission and Anticipated Discharge Date Admission Date: August 05, 2023 Subjective Patient seen and examined, chart and telemetry reviewed. Rhythm sinus tach with PACs No chest pains or since Low-grade fever today Physical Exam Physical Exam: General: A&Ox3. NAD. HEENT: Ecchymotic left eye. PER. Neck: No carotid bruits. No JVD. Heart: Regular at 100 bpm. Systolic ejection murmur. No diastolic murmur. Lungs: Clear to auscultation anterorly Abdomen: +BS. Soft. Nontender. No masses or organomegaly. Extremities: No clubbing, cyanosis, or edema. Limited neurological examination is without focal deficits. Pulses: Posterior tibial=1/4. Results & Data Vital Signs (Past 12 Hours) Vital Signs Temp Pulse Pulse Resp BP Pulse Ox O2 Del Method 08/07/23 11:44 37.8 C H 93 H 19 139/75 93 Room Air 08/07/23 10:09 108 H 08/07/23 07:41 37.5 C 99 H 19 124/72 95 Room Air 10/07/23 03:22 37.7 C H 98 H 18 130/76 95 Room Air Diagnostic Findings Echocardiogram 03/16/2023 Tachycardia present during the echocardiogram with average ventricular rate in the range of 100-110 beats per minute. Although sinus tachycardia is a possibility, Doppler findings and rhythm strips suggest possible atrial fibrillation or atrial flutter. The basal inferior wall is akinetic. The mid inferior wall and basal inferoseptum are hypokinetic. The qualitative LV ejection Fraction = 60-65%. The Mild mitral regurgitation is present. Normal IVC size and collapsability with sniff indicates a normal right atrial pressure of 3 mmHg. Significant tricuspid regurgitation is absent. The spectral Doppler signal is inadequate to calculate right ventricular and pulmnary artery systolic pressure.. Normal pulmonary pressures are suggested by 2-D echo findings. Compared to the report of the prior study dated 11/22/2015, right coronary artery territory wall motion abnormalities noted at the time of the previous study persist. Hyperdynamic systolic function however is noted in the remaining segments. Tachycardia present on the current study as described above.
--- NOTE | 2023-08-07 17:15 | Hospitalist Progress Note ---
Date of Service August 07, 2023 Assessment & Plan (1) Recurrent falls: Plan: Recurrent falls Dizziness likely orthostatic hypotension DD: Rule out arrhythmias --CT head:There is no hemorrhage, mass effect, or evidence of acute territorial ischemia by CT criteria. Fractures of the left orbit and left maxillary sinus are again noted. -- Neck CT:Degenerative changes are seen in the cervical spine without evidence of acute fracture. Please see CT cervical spine for findings of skull fractures. -- Fall precautions Monitor on telemetry PT OT as able Lisinopril discontinued IV fluids as needed Paroxysmal atrial fibrillation Right bundle branch block ? H/O P.afib Normal TSH Hold Eliquis for now Resume Eliquis as able: Risks Vs Benefit to be assessed--in 2 to 4 weeks as outpatient Continue metoprolol: 25 mg QAM, 12.5 mg HS Appreciate cardiology input (2) Left orbit fracture: Plan: Closed fracture, nondepressed on films without evidence of visual involvement/globe rupture. Secondary to fall --Face CT:Nondepressed left orbital floor fracture. Fracture also involves the medial and lateral cain of the left orbit. There are comminuted fractures to the anterior and posterior cain of the left maxillary antrum, with layering blood products within the sinus. There is likely fracture of the left frontal process of the maxilla. The right orbit is intact and orbital contents are normal as imaged. -- Consulted oral maxillofacial surgery Supportive care (3) Closed left maxillary fracture: Plan: Closed traumatic fracture. Consulted oral maxillofacial surgery Empirically was started on Augmentin (4) Rhabdomyolysis: Plan: Traumatic rhabdomyolysis Elevated CK levels Mild troponin elevation likely secondary to rhabdo Hold statin Monitor renal function Continue IV fluids CK levels improving BRINA on CKD III Cr elevation likely due to rhabdo lisinopril discontinued Monitor renal function Avoid nephrotoxic agents as able Cr back to baseline (5) Right shoulder injury: Plan: Right shoulder x-ray:No acute bony abnormality is identified. Fall precautions Pain control (6) Acute kidney injury superimposed on chronic kidney disease: Plan: Management as above (7) Non-small cell carcinoma of lung: Plan: Follows with Dr. 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) Continue Aspirin, Metoprolol Resume statin as able DVT Px: Heparin SQ Code Status DNR/DNI Disposition PT OT prior to discharge Patient lives alone at home Case management to help with discharge planning Admission and Anticipated Discharge Date Admission Date: August 05, 2023 Subjective Patient is seen and examined at bedside And denies any dizziness today Noted to have sinus tachycardia with PACs on monitor Low-grade fever today Denies any chest pain, dyspnea, abdominal pain Review of Systems Review of Systems: All systems reviewed & are unremarkable except as noted in Subjective Physical Exam Physical Exam: Physical Exam: Vitals signs as noted above General Appearance:Thin, frail, Elderly, no apparent distress Head: normocephalic, Atraumatic Eyes: normal inspection, EOMI, L eye periorbital ecchymosis, tender Neck: supple, Trachea midline Respiratory/Chest: Normal breath sounds, CTA, No accessory muscle use Cardiovascular: Irregularly irregular, No murmur Abdomen/GI:Soft, Non tender, Bowel sounds present Extremities/Musculoskeletal:normal inspection, no edema Neurologic/Psych:AAOX3, grossly no focal neurological deficits Skin: normal color, warm Results & Data Results & Data Vital Signs (Past 12 Hours) Vital Signs Temp Pulse Pulse Resp BP Pulse Ox O2 Del Method 08/07/23 15:51 81 08/07/23 15:28 36.9 C 91 H 19 152/79 H Room Air 08/07/23 11:44 37.8 C H 93 H 19 139/75 93 Room Air 08/07/23 10:09 108 H 08/07/23 07:41 37.5 C 99 H 19 124/72 95 Room Air Laboratory Results Short CBC 08/07/23 Range/Units 05:56 WBC 6.09 (4.8-10.8) K/ul Hgb 11.1 L (14.0-18.0) g/dl Hct 33.0 L (42.0-52.0) % Plt Count 186 (130-400) K/uL BMP 08/07/23 05:56 Sodium 141 Potassium 3.7 Chloride 114 H Carbon Dioxide 21 BUN 19 Creatinine 1.06 Glucose 99 Calcium 8.0 L Cardiac Enzymes 08/07/23 Range/Units 05:56 Total Creatine Kinase 268 H (30-223) U/L
[2023-08-07] MEDS: HEPARIN SOD 5,000 UNIT/0.5 ML VIAL SQ SCH (21:55)
[2023-08-07] MEDS: METOPROLOL SUCC 50MG EXT REL TAB PO SCH (21:55)
[2023-08-08] MEDS: SODIUM CHLORIDE 0.9% 1,000 ML IV SCH ×3 (00:29→17:07)
[2023-08-08 07:06] LABS: Calcium 7.9 mg/dl (8.6-10.3); Potassium 3.9 mmol/L (3.5-5.1)
[2023-08-08 07:11] LABS: Creatinine Clr Calc Pharmacy 46.7 ml/min; Est GFR (Non-African American) 66.4 ml/min
[2023-08-08] MEDS: AMOXICILLIN/CLAVULANATE 875 MG TAB PO SCH ×2 (08:00→17:06)
[2023-08-08] MEDS: HEPARIN SOD 5,000 UNIT/0.5 ML VIAL SQ SCH ×2 (08:00→21:58)
[2023-08-08] MEDS: UMECLIDINIUM/VILANTEROL 62.5/25MCG 7 PUFFS/INHALER INH SCH (08:01)
[2023-08-08 08:04] LABS: Hematocrit (blood only) 29.4 % (42.0-52.0); Hemoglobin 9.6 g/dl (14.0-18.0); Mean Corpuscular Hemoglobin 27.8 pg (25.0-34.0); Mean Corpuscular Hgb Conc 32.7 g/dL (32.0-36.0); Mean Corpuscular Volume 85.2 fL (80.0-100.0); Mean Platelet Volume 9.5 fL (9.4-12.4); Platelet Count 160 K/uL (130-400); RDW Coefficient of Variation 19.2 % (11.5-14.5); RDW Standard Deviation 59.5 fL (36.4-46.3); Red Blood Count 3.45 M/uL (4.70-6.10); White Blood Count 4.94 K/ul (4.8-10.8)
[2023-08-08] MEDS: METOPROLOL SUCC 25MG EXT REL TAB PO SCH (10:12)
--- NOTE | 2023-08-08 14:18 | Cardiology Progress Note ---
Date of Service August 08, 2023 Assessment & Plan (1) Dizziness: (2) Elevated troponin: (3) PAF (paroxysmal atrial fibrillation): (4) RBBB: (5) Ischemic heart disease: Plan Dizziness. History most suggestive of symptomatic orthostatic hypotension. + Limited oral intake noted, ? malnutrition. Increase oral hydration. Discontinue lisinopril. Consider discontinuation of BuSpar and Trazodone, Re: Dizziness Elevated troponin. Minimal elevation. Patient asymptomatic in regards to overt angina symptoms. Suspect multifactorial etiology, secondary to trauma (fall on the chest), paroxysmal atrial fibrillation, pulmonary disease, renal dysfunction. Paroxysmal atrial fibrillation. Asymptomatic. Recommend resumption of low dose metoprolol succinate 25 mg/day. Risks of anticoagulation currently outweigh benefit. Recommend against the use of antiarrhythmic therapy (amiodarone) given asymptomatic status, underlying pulmonary issues, prolonged QTc (chronic right bundle branch block) ASCVD. Stable. Resume ASA 81 mg/day as soon as able. Dyslipidemia. Atorvastatin 40 mg/day on hold. 08/07/2023 Recommendations as above. Appears hemodynamically stable and would continue beta-angela with increased with p.m. dose, stop lisinopril Continue telemetry paroxysmal atrial fibrillation previously present Eliquis remains contraindicated though may reconsider in 2 to 4-week. Gait instability concern Admission and Anticipated Discharge Date Admission Date: August 05, 2023 Subjective Patient seen and examined, chart, medications, telemetry reviewed. Physical Exam Constitutional: no acute distress Results & Data Vital Signs (Past 12 Hours) Vital Signs Temp Pulse Pulse Resp BP BP Pulse Ox 08/08/23 11:27 36.9 C 74 18 112/66 95 08/08/23 07:24 37.5 C 82 19 109/54 L 99 08/08/23 07:07 85 08/08/23 04:47 88 08/08/23 02:55 36.8 C 88 18 144/68 H 93 O2 Del Method 08/08/23 11:27 Room Air 08/08/23 07:24 Room Air 08/08/23 07:07 08/08/23 04:47 08/08/23 02:55 Room Air Laboratory Results Laboratory Results - last 24 hr 08/08/23 08/08/23 06:05 07:27 WBC 4.94 RBC 3.45 L Hgb 9.6 L Hct 29.4 L MCV 85.2 MCH 27.8 MCHC 32.7 RDW Std Deviation 59.5 H RDW Coeff of Ana 19.2 H Plt Count 160 MPV 9.5 Sodium 139 Potassium 3.9 Chloride 113 H Carbon Dioxide 18 L Anion Gap 8 BUN 15 Creatinine 1.00 Est Cr Clr Drug Dosing 46.7 Est GFR ( Amer) 77.0 Est GFR (Non-Af Amer) 66.4 BUN/Creatinine Ratio 15.0 Glucose 85 Calcium 7.9 L Total Creatine Kinase 230 H
--- NOTE | 2023-08-08 16:08 | Hospitalist Progress Note ---
Date of Service August 08, 2023 Assessment & Plan (1) Recurrent falls: Plan: Recurrent falls Dizziness likely orthostatic hypotension DD: Rule out arrhythmias --CT head:There is no hemorrhage, mass effect, or evidence of acute territorial ischemia by CT criteria. Fractures of the left orbit and left maxillary sinus are again noted. -- Neck CT:Degenerative changes are seen in the cervical spine without evidence of acute fracture. Please see CT cervical spine for findings of skull fractures. -- Fall precautions Monitor on telemetry PT OT as able Lisinopril discontinued IV fluids as needed Plan to discharge to rehab facility as able Paroxysmal atrial fibrillation Right bundle branch block ? H/O P.afib Normal TSH Hold Eliquis for now Resume Eliquis as able: Risks Vs Benefit to be assessed--in 2 to 4 weeks as o utpatient Continue metoprolol: 25 mg QAM, 12.5 mg HS Appreciate cardiology input (2) Left orbit fracture: Plan: Closed fracture, nondepressed on films without evidence of visual involvement/globe rupture. Secondary to fall --Face CT:Nondepressed left orbital floor fracture. Fracture also involves the medial and lateral cain of the left orbit. There are comminuted fractures to the anterior and posterior cain of the left maxillary antrum, with layering blood products within the sinus. There is likely fracture of the left frontal process of the maxilla. The right orbit is intact and orbital contents are normal as imaged. -- Consulted oral maxillofacial surgery Supportive care (3) Closed left maxillary fracture: Plan: Closed traumatic fracture. Consulted oral maxillofacial surgery Empirically was started on Augmentin (4) Rhabdomyolysis: Plan: Traumatic rhabdomyolysis Elevated CK levels Mild troponin elevation likely secondary to rhabdo Hold statin Monitor renal function Continue IV fluids CK levels better BRINA on CKD III Cr elevation likely due to rhabdo lisinopril discontinued Monitor renal function Avoid nephrotoxic agents as able Cr back to baseline (5) Right shoulder injury: Plan: Right shoulder x-ray:No acute bony abnormality is identified. Fall precautions Pain control (6) Acute kidney injury superimposed on chronic kidney disease: Plan: Management as above (7) Non-small cell carcinoma of lung: Plan: Follows with Dr. 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) Continue Aspirin, Metoprolol Resume statin as able DVT Px: Heparin SQ Code Status DNR/DNI Disposition Rhab as able Patient lives alone at home Case management to help with discharge planning Admission and Anticipated Discharge Date Admission Date: August 05, 2023 Subjective Patient is seen and examined at bedside States feeling well today Denies any dizziness Eager to get discharged Offers no complaints Denies any chest pain, dyspnea, abdominal pain Review of Systems Review of Systems: All systems reviewed & are unremarkable except as noted in Subjective Physical Exam Physical Exam: Physical Exam: Vitals signs as noted above General Appearance:Thin, frail, Elderly, no apparent distress Head: normocephalic, Atraumatic Eyes: normal inspection, EOMI, L eye periorbital ecchymosis, tender Neck: supple, Trachea midline Respiratory/Chest: Normal breath sounds, CTA, No accessory muscle use Cardiovascular: Irregularly irregular, No murmur Abdomen/GI:Soft, Non tender, Bowel sounds present Extremities/Musculoskeletal:normal inspection, no edema Neurologic/Psych:AAOX3, grossly no focal neurological deficits Skin: normal color, warm Results & Data Results & Data Vital Signs (Past 12 Hours) Vital Signs Temp Pulse Pulse Resp BP BP Pulse Ox 08/08/23 15:27 36.6 C 79 18 151/66 H 94 08/08/23 11:27 36.9 C 74 18 112/66 95 08/08/23 07:24 37.5 C 82 19 109/54 L 99 08/08/23 07:07 85 08/08/23 04:47 88 O2 Del Method 08/08/23 15:27 Room Air 08/08/23 11:27 Room Air 08/08/23 07:24 Room Air 08/08/23 07:07 08/08/23 04:47 Laboratory Results Short CBC 08/08/23 Range/Units 07:27 WBC 4.94 (4.8-10.8) K/ul Hgb 9.6 L (14.0-18.0) g/dl Hct 29.4 L (42.0-52.0) % Plt Count 160 (130-400) K/uL BMP 08/08/23 06:05 Sodium 139 Potassium 3.9 Chloride 113 H Carbon Dioxide 18 L BUN 15 Creatinine 1.00 Glucose 85 Calcium 7.9 L Cardiac Enzymes 08/08/23 Range/Units 06:05 Total Creatine Kinase 230 H (30-223) U/L
[2023-08-08] MEDS: METOPROLOL SUCC 50MG EXT REL TAB PO SCH (21:57)
[2023-08-09 07:14] LABS: Hematocrit (blood only) 31.1 % (42.0-52.0); Hemoglobin 10.4 g/dl (14.0-18.0); Mean Corpuscular Hgb Conc 33.4 g/dL (32.0-36.0); Mean Corpuscular Volume 83.6 fL (80.0-100.0); Mean Platelet Volume 9.3 fL (9.4-12.4); Platelet Count 153 K/uL (130-400); RDW Coefficient of Variation 18.6 % (11.5-14.5); RDW Standard Deviation 57.1 fL (36.4-46.3); Red Blood Count 3.72 M/uL (4.70-6.10); White Blood Count 5.18 K/ul (4.8-10.8)
[2023-08-09 07:26] LABS: BUN Creatinine Ratio 15.6 (10-20); Calcium 7.9 mg/dl (8.6-10.3); Creatinine Clr Calc Pharmacy 49.7 ml/min; Est GFR (African American) 87.5 ml/min; Est GFR (Non-African American) 75.5 ml/min; Potassium 3.6 mmol/L (3.5-5.1)
[2023-08-09] MEDS: UMECLIDINIUM/VILANTEROL 62.5/25MCG 7 PUFFS/INHALER INH SCH (08:16)
[2023-08-09] MEDS: AMOXICILLIN/CLAVULANATE 875 MG TAB PO SCH ×2 (08:16→16:51)
[2023-08-09] MEDS: SODIUM CHLORIDE 0.9% 1,000 ML IV SCH (08:55)
--- NOTE | 2023-08-09 09:05 | XRay Report ---
XR chest 1V portable CLINICAL HISTORY: Fever. COMPARISON STUDY: Chest radiograph August 05, 2023. PET/CT March 17, 2023. FINDINGS: No pneumothorax or pleural effusion is identified. There is mild elevation of the right hem idiaphragm. The previously described right lower lobe lesion is no longer identified. There are suspe cted patchy right lung opacities with subtle asymmetric interstitial thickening within the right lung . Cardiomediastinal silhouette is stable. IMPRESSION: 1. Patchy asymmetric right lung airspace opacities with subtle interstitial thickening. The findings may reflect an infectious process. Post radiation change could appear similar. 2. Previously described right lower lobe lesion not identified on radiography. ACT 112: Negative or not required by law. Electronically signed by: Trung Castro M.D. 08/09/2023 9:03 AM
[2023-08-09] MEDS: HEPARIN SOD 5,000 UNIT/0.5 ML VIAL SQ SCH ×2 (09:39→21:46)
[2023-08-09] MEDS: METOPROLOL SUCC 25MG EXT REL TAB PO SCH (09:39)
[2023-08-09 13:23] LABS: Appearance Urine Clear (Clear); Bacteria Urine Automated Negative (Negative); Bilirubin Urine Negative (Negative); Blood Urine Negative (Negative); Color Urine Yellow; Epithelial Cell Urine Auto 0-5 /lpf (0-5); Glucose Urine UA Negative (Negative); Ketones Urine Negative (Negative); Leukocyte Esterase Urine Negative (Negative); Nitrite Urine Negative (Negative); Protein Urine Trace (Negative); RBC Urine Automated 0-4 /hpf (0-4); Specific Gravity Urine 1.017 (1.000-1.030); Urobilinogen Urine Negative (Negative); pH Urine 5.5 (4.5-7.5)
--- NOTE | 2023-08-09 15:34 | Hospitalist Progress Note ---
Date of Service August 09, 2023 Assessment & Plan (1) Recurrent falls: Plan: Recurrent falls Dizziness likely orthostatic hypotension DD: Rule out arrhythmias --CT head:There is no hemorrhage, mass effect, or evidence of acute territorial ischemia by CT criteria. Fractures of the left orbit and left maxillary sinus are again noted. -- Neck CT:Degenerative changes are seen in the cervical spine without evidence of acute fracture. Please see CT cervical spine for findings of skull fractures. -- Fall precautions Monitor on telemetry PT OT as able Lisinopril discontinued IV fluids as needed Patient and family agrees that patient will not be able to live by himself currently Plan to discharge to rehab facility as able Fever Hypotension No obvious source of infection ? Atelectasis UA not suggestive of UTI Chest x-ray showed right lung airspace opacities but likely secondary to past radiation Patient denies any respiratory symptoms currently Blood cultures obtained Will consider to restart IV fluids as needed Check procalcitonin Incentive spirometry Paroxysmal atrial fibrillation Right bundle branch block ? H/O P.afib Normal TSH Hold Eliquis for now Resume Eliquis as able: Risks Vs Benefit to be assessed--in 2 to 4 weeks as outpatient Continue metoprolol: 25 mg QAM, 12.5 mg HS Appreciate cardiology input (2) Left orbit fracture: Plan: Closed fracture, nondepressed on films without evidence of visual involvement/globe rupture. Secondary to fall --Face CT:Nondepressed left orbital floor fracture. Fracture also involves the medial and lateral cain of the left orbit. There are comminuted fractures to the anterior and posterior cain of the left maxillary antrum, with layering blood products within the sinus. There is likely fracture of the left frontal process of the maxilla. The right orbit is intact and orbital contents are normal as imaged. -- Consulted oral maxillofacial surgery Supportive care (3) Closed left maxillary fracture: Plan: Closed traumatic fracture. Consulted oral maxillofacial surgery Empirically was started on Augmentin (4) Rhabdomyolysis: Plan: Traumatic rhabdomyolysis Elevated CK levels Mild troponin elevation likely secondary to rhabdo Hold statin Monitor renal function Received IV fluids CK levels normalized BRINA on CKD III Cr elevation likely due to rhabdo lisinopril discontinued Monitor renal function Avoid nephrotoxic agents as able Cr back to baseline (5) Right shoulder injury: Plan: Right shoulder x-ray:No acute bony abnormality is identified. Fall precautions Pain control (6) Acute kidney injury superimposed on chronic kidney disease: Plan: Management as above (7) Non-small cell carcinoma of lung: Plan: Follows with Dr. 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) Continue Aspirin, Metoprolol Resume statin as able DVT Px: Heparin SQ Code Status DNR/DNI Disposition Rhab as able Patient lives alone at home Case management to help with discharge planning Admission and Anticipated Discharge Date Admission Date: August 05, 2023 Subjective Patient is seen and examined at bedside Patient has been fever at bedtime BP low today Patient offers no new complaints Discussed with patient's family today Patient agrees to go to rehab facility Denies any chest pain, dyspnea, abdominal pain, dizziness, nausea Review of Systems Review of Systems: All systems reviewed & are unremarkable except as noted in Subjective Physical Exam Physical Exam: Physical Exam: Vitals signs as noted above General Appearance:Thin, frail, Elderly, no apparent distress Head: normocephalic, Atraumatic Eyes: normal inspection, EOMI, L eye periorbital ecchymosis, tender Neck: supple, Trachea midline Respiratory/Chest: Normal breath sounds, CTA, No accessory muscle use Cardiovascular: Irregularly irregular, No murmur Abdomen/GI:Soft, Non tender, Bowel sounds present Extremities/Musculoskeletal:normal inspection, no edema Neurologic/Psych:AAOX3, grossly no focal neurological deficits Skin: normal color, warm Results & Data Results & Data Vital Signs (Past 12 Hours) Vital Signs Temp Pulse Pulse Resp BP Pulse Ox O2 Del Method 08/09/23 11:14 37.4 C 86 18 91/54 L 93 Room Air 08/09/23 07:49 76 08/09/23 07:05 36.9 C 70 18 122/73 92 Room Air Laboratory Results Short CBC 08/09/23 Range/Units 06:30 WBC 5.18 (4.8-10.8) K/ul Hgb 10.4 L (14.0-18.0) g/dl Hct 31.1 L (42.0-52.0) % Plt Count 153 (130-400) K/uL BMP 08/09/23 06:30 Sodium 137 Potassium 3.6 Chloride 109 H Carbon Dioxide 22 BUN 14 Creatinine 0.90 Glucose 91 Calcium 7.9 L Cardiac Enzymes 08/09/23 Range/Units 06:30 Total Creatine Kinase 140 (30-223) U/L Urine 08/09/23 Range/Units 12:52 Urine Color Yellow Urine Appearance Clear (Clear) Urine pH 5.5 (4.5-7.5) Ur Specific [place] 1.017 (1.000-1.030) Urine Protein Trace H (Negative) Urine Glucose (UA) Negative (Negative)
[2023-08-09] MEDS: METOPROLOL SUCC 50MG EXT REL TAB PO SCH (21:47)
[2023-08-10 06:50] LABS: Hematocrit (blood only) 29.1 % (42.0-52.0); Mean Corpuscular Hemoglobin 27.9 pg (25.0-34.0); Mean Corpuscular Hgb Conc 34.4 g/dL (32.0-36.0); Mean Corpuscular Volume 81.3 fL (80.0-100.0); Mean Platelet Volume 9.9 fL (9.4-12.4); Platelet Count 189 K/uL (130-400); RDW Coefficient of Variation 18.6 % (11.5-14.5); RDW Standard Deviation 55.6 fL (36.4-46.3); Red Blood Count 3.58 M/uL (4.70-6.10); White Blood Count 5.02 K/ul (4.8-10.8)
[2023-08-10 07:26] LABS: Calcium 7.9 mg/dl (8.6-10.3); Creatinine Clr Calc Pharmacy 48.3 ml/min; Est GFR (Non-African American) 71.6 ml/min; Potassium 3.5 mmol/L (3.5-5.1)
--- NOTE | 2023-08-10 08:21 | Oral/Maxillofacial Progress Nt ---
Date of Service August 10, 2023 Assessment & Plan Admission and Anticipated Discharge Date Admission Date: August 05, 2023 Subjective I followed up and evaluated Librado on Aug 09 in his hospital room. He has some resolving ecchymosis but no sequela from the fracture, the left eye is clear with excellent ROM. No bleeding, sinus issues , no complaints. Based on the CT scan findings and clinically appearance no treatment is needed Results & Data Vital Signs (Past 12 Hours) Vital Signs Temp Pulse Pulse Resp BP Pulse Ox O2 Del Method 08/10/23 07:29 37.3 C 82 16 129/67 92 Room Air 08/10/23 07:36 74 08/10/23 03:43 36.8 C 86 18 104/64 94 Room Air 08/10/23 00:14 86 08/10/23 00:07 36.7 C 85 18 114/67 94 Room Air PG Care Time/CCT Total # of Minutes Spent Total Time Spent with Patient: Total time spent is greater than 50% in coordination of care (as documented) at patient's floor/unit and/or counseling patient: Coding Level of Care Code None Diagnoses
[2023-08-10] MEDS: AMOXICILLIN/CLAVULANATE 875 MG TAB PO SCH ×2 (09:01→17:36)
[2023-08-10] MEDS: HEPARIN SOD 5,000 UNIT/0.5 ML VIAL SQ SCH ×2 (09:02→20:13)
[2023-08-10] MEDS: UMECLIDINIUM/VILANTEROL 62.5/25MCG 7 PUFFS/INHALER INH SCH (09:03)
[2023-08-10] MEDS: METOPROLOL SUCC 25MG EXT REL TAB PO SCH (09:06)
--- NOTE | 2023-08-10 16:40 | Hospitalist Progress Note ---
Date of Service August 10, 2023 Assessment & Plan (1) Recurrent falls: Plan: Recurrent falls Dizziness likely orthostatic hypotension DD: Rule out arrhythmias --CT head:There is no hemorrhage, mass effect, or evidence of acute territorial ischemia by CT criteria. Fractures of the left orbit and left maxillary sinus are again noted. -- Neck CT:Degenerative changes are seen in the cervical spine without evidence of acute fracture. Please see CT cervical spine for findings of skull fractures. -- Fall precautions Monitor on telemetry PT OT as able Lisinopril discontinued IV fluids as needed Patient and family agrees that patient will not be able to live by himself currently Plan to discharge to rehab facility when accepted Case management working on placement Fever Hypotension No obvious source of infection ? Atelectasis UA not suggestive of UTI Chest x-ray showed right lung airspace opacities but likely secondary to past radiation Patient denies any respiratory symptoms currently Normal procalcitonin Blood cultures negative to date Continue Incentive spirometry Paroxysmal atrial fibrillation Right bundle branch block ? H/O P.afib Normal TSH Hold Eliquis for now Resume Eliquis as able: Risks Vs Benefit to be assessed--in 2 to 4 weeks as outpatient Continue metoprolol: 25 mg QAM, 12.5 mg HS Appreciate cardiology input (2) Left orbit fracture: Plan: Closed fracture, nondepressed on films without evidence of visual involvement/globe rupture. Secondary to fall --Face CT:Nondepressed left orbital floor fracture. Fracture also involves the medial and lateral cain of the left orbit. There are comminuted fractures to the anterior and posterior cain of the left maxillary antrum, with layering blood products within the sinus. There is likely fracture of the left frontal process of the maxilla. The right orbit is intact and orbital contents are normal as imaged. -- Appreciate oromaxillofacial surgery Input Supportive/conservative care (3) Closed left maxillary fracture: Plan: Closed traumatic fracture. Consulted oral maxillofacial surgery Empirically was started on Augmentin (4) Rhabdomyolysis: Plan: Traumatic rhabdomyolysis Elevated CK levels Mild troponin elevation likely secondary to rhabdo Hold statin Monitor renal function Received IV fluids CK levels normalized BRINA on CKD III Cr elevation likely due to Rhabdo lisinopril discontinued Monitor renal function Avoid nephrotoxic agents as able Cr back to baseline (5) Right shoulder injury: Plan: Right shoulder x-ray:No acute bony abnormality is identified. Fall precautions Pain control (6) Acute kidney injury superimposed on chronic kidney disease: Plan: Management as above (7) Non-small cell carcinoma of lung: Plan: Follows with Dr. 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) Continue Aspirin, Metoprolol Resume statin as able DVT Px: Heparin SQ Code Status DNR/DNI Disposition Rhab when accepted Patient lives alone at home Case management to help with discharge planning Admission and Anticipated Discharge Date Admission Date: August 05, 2023 Subjective Patient is seen and examined at bedside Subjectively feels well today States having some cervical, shoulder discomfort this morning Denies any chest pain, dyspnea, abdominal pain, dizziness, nausea Waiting for rehab placement Review of Systems Review of Systems: All systems reviewed & are unremarkable except as noted in Subjective Physical Exam Physical Exam: Physical Exam: Vitals signs as noted above General Appearance:Thin, frail, Elderly, no apparent distress Head: normocephalic, Atraumatic Eyes: normal inspection, EOMI, L eye periorbital ecchymosis, tender Neck: supple, Trachea midline Respiratory/Chest: Normal breath sounds, CTA, No accessory muscle use Cardiovascular: Irregularly irregular, No murmur Abdomen/GI:Soft, Non tender, Bowel sounds present Extremities/Musculoskeletal:normal inspection, no edema Neurologic/Psych:AAOX3, grossly no focal neurological deficits Skin: normal color, warm Results & Data Results & Data Vital Signs (Past 12 Hours) Vital Signs Temp Pulse Pulse Resp BP Pulse Ox O2 Del Method 08/10/23 15:08 37.8 C H 89 20 116/65 96 Room Air 08/10/23 14:51 37.1 C 83 18 150/74 H 93 Room Air 08/10/23 11:18 36.3 C L 61 16 112/70 97 Room Air 08/10/23 07:29 37.3 C 82 16 129/67 92 Room Air 08/10/23 07:36 74 Laboratory Results Short CBC 08/10/23 Range/Units 06:07 WBC 5.02 (4.8-10.8) K/ul Hgb 10.0 L (14.0-18.0) g/dl Hct 29.1 L (42.0-52.0) % Plt Count 189 (130-400) K/uL [facility] 08/10/23 06:07 Sodium 138 Potassium 3.5 Chloride 109 H Carbon Dioxide 22 BUN 15 Creatinine 0.94 Glucose 88 Calcium 7.9 L
[2023-08-10] MEDS: ACETAMINOPHEN 325 MG TAB PO PRN (17:37)
[2023-08-10] MEDS: METOPROLOL SUCC 50MG EXT REL TAB PO SCH (20:14)
[2023-08-11] MEDS: AMOXICILLIN/CLAVULANATE 875 MG TAB PO SCH ×2 (08:52→17:30)
[2023-08-11] MEDS: UMECLIDINIUM/VILANTEROL 62.5/25MCG 7 PUFFS/INHALER INH SCH (08:52)
[2023-08-11] MEDS: METOPROLOL SUCC 25MG EXT REL TAB PO SCH (08:52)
[2023-08-11] MEDS: HEPARIN SOD 5,000 UNIT/0.5 ML VIAL SQ SCH ×2 (08:52→20:28)
--- NOTE | 2023-08-11 17:48 | Hospitalist Progress Note ---
Date of Service August 11, 2023 Assessment & Plan (1) Recurrent falls: Plan: Recurrent falls Dizziness likely orthostatic hypotension DD: Rule out arrhythmias --CT head:There is no hemorrhage, mass effect, or evidence of acute territorial ischemia by CT criteria. Fractures of the left orbit and left maxillary sinus are again noted. -- Neck CT:Degenerative changes are seen in the cervical spine without evidence of acute fracture. Please see CT cervical spine for findings of skull fractures. -- Fall precautions Monitor on telemetry PT OT as able Lisinopril discontinued IV fluids as needed Patient and family agrees that patient will not be able to live by himself currently Medically stable for discharge. Waiting for rehab placement Fever Hypotension No obvious source of infection ? Atelectasis UA not suggestive of UTI Chest x-ray showed right lung airspace opacities but likely secondary to past radiation Patient denies any respiratory symptoms currently Normal procalcitonin Blood cultures negative to date Continue Incentive spirometry Fever resolved Paroxysmal atrial fibrillation Right bundle branch block ? H/O P.afib Normal TSH Hold Eliquis for now Resume Eliquis as able: Risks Vs Benefit to be assessed--in 2 to 4 weeks as outpatient Continue metoprolol: 25 mg QAM, 12.5 mg HS Appreciate cardiology input (2) Left orbit fracture: Plan: Closed fracture, nondepressed on films without evidence of visual involvement/globe rupture. Secondary to fall --Face CT:Nondepressed left orbital floor fracture. Fracture also involves the medial and lateral cain of the left orbit. There are comminuted fractures to the anterior and posterior cain of the left maxillary antrum, with layering blood products within the sinus. There is likely fracture of the left frontal process of the maxilla. The right orbit is intact and orbital contents are normal as imaged. -- Appreciate oromaxillofacial surgery Input Supportive/conservative care (3) Closed left maxillary fracture: Plan: Closed traumatic fracture. Consulted oral maxillofacial surgery Empirically was started on Augmentin (4) Rhabdomyolysis: Plan: Traumatic rhabdomyolysis Elevated CK levels Mild troponin elevation likely secondary to rhabdo Hold statin Monitor renal function Received IV fluids CK levels normalized BRINA on CKD III Cr elevation likely due to Rhabdo lisinopril discontinued Monitor renal function Avoid nephrotoxic agents as able Cr back to baseline (5) Right shoulder injury: Plan: Right shoulder x-ray:No acute bony abnormality is identified. Fall precautions Pain control (6) Acute kidney injury superimposed on chronic kidney disease: Plan: Management as above (7) Non-small cell carcinoma of lung: Plan: Follows with Dr. 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) Continue Aspirin, Metoprolol Resume statin as able DVT Px: Heparin SQ Code Status DNR/DNI Disposition Rhab when accepted Patient lives alone at home Case management to help with discharge planning Admission and Anticipated Discharge Date Admission Date: August 05, 2023 Subjective Patient is seen and examined at bedside No new complaints Waiting for rehab placement Denies any chest pain, dyspnea, abdominal pain, dizziness, nausea Review of Systems Review of Systems: All systems reviewed & are unremarkable except as noted in Subjective Physical Exam Physical Exam: Physical Exam: Vitals signs as noted above General Appearance:Thin, frail, Elderly, no apparent distress Head: normocephalic, Atraumatic Eyes: normal inspection, EOMI, L eye periorbital ecchymosis, tender Neck: supple, Trachea midline Respiratory/Chest: Normal breath sounds, CTA, No accessory muscle use Cardiovascular: Irregularly irregular, No murmur Abdomen/GI:Soft, Non tender, Bowel sounds present Extremities/Musculoskeletal:normal inspection, no edema Neurologic/Psych:AAOX3, grossly no focal neurological deficits Skin: normal color, warm Results & Data Results & Data Vital Signs (Past 12 Hours) Vital Signs Temp Pulse Pulse Resp BP Pulse Ox O2 Del Method 08/11/23 14:36 36.9 C 81 18 110/69 95 Room Air 08/11/23 07:42 36.7 C 95 H 16 144/73 H 94 Room Air 08/11/23 06:06 36.7 C 83 18 109/74 94 Room Air
[2023-08-11] MEDS: METOPROLOL SUCC 50MG EXT REL TAB PO SCH (20:27)
[2023-08-12 08:21] LABS: Hematocrit (blood only) 33.5 % (42.0-52.0); Hemoglobin 11.3 g/dl (14.0-18.0); Mean Corpuscular Hgb Conc 33.7 g/dL (32.0-36.0); Mean Corpuscular Volume 83.1 fL (80.0-100.0); Mean Platelet Volume 9.5 fL (9.4-12.4); Platelet Count 212 K/uL (130-400); RDW Coefficient of Variation 18.5 % (11.5-14.5); RDW Standard Deviation 56.6 fL (36.4-46.3); Red Blood Count 4.03 M/uL (4.70-6.10); White Blood Count 5.24 K/ul (4.8-10.8)
[2023-08-12] MEDS: HEPARIN SOD 5,000 UNIT/0.5 ML VIAL SQ SCH ×2 (08:32→20:35)
[2023-08-12] MEDS: AMOXICILLIN/CLAVULANATE 875 MG TAB PO SCH ×2 (08:32→16:42)
[2023-08-12] MEDS: METOPROLOL SUCC 25MG EXT REL TAB PO SCH (08:32)
[2023-08-12 08:42] LABS: BUN Creatinine Ratio 16.7 (10-20); Calcium 8.6 mg/dl (8.6-10.3); Creatinine Clr Calc Pharmacy 44.3 ml/min; Est GFR (African American) 75.2 ml/min; Est GFR (Non-African American) 64.9 ml/min; Potassium 3.9 mmol/L (3.5-5.1)
[2023-08-12] MEDS: UMECLIDINIUM/VILANTEROL 62.5/25MCG 7 PUFFS/INHALER INH SCH (09:50)
[2023-08-12] MEDS ORDERED: GADOBUTROL 65ML VIAL IV ONE (13:00)
--- NOTE | 2023-08-12 13:32 | Magnetic Resonance Report ---
MRI OF THE BRAIN COMBO CLINICAL HISTORY: Change in mental status. History of lung cancer. COMPARISON STUDY: MRI of the brain dated 12/20/2020. CT of the brain dated 08/06/2023. TECHNIQUE: MRI of the brain was performed utilizing various T1 and T2-weighted sequences in the axial , sagittal, and coronal planes. Contrast-enhanced sequences were acquired following the administratio n of 6.5 cc of Gadavist. FINDINGS: Brain parenchyma: There is age-related involutional change noting advanced confluent subcortical and periventricular microangiopathic disease. There is no hemorrhage or mass effect. There is no restrict ed diffusion to suggest acute ischemia. Chronic right frontal and parietal lobe infarcts are unchange d. A tiny chronic lacunar infarct is also seen in the right cerebellar hemisphere. No enhancing mass lesion is identified on the postcontrast images. Ponce-white matter differentiation is preserved. No e xtra-axial fluid collection is seen. The cerebellar tonsils are normal in configuration. Ventricles, sulci, and cisterns: Prominent secondary to involutional change. Pituitary and sella: Unremarkable. Intracranial vasculature: Normal flow voids are maintained at the skull base. Orbits: The bony orbits are grossly intact. Orbital contents are normal in appearance noting bilatera l ocular lens implants. Sinuses and mastoids: There is mild to moderate mucosal thickening within the left maxillary antrum. The remaining paranasal sinuses are clear. There is a left mastoid effusion. The right mastoid air ce lls are clear. Calvarium: Unremarkable. Cervical cord: Partially visualized cervical spinal cord is normal in morphology and signal intensity . IMPRESSION: Senescent change as above with no acute intracranial abnormality identified. ACT 112: Negative or not required by law. Electronically signed by: Harsh Rm M.D. 08/12/2023 1:31 PM
--- NOTE | 2023-08-12 17:03 | Hospitalist Progress Note ---
Date of Service August 12, 2023 Assessment & Plan (1) Recurrent falls: Plan: Recurrent falls Dizziness likely orthostatic hypotension DD: Rule out arrhythmias --CT head:There is no hemorrhage, mass effect, or evidence of acute territorial ischemia by CT criteria. Fractures of the left orbit and left maxillary sinus are again noted. -- Neck CT:Degenerative changes are seen in the cervical spine without evidence of acute fracture. Please see CT cervical spine for findings of skull fractures. -- Fall precautions -- Brain MRI 08/12 per son's request due to increased confusion Senescent change as above with no acute intracranial abnormality identified. Monitor on telemetry PT OT as able Lisinopril discontinued IV fluids as needed Patient and family agrees that patient will not be able to live by himself currently Medically stable for discharge. Waiting for rehab placement Fever Hypotension No obvious source of infection ? Atelectasis UA not suggestive of UTI Chest x-ray showed right lung airspace opacities but likely secondary to past radiation Patient denies any respiratory symptoms currently Normal procalcitonin Blood cultures negative to date Continue Incentive spirometry Fever resolved Paroxysmal atrial fibrillation Right bundle branch block ? H/O P.afib Normal TSH Hold Eliquis for now Resume Eliquis as able: Risks Vs Benefit to be assessed--in 2 to 4 weeks as outpatient Continue metoprolol: 25 mg QAM, 12.5 mg HS Appreciate cardiology input (2) Left orbit fracture: Plan: Closed fracture, nondepressed on films without evidence of visual involvement/globe rupture. Secondary to fall --Face CT:Nondepressed left orbital floor fracture. Fracture also involves the medial and lateral cain of the left orbit. There are comminuted fractures to the anterior and posterior cain of the left maxillary antrum, with layering blood products within the sinus. There is likely fracture of the left frontal process of the maxilla. The right orbit is intact and orbital contents are normal as imaged. -- Appreciate oromaxillofacial surgery Input Supportive/conservative care (3) Closed left maxillary fracture: Plan: Closed traumatic fracture. Consulted oral maxillofacial surgery Empirically was started on Augmentin (4) Rhabdomyolysis: Plan: Traumatic rhabdomyolysis Elevated CK levels Mild troponin elevation likely secondary to rhabdo Hold statin Monitor renal function Received IV fluids CK levels normalized BRINA on CKD III -> resolved Cr elevation likely due to Rhabdo lisinopril discontinued Monitor renal function Avoid nephrotoxic agents as able Cr back to baseline (5) Right shoulder injury: Plan: Right shoulder x-ray:No acute bony abnormality is identified. Fall precautions Pain control (6) Acute kidney injury superimposed on chronic kidney disease: Plan: Management as above (7) Non-small cell carcinoma of lung: Plan: Follows with Dr. 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 Seem to have some delirium. Discussed with patient's family at bedside. Patient offers no new complaints. MRI brain showed no acute findings. Waiting for rehab placement. Physical Exam: Vitals signs as noted above General Appearance:Thin, frail, Elderly, no apparent distress Head: normocephalic, Atraumatic Eyes: normal inspection, EOMI, L eye periorbital ecchymosis, tender Neck: supple, Trachea midline Respiratory/Chest: Normal breath sounds, CTA, No accessory muscle use Cardiovascular: Irregularly irregular, No murmur Abdomen/GI:Soft, Non tender, Bowel sounds present Extremities/Musculoskeletal:normal inspection, no edema Neurologic/Psych:AAOX3, grossly no focal neurological deficits Skin: normal color, warm Recurrent falls Dizziness resolved Left orbital, maxillary fractures Rhabdomyolysis resolved BRINA resolved H/O non-small cell lung cancer --Stable for discharge. Plan to discharge when accepted to rehab facility. Reorient frequently to minimize delirium. I personally reviewed the record. Patient is interviewed and examined at bedside. Patient's care is coordinated with Kaci Hook PA-C. Please refer to the documentation above for details of patient's presentation and for discussion of other issues. Subjective Patient is seen and examined in 350-2 No new complaints Waiting for rehab placement Denies any chest pain, dyspnea, abdominal pain, dizziness, nausea Son at bedside mentions increased confusion since fall Review of Systems Review of Systems: All systems reviewed & are unremarkable except as noted in Subjective Physical Exam Physical Exam: General Appearance:Thin, frail, Elderly, no apparent distress Head: normocephalic, Atraumatic, hard of hearing Eyes: normal inspection, EOMI, L eye periorbital ecchymosis, TTP Neck: supple, Trachea midline Respiratory/Chest: Normal breath sounds, CTA, No accessory muscle use Cardiovascular: Irregularly irregular, No murmur Abdomen/GI:Soft, Non tender, Bowel sounds present Extremities/Musculoskeletal:normal inspection, no edema Neurologic/Psych:AAOX3, grossly no focal neurological deficits Skin: normal color, warm Results & Data Results & Data Vital Signs (Past 12 Hours) Vital Signs Temp Pulse Resp BP Pulse Ox O2 Del Method 08/12/23 15:18 36.4 C L 87 18 117/77 93 Room Air 08/12/23 07:15 36.6 C 79 17 107/63 93 Room Air Laboratory Results Short CBC 08/12/23 Range/Units 07:27 WBC 5.24 (4.8-10.8) K/ul Hgb 11.3 L (14.0-18.0) g/dl Hct 33.5 L (42.0-52.0) % Plt Count 212 (130-400) K/uL BMP 08/12/23 07:27 Sodium 138 Potassium 3.9 Chloride 107 Carbon Dioxide 25 BUN 17 Creatinine 1.02 Glucose 96 Calcium 8.6 Diagnostic Findings Abdomen/Pelvis CT 08/05/23 14:21 CT SCAN OF THE ABDOMEN AND PELVIS WITH IV CONTRAST CLINICAL HISTORY: Fall. COMPARISON STUDY: Abdominal ultrasound dated 07/16/2011. PET/CT dated 03/17/2023. TECHNIQUE: Following the IV administration of 90 cc of Optiray 320, CT scan of the abdomen and pelvis is performed from the lung bases to the proximal femora. Images are reviewed in the axial, sagittal, and coronal planes. IV contrast was administered without complication. A dose lowering technique was utilized adhering to the principles of ALARA. There is streak artifact from the arms which could not be elevated above the abdomen. FINDINGS: Lung bases: The heart is normal in size and without pericardial effusion. There is a 3.3 x 2.1 cm spiculated lesion at the right lung base seen on image #21. This may show central necrosis. Emphysematous changes observed. There is bibasilar scarring/atelectasis. No airspace consolidation typical for pneumonia or pleural effusion is identified. There is no basilar pneumothorax. A small hiatal hernia is noted. Liver: The contrast-enhanced liver is normal in size, contour, and attenuation. There is no intrahepatic biliary ductal dilatation. The hepatic veins and portal veins are patent. Scattered hepatic cysts measure up to 1.9 cm. Gallbladder: The gallbladder is distended and contains stones. There is no CT evidence of acute cholecystitis. Spleen: Normal in size and attenuation. Pancreas: Unremarkable. Adrenal glands: Unremarkable. Kidneys: The contrast enhanced kidneys demonstrate mild cortical atrophy and are without hydronephrosis. The kidneys enhance symmetrically. Bilateral renal cysts measure up to 4.7 cm. Additional subcentimeter cortical hypodensities also likely represent cysts but are too small for definitive characterization. Cortical scarring is seen in the left lower pole. Abdominal vasculature: There is moderate to advanced atherosclerotic calcification and ectasia of the abdominal aorta. Bowel: There is mild colonic diverticulosis without CT evidence of acute diverticulitis. No bowel obstruction is seen. Duodenal diverticula are noted. The appendix is well-visualized and normal. Peritoneum: There is no intraperitoneal free air or abdominal ascites. Lymphadenopathy: None. Pelvic viscera: The prostate gland is diminutive and heterogeneous. The bladder is normal as visualized. Skeletal structures: The skeletal structures are osteopenic. The lumbosacral spine, bony pelvis, and proximal femora appear intact. There is mild to moderate lumbosacral spondylosis. No lytic or blastic lesions are seen. IMPRESSION: 1. There is no evidence of solid organ injury in the abdomen or pelvis. 2. Emphysema and a spiculated right lower lobe mass lesion are again noted. A bronchogenic neoplasm remains the diagnosis of exclusion. 3. Cholelithiasis. 4. Additional findings as above. ACT 112: Positive. There are findings on this exam that require communication between the performing entity and the patient following Patient Test Result Information Act ([place] Act 112) guidelines. Electronically signed by: Harsh Rm M.D. 08/05/2023 4:[address] 08/05/23 14:21 CT cervical spine wo con CLINICAL HISTORY: fall on eliquis TECHNIQUE: Multidetector row helical CT of the cervical spine was performed without administration of intravenous contrast. Coronal and sagittal reformations were obtained. Automated dose lowering techniques and/or adjustment according to patient size were utilized for this exam. Comparison: None available at the time of this dictation. FINDINGS: No acute fractures or subluxations are identified. Degenerative changes are seen in the visualized spine. There is calcification of the transverse ligament. The alignment is normal. Partial visualization of fractures of the left maxillary sinus cain and soft tissue density in the sinus. Emphysema is seen in the visualized upper lungs. IMPRESSION: 1. Degenerative changes are seen in the cervical spine without evidence of acute fracture. 2. Please see CT cervical spine for findings of skull fractures. ACT 112: Negative or not required by law. Electronically signed by: Rico Enriquez M.D. 08/05/2023 4:26 PM Chest X-Ray 08/05/23 14:21 XR chest 1V portable HISTORY: 88 years-old Male Chest pain, nonspecific acute chest pain status post fall COMPARISON: 03/17/2023 TECHNIQUE: AP view of the chest FINDINGS: Cardiomediastinal and hilar silhouettes are within normal limits. Chronic interstitial coarsening. Ill-defined nodule within the basal right lower lobe previously measured at 4 cm. Emphysema. Degenerative changes of the shoulders and spine. IMPRESSION: 1. Emphysema with chronic interstitial coarsening. 2. Right lower lobe lesion redemonstrated, better characterized on the comparison PET/CT. ACT 112: Negative or not required by law. The above report was generated using voice recognition software. It may contain grammatical, syntax or spelling errors. Electronically signed by: Rodney Morataya M.D. 08/05/2023 3:[address] 08/05/23 14:21 CT SCAN OF THE FACIAL BONES WITHOUT IV CONTRAST CLINICAL HISTORY: Fall. COMPARISON STUDY: Orbital radiographs dated 12/20/2020. TECHNIQUE: High-resolution CT scan of the facial bones is performed. Images are reviewed in the axial, sagittal, and coronal planes. IV contrast was not administered for this examination. A dose lowering technique was utilized adhering to the principles of ALARA. FINDINGS: The skeletal structures are osteopenia. There is a nondepressed fracture of the left orbital floor. Fracture also involves the medial and l ateral cain of the left orbit. There are also comminuted fractures involving the anterior and posterior cain of the left maxillary sinus with depressed fragments. The right orbit is intact. Orbital contents are within normal limits noting bilateral ocular lens implant. There is likely fracture of the left frontal process of the maxilla. No depressed nasal bone fracture is seen. The zygomatic arches and pterygoid plates are preserved. The mandible is intact. The patient is edentulous. Advanced degenerative change is noted at the temporomandibular joints. There are layering blood products within the left maxillary antrum. There is mild mucosal thickening within the frontal sinuses. The remaining paranasal sinuses are clear. There is trace left mastoid effusion. The right mastoid air cells are well pneumatized. The visualized calvarium and upper cervical spine are maintained. Partially imaged brain parenchyma is within normal limits noting age-related involutional change. Calcified sialoliths are seen within the parotid glands. IMPRESSION: 1. Nondepressed left orbital floor fracture. Fracture also involves the medial and lateral cain of the left orbit. 2. There are comminuted fractures to the anterior and posterior cain of the left maxillary antrum, with layering blood products within the sinus. 3. There is likely fracture of the left frontal process of the maxilla. 4. The right orbit is intact and orbital contents are normal as imaged. ACT 112: Negative or not required by law. Electronically signed by: Harsh Rm M.D. 08/05/2023 4:[address] 08/05/23 14:21 CT head/brain wo con CLINICAL HISTORY: fall on eliquis Technique: Contiguous axial CT images of the head were acquired from the base of the skull to the vertex without intravenous contrast administration. Images were viewed in brain, subdural and bone windows. Automated dose lowering techniques and/or adjustment according to patient size were utilized for this exam. Comparison: Comparison is made to CT head 12/19/2020 Findings: Areas of decreased attenuation are present in the periventricular and subcortical white matter bilaterally consistent with small vessel ischemic disease. Generalized cerebral atrophy with commensurate enlargement of the ventricles, sulci, and cisterns is also present. There is no acute intracranial hemorrhage or evidence of acute territorial infarction. No shift of the midline structures, mass effect, or extra-axial abnormalities are shown. Atherosclerotic calcifications are present in the intracranial segments of the internal carotid arteries. Imaged portions of the paranasal sinuses and mastoid air cells are clear. The orbits appear normal. No calvarial fracture is seen. Fractures of the left ma xillary sinus cain partially visualized. Subcutaneous emphysema and swelling are seen in the left maxillary soft tissues. Impression: No acute intracranial hemorrhage, no evidence of acute territorial infarction or other acute intracranial disease process. Please see CT facial bones for detailed findings of left-sided facial fractures. ACT 112: Negative or not required by law. Electronically signed by: Rico Enriquez M.D. 08/05/2023 4:17 PM Pelvis X-Ray 08/05/23 14:21 XR pelvis 1-2V routine CLINICAL HISTORY: fall on eliquis TECHNIQUE: A single frontal view of the pelvis was obtained. Comparison: None available at the time of this dictation. FINDINGS: There is no evidence of an acute fracture. Degenerative changes are seen in the hip joints and lumbar spine. Vascular calcifications are noted. IMPRESSION: Degenerative changes without evidence of acute abnormality. ACT 112: Negative or not required by law. Electronically signed by: Rico Enriquez M.D. 08/05/2023 3:06 PM Shoulder X-Ray 08/05/23 20:03 RIGHT SHOULDER 3 VIEWS CLINICAL HISTORY: Fall. Right shoulder pain. FINDINGS: 3 views the right shoulder are obtained. No prior studies are available for comparison at the time of dictation. The skeletal structures are osteopenic. There is no radiographic evidence of fracture or dislocation. Mild arthritic change is seen at the glenohumeral and acromioclavicular joints. Superior subluxation of the humeral head suggests chronic rotator cuff injury. Mild soft tissue edema is seen superior to the AC joint. The visualized right lung parenchyma appears clear. IMPRESSION: No acute bony abnormality is identified. Electronically signed by: Harsh Rm M.D. 08/05/2023 9:[address] 08/06/23 07:00 CT SCAN OF THE BRAIN WITHOUT IV CONTRAST CLINICAL HISTORY: Head injury. COMPARISON STUDY: CT of the brain dated 08/05/2023. TECHNIQUE: Unenhanced axial CT scan of the brain is performed from the vertex to the skull base. A dose lowering technique was utilized adhering to the principles of ALARA. CT DOSE: 625.8 mGy.cm FINDINGS: Brain parenchyma: There is age-related involutional change noting moderate to advanced subcortical and periventricular microangiopathic disease. A small chronic infarct is seen in the high right frontal cortex. There is no hemorrhage, mass effect, or evidence of acute territorial ischemia by CT criteria. Ponce-white matter differentiation is preserved. No extra-axial fluid collection is seen. Ventricles, sulci, cisterns: Prominent secondary to involutional change. Intracranial vasculature: There is atherosclerotic calcification of the cavernous carotid and vertebral arteries. Calvarium: The skeletal structures are osteopenic. No depressed calvarial fracture is seen. Sinuses and mastoids: There are blood products within the left maxillary antrum. Mild mucosal thickening seen in the left frontal sinus and the left ethmoid sinuses. There is a small left mastoid effusion. The right mastoid air cells are well pneumatized. Orbits: Fractures of the left orbit and left maxillary sinus are again noted. Oral contents are normal as imaged noting bilateral ocular lens implants. IMPRESSION: 1. There is no hemorrhage, mass effect, or evidence of acute territorial ischemia by CT criteria. 2. Fractures of the left orbit and left maxillary sinus are again noted. ACT 112: Negative or not required by law. Electronically signed by: Harsh Rm M.D. 08/06/2023 8:19 AM Chest X-Ray 08/09/23 08:34 XR chest 1V portable CLINICAL HISTORY: Fever. COMPARISON STUDY: Chest radiograph August 05, 2023. PET/CT March 17, 2023. FINDINGS: No pneumothorax or pleural effusion is identified. There is mild elevation of the right hemidiaphragm. The previously described right lower lobe lesion is no longer identified. There are suspected patchy right lung opacities with subtle asymmetric interstitial thickening within the right lung. Cardiomediastinal silhouette is stable. IMPRESSION: 1. Patchy asymmetric right lung airspace opacities with subtle interstitial thickening. The findings may reflect an infectious process. Post radiation change could appear similar. 2. Previously described right lower lobe lesion not identified on radiography. ACT 112: Negative or not required by law. Electronically signed by: Trung Castro M.D. 08/09/2023 9:03 AM Brain MRI 08/12/23 11:45 MRI OF THE BRAIN COMBO CLINICAL HISTORY: Change in mental status. History of lung cancer. COMPARISON STUDY: MRI of the brain dated 12/20/2020. CT of the brain dated 08/06/2023. TECHNIQUE: MRI of the brain was performed utilizing various T1 and T2-weighted sequences in the axial, sagittal, and coronal planes. Contrast-enhanced sequences were acquired following the administration of 6.5 cc of Gadavist. FINDINGS: Brain parenchyma: There is age-related involutional change noting advanced confluent subcortical and periventricular microangiopathic disease. There is no hemorrhage or mass effect. There is no restricted diffusion to suggest acute ischemia. Chronic right frontal and parietal lobe infarcts are unchanged. A tiny chronic lacunar infarct is also seen in the right cerebellar hemisphere. No enhancing mass lesion is identified on the postcontrast images. Ponce-white matter differentiation is preserved. No extra-axial fluid collection is seen. The cerebellar tonsils are normal in configuration. Ventricles, sulci, and cisterns: Prominent secondary to involutional change. Pituitary and sella: Unremarkable. Intracranial vasculature: Normal flow voids are maintained at the skull base. Orbits: The bony orbits are grossly intact. Orbital contents are normal in appearance noting bilateral ocular lens implants. Sinuses and mastoids: There is mild to moderate mucosal thickening within the left maxillary antrum. The remaining paranasal sinuses are clear. There is a left mastoid effusion. The right mastoid air cells are clear. Calvarium: Unremarkable. Cervical cord: Partially visualized cervical spinal cord is normal in morphology and signal intensity. IMPRESSION: Senescent change as above with no acute intracranial abnormality identified. ACT 112: Negative or not required by law. Electronically signed by: Harsh Rm M.D. 08/12/2023 1:31 PM
[2023-08-12] MEDS: METOPROLOL SUCC 50MG EXT REL TAB PO SCH (20:35)
[2023-08-13] MEDS: AMOXICILLIN/CLAVULANATE 875 MG TAB PO SCH ×2 (09:07→16:46)
[2023-08-13] MEDS: UMECLIDINIUM/VILANTEROL 62.5/25MCG 7 PUFFS/INHALER INH SCH (09:07)
[2023-08-13] MEDS: METOPROLOL SUCC 25MG EXT REL TAB PO SCH (09:08)
[2023-08-13] MEDS: HEPARIN SOD 5,000 UNIT/0.5 ML VIAL SQ SCH ×2 (09:08→20:48)
[2023-08-13] MEDS: ACETAMINOPHEN 325 MG TAB PO PRN (16:46)
--- NOTE | 2023-08-13 18:10 | XRay Report ---
SINGLE VIEW CHEST CLINICAL HISTORY: Fever. FINDINGS: An AP, portable, upright chest radiograph is compared to study dated 08/09/2023. Correlation is made with radiation treatment planning CT dated 06/02/2023. The examination is degraded by portable technique and patient rotation. The heart is enlarged noting atherosclerotic calcification of the th oracic aorta. There is prominence of the pulmonary vasculature. Emphysema and chronic interstitial th ickening is similar to previous. Volume loss in the right lung is consistent with prior surgery. Mode rate space opacities in the right midlung are similar to previous. No large pleural effusion is seen. Foci of parenchyma scarring are noted throughout both lung. No pneumothorax is seen. The skeletal st ructures are osteopenic. The bony thorax is grossly intact. IMPRESSION: 1. Cardiomegaly with prominence of the pulmonary vasculature. Correlate clinically for evidence of fl uid overload/mild congestive change. 2. Emphysema with evidence of previous right-sided pulmonary resection. 3. Indeterminant airspace opacities in the right midlung are similar to previous. Correlate clinicall y for evidence of a mild pneumonitis. Radiographic follow-up to resolution is recommended. ACT 112: Negative or not required by law. Electronically signed by: Harsh Rm M.D. 08/13/2023 6:07 PM
--- NOTE | 2023-08-13 18:14 | Hospitalist Progress Note ---
Date of Service August 13, 2023 Assessment & Plan (1) Recurrent falls: Plan: Recurrent falls Dizziness likely orthostatic hypotension DD: Rule out arrhythmias --CT head:There is no hemorrhage, mass effect, or evidence of acute territorial ischemia by CT criteria. Fractures of the left orbit and left maxillary sinus are again noted. -- Neck CT:Degenerative changes are seen in the cervical spine without evidence of acute fracture. Please see CT cervical spine for findings of skull fractures. -- Fall precautions -- Brain MRI 08/12 per son's request due to increased confusion Senescent change as above with no acute intracranial abnormality identified. Monitor on telemetry PT OT as able Lisinopril discontinued IV fluids as needed Patient and family agrees that patient will not be able to live by himself currently Awaiting SNF placement - referral to [facility] pending Fever Hypotension Has had intermittent fever during admission - most recently this evening 1615 of 38.4 No obvious source of infection on previous workup including UA, CXR, blood cx, procal ? Atelectasis Evaluated patient this aftermoon and states he feels great, no CP, SOB, urinary sx Repeat UA, CXR, labs, repeat blood cultures all pending for infectious workup Paroxysmal atrial fibrillation Right bundle branch block ? H/O P.afib Normal TSH Hold Eliquis for now Resume Eliquis as able: Risks Vs Benefit to be assessed--in 2 to 4 weeks as outpatient Continue metoprolol: 25 mg QAM, 12.5 mg HS Appreciate cardiology input (2) Left orbit fracture: Plan: Closed fracture, nondepressed on films without evidence of visual involvement/globe rupture. Secondary to fall --Face CT:Nondepressed left orbital floor fracture. Fracture also involves the m edial and lateral cain of the left orbit. There are comminuted fractures to the anterior and posterior cain of the left maxillary antrum, with layering blood products within the sinus. There is likely fracture of the left frontal process of the maxilla. The right orbit is intact and orbital contents are normal as imaged. -- Appreciate oromaxillofacial surgery Input Supportive/conservative care (3) Closed left maxillary fracture: Plan: Closed traumatic fracture. Consulted oral maxillofacial surgery Empirically was started on Augmentin (4) Rhabdomyolysis: Plan: Traumatic rhabdomyolysis Elevated CK levels Mild troponin elevation likely secondary to rhabdo Hold statin Monitor renal function Received IV fluids CK levels normalized BRINA on CKD III -> resolved Cr elevation likely due to Rhabdo lisinopril discontinued Monitor renal function Avoid nephrotoxic agents as able Cr back to baseline (5) Right shoulder injury: Plan: Right shoulder x-ray:No acute bony abnormality is identified. Fall precautions Pain control (6) Acute kidney injury superimposed on chronic kidney disease: Plan: Management as above (7) Non-small cell carcinoma of lung: Plan: Follows with Dr. 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 Chart reviewed. Case discussed with the Kaci Hook PA-C and agree with the documentation above. Patient has been having intermittent fever despite being on empiric antibiotics, currently amox-clav. No leukocytosis. UA pending. Chest x-ray with no acute infectious source. Will check ultrasound lower extremity for clots. Subjective Patient is seen and examined in 350-2 No new complaints Waiting for rehab placement Denies any chest pain, dyspnea, abdominal pain, dizziness, nausea Review of Systems Review of Systems: At least ten systems reviewed and negative except as noted in the HPI. Physical Exam Physical Exam: General Appearance:Thin, frail, Elderly, no apparent distress Head: normocephalic, Atraumatic, hard of hearing Eyes: normal inspection, EOMI, L eye periorbital ecchymosis, TTP Neck: supple, Trachea midline Respiratory/Chest: Normal breath sounds, CTA, No accessory muscle use Cardiovascular: Irregularly irregular, No murmur Abdomen/GI:Soft, Non tender, Bowel sounds present Extremities/Musculoskeletal:normal inspection, no edema Neurologic/Psych:AAOX3, grossly no focal neurological deficits Skin: normal color, warm Results & Data Results & Data Vital Signs (Past 12 Hours) Vital Signs Temp Pulse Resp BP Pulse Ox O2 Del Method 08/13/23 17:31 37.3 C 08/13/23 16:14 38.4 C H 72 16 98/55 L 93 Room Air 08/13/23 06:55 36.7 C 87 18 103/66 93 Room Air
[2023-08-13] MEDS: METOPROLOL SUCC 50MG EXT REL TAB PO SCH (20:50)
[2023-08-13 20:54] LABS: Hematocrit (blood only) 31.1 % (42.0-52.0); Hemoglobin 10.3 g/dl (14.0-18.0); Mean Corpuscular Hemoglobin 27.9 pg (25.0-34.0); Mean Corpuscular Hgb Conc 33.1 g/dL (32.0-36.0); Mean Corpuscular Volume 84.3 fL (80.0-100.0); Mean Platelet Volume 9.4 fL (9.4-12.4); Platelet Count 232 K/uL (130-400); RDW Coefficient of Variation 18.6 % (11.5-14.5); RDW Standard Deviation 57.2 fL (36.4-46.3); Red Blood Count 3.69 M/uL (4.70-6.10); White Blood Count 4.98 K/ul (4.8-10.8)
[2023-08-13 21:07] LABS: BUN Creatinine Ratio 19.5 (10-20); Calcium 8.8 mg/dl (8.6-10.3); Creatinine Clr Calc Pharmacy 36.7 ml/min; Est GFR (Non-African American) 51.7 ml/min; Potassium 4.1 mmol/L (3.5-5.1)
[2023-08-13] MEDS ORDERED: SODIUM CHLORIDE 0.9% 500 ML IV SCH (21:15)
[2023-08-13 23:00] LABS: Appearance Urine Clear (Clear); Bilirubin Urine Negative (Negative); Blood Urine Negative (Negative); Color Urine Yellow; Glucose Urine UA Negative (Negative); Ketones Urine Negative (Negative); Leukocyte Esterase Urine Negative (Negative); Nitrite Urine Negative (Negative); Protein Urine Negative (Negative); Specific Gravity Urine 1.022 (1.000-1.030); Urobilinogen Urine Negative (Negative); pH Urine 5.5 (4.5-7.5)
[2023-08-14 06:51] LABS: Hematocrit (blood only) 31.1 % (42.0-52.0); Hemoglobin 10.6 g/dl (14.0-18.0); Mean Corpuscular Hemoglobin 28.2 pg (25.0-34.0); Mean Corpuscular Hgb Conc 34.1 g/dL (32.0-36.0); Mean Corpuscular Volume 82.7 fL (80.0-100.0); Mean Platelet Volume 10.1 fL (9.4-12.4); Platelet Count 251 K/uL (130-400); RDW Coefficient of Variation 18.8 % (11.5-14.5); RDW Standard Deviation 57.4 fL (36.4-46.3); Red Blood Count 3.76 M/uL (4.70-6.10); White Blood Count 5.92 K/ul (4.8-10.8)
[2023-08-14 07:12] LABS: BUN Creatinine Ratio 19.2 (10-20); Calcium 8.8 mg/dl (8.6-10.3); Creatinine Clr Calc Pharmacy 43.5 ml/min; Est GFR (African American) 73.4 ml/min; Est GFR (Non-African American) 63.4 ml/min
[2023-08-14] MEDS: HEPARIN SOD 5,000 UNIT/0.5 ML VIAL SQ SCH ×2 (08:42→20:42)
[2023-08-14] MEDS: UMECLIDINIUM/VILANTEROL 62.5/25MCG 7 PUFFS/INHALER INH SCH (08:51)
[2023-08-14] MEDS: METOPROLOL SUCC 25MG EXT REL TAB PO SCH ×2 (08:51→20:41)
[2023-08-14] MEDS: AMOXICILLIN/CLAVULANATE 875 MG TAB PO SCH ×2 (08:52→15:53)
--- NOTE | 2023-08-14 10:23 | Ultrasound Report ---
US venous doppler LE BI CLINICAL HISTORY: r/o DVT TECHNIQUE: Bilateral lower extremity real-time compression venous ultrasound with Color Doppler imagi ng. Utilizing real-time ultrasonic imaging multiple real time high-resolution ultrasonic images with compression and noncompression maneuvers of the deep venous system in addition to color doppler imagi ng were performed from the common femoral vein through the proximal calf veins. COMPARISON: None available at the time of this dictation. FINDINGS/IMPRESSION: Currently there is normal compressibility of the deep venous system from the common femoral vein thro ugh the proximal calf veins. Evaluation of the left popliteal region is slightly limited. ACT 112: Negative or not required by law. Electronically signed by: Rico Enriquez M.D. 08/14/2023 10:22 AM
--- NOTE | 2023-08-14 14:17 | Hospitalist Progress Note ---
Date of Service August 14, 2023 Assessment & Plan (1) Recurrent falls: Plan: Fall with left orbital fracture Dizziness possibly orthostatic hypotension --CT head:There is no hemorrhage, mass effect, or evidence of acute territorial ischemia by CT criteria. Fractures of the left orbit and left maxillary sinus are again noted. -- Neck CT:Degenerative changes are seen in the cervical spine without evidence of acute fracture. Please see CT cervical spine for findings of skull fractures. -- Fall precautions -- Brain MRI 08/12 per son's request due to increased confusion Senescent change as above with no acute intracranial abnormality identified. Lisinopril discontinued IV fluids as needed Patient and family agrees that patient will not be able to live by himself currently Awaiting SNF placement - referral to [facility] pending Fever with intermittent hypotension -Patient has had intermittent fever during this admission, most recently this evening 1615 of 38.4. This is in spite of being on amox-clav since admission. We will add doxycycline for atypical coverage given chest x-ray findings. Order infection work-up has been unremarkable with unremarkable WBC, UA, Pro-Miguel. Repeat blood culture pending. Ultrasound lower extremities negative for DVT. Paroxysmal atrial fibrillation Right bundle branch block Normal TSH Hold Eliquis for now Resume Eliquis as able: Risks Vs Benefit to be assessed--in 2 to 4 weeks as outpatient Continue metoprolol: 25 mg QAM, 12.5 mg HS Appreciate cardiology input (2) Left orbit fracture: Plan: Closed fracture, nondepressed on films without evidence of visual involvement/globe rupture. Secondary to fall --Face CT:Nondepressed left orbital floor fracture. Fracture also involves the medial and lateral cain of the left orbit. There are comminuted fractures to the anterior and posterior cain of the left maxillary antrum, with layering blood products within the sinus. There is likely fracture of the left frontal process of the maxilla. The right orbit is intact and orbital contents are normal as imaged. -- Appreciate oromaxillofacial surgery Input Supportive/conservative care (3) Closed left maxillary fracture: Plan: Closed traumatic fracture. Consulted oral maxillofacial surgery Empirically was started on Augmentin (4) Rhabdomyolysis: Plan: Traumatic rhabdomyolysis-resolved. BRINA on CKD III due to rhabdo-> resolved. Lisinopril discontinued Cr back to baseline (5) Right shoulder injury: Plan: Right shoulder x-ray:No acute bony abnormality is identified. Fall precautions Pain control (6) Acute kidney injury superimposed on chronic kidney disease: Plan: Resolved, creatinine back to baseline (7) Non-small cell carcinoma of lung: Plan: Follows with Dr. 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 Admission and Anticipated Discharge Date Admission Date: August 05, 2023 Subjective Patient was seen and examined at bedside. He feels okay and denies any issues. He states he does not like being told what to do. When I told him he would be going to the rehab for few weeks prior to going home, he was agreeable. No fever today. No chest pain or shortness of breath no nausea or vomiting. Review of Systems Review of Systems: All systems reviewed & are unremarkable except as noted in Subjective Physical Exam Physical Exam: General: Elderly male, lying comfortably in bed, not in distress, on room air HEENT: EOMI, LOPEZ, MMM Chest: Clear breath sounds bilaterally, no wheezes or crackles CVS: Regular rate and rhythm, normal heart sounds, no murmur Abdomen: Soft, non tender, not distended, normal bowel sounds Neuro: Awake, alert, oriented, conversing well, non focal Extremities: No cyanosis, clubbing or edema Results & Data Results & Data Vital Signs (Past 12 Hours) Vital Signs Temp Pulse Resp BP Pulse Ox O2 Del Method 08/14/23 08:40 95 H 94/53 L 08/14/23 06:58 37 C 98 H 16 95/55 L 96 Room Air Laboratory Results Short CBC 08/13/23 08/14/23 Range/Units 20:16 05:57 WBC 4.98 5.92 (4.8-10.8) K/ul Hgb 10.3 L 10.6 L (14.0-18.0) g/dl Hct 31.1 L 31.1 L (42.0-52.0) % Plt Count 232 251 (130-400) K/uL BMP 08/13/23 08/14/23 20:16 05:57 Sodium 136 138 Potassium 4.1 4.0 Chloride 107 107 Carbon Dioxide 22 25 BUN 24 H 20 Creatinine 1.23 1.04 Glucose 126 H 97 Calcium 8.8 8.8 Urine 08/13/23 Range/Units 20:20 Urine Color Yellow Urine Appearance Clear (Clear) Urine pH 5.5 (4.5-7.5) Ur Specific [place] 1.022 (1.000-1.030) Urine Protein Negative (Negative) Urine Glucose (UA) Negative (Negative) Medications Administered Current Inpatient Medications Acetaminophen (Acetaminophen 325 Mg Tab) 650 mg PO Q4H PRN PRN Reason: Pain or Fever Stop: 09/04/23 22:56 Last Admin: 08/13/23 16:46 Dose: 650 mg Albuterol (Albuterol Hfa 8 Gm Inhaler) 2 puffs INH Q4H PRN PRN Reason: Shortness Of Breath Or Wheezing Stop: 09/04/23 22:56 Amoxicillin/Clavulanate Potassium (Amoxicillin/Clavulanate 875 Mg Tab) 1 tab PO BIDM [facility]; Protocol Stop: 08/16/23 07:59 Last Admin: 08/14/23 08:52 Dose: Not Given Atorvastatin Calcium (Atorvastatin 40 Mg Tab) 40 mg PO DAILY [facility] Stop: 09/05/23 08:59 Heparin Sodium (Porcine) (Heparin Sod 5,000 Unit/0.5 Ml Vial) 5,000 units SQ Q12 [facility] Stop: 09/06/23 20:59 Last Admin: 08/14/23 08:42 Dose: 5,000 units Lisinopril (Lisinopril 2.5 Mg Tab) 2.5 mg PO DAILY [facility] Stop: 09/05/23 08:59 Metoprolol Succinate (Metoprolol Succ 25mg Ext Rel Tab) 25 mg PO DAILY [facility] Stop: 09/05/23 04:34 Last Admin: 08/14/23 08:51 Dose: Not Given Metoprolol Succinate (Metoprolol Succ 50mg Ext Rel Tab) 12.5 mg PO HS [facility] Stop: 09/06/23 20:59 Last Admin: 08/13/23 20:50 Dose: Not Given Polyethylene Glycol (Polyethylene (Miralax) 17 Gm Pack) 17 gm PO DAILY PRN PRN Reason: Constipation Stop: 09/04/23 22:56 Umeclidinium/Vilanterol (Umeclidinium/Vilanterol 62.5/25mcg 7 Puffs/Inhaler) 1 puffs INH DAILY [facility] Stop: 09/05/23 08:59 Last Admin: 08/14/23 08:51 Dose: 1 puffs
[2023-08-14] MEDS: DOXYCYCLINE HYCLATE 100 MG CAP PO SCH ×2 (15:53→20:41)
[2023-08-15] MEDS: AMOXICILLIN/CLAVULANATE 875 MG TAB PO SCH ×2 (09:26→17:51)
[2023-08-15] MEDS: METOPROLOL SUCC 25MG EXT REL TAB PO SCH ×2 (09:27→20:54)
[2023-08-15] MEDS: HEPARIN SOD 5,000 UNIT/0.5 ML VIAL SQ SCH ×3 (09:27→20:59)
[2023-08-15] MEDS: DOXYCYCLINE HYCLATE 100 MG CAP PO SCH ×2 (09:27→20:48)
[2023-08-15] MEDS: UMECLIDINIUM/VILANTEROL 62.5/25MCG 7 PUFFS/INHALER INH SCH (09:28)
--- NOTE | 2023-08-15 11:21 | Hospitalist Progress Note ---
Date of Service August 15, 2023 Assessment & Plan (1) Recurrent falls: Plan: Fall with left orbital fracture Dizziness possibly orthostatic hypotension --CT head:There is no hemorrhage, mass effect, or evidence of acute territorial ischemia by CT criteria. Fractures of the left orbit and left maxillary sinus are again noted. -- Neck CT:Degenerative changes are seen in the cervical spine without evidence of acute fracture. Please see CT cervical spine for findings of skull fractures. -- Fall precautions -- Brain MRI 08/12 per son's request due to increased confusion Senescent change as above with no acute intracranial abnormality identified. Lisinopril discontinued Family states that patient will not be able to live by himself currently Awaiting bed availability at SNF Fever with intermittent hypotension -Patient has had intermittent fever during this admission, most recently 2 days back at 38.4 this is in spite of being on amox-clav since admission. Doxycycline added yesterday for atypical coverage given chest x-ray findings. Order infection work-up has been unremarkable with unremarkable WBC, UA, Pro- Miguel. Multiple blood cultures have been negative, including the most recent one 2 days back. Ultrasound lower extremities negative for DVT. Paroxysmal atrial fibrillation Right bundle branch block Normal TSH Hold Eliquis for now Resume Eliquis as able: Risks Vs Benefit to be assessed--in 2 to 4 weeks as outpatient Continue metoprolol: 25 mg QAM, 12.5 mg HS Appreciate cardiology input (2) Left orbit fracture: Plan: Closed fracture, nondepressed on films without evidence of visual involvement/globe rupture. Secondary to fall --Face CT:Nondepressed left orbital floor fracture. Fracture also involves the medial and lateral cain of the left orbit. There are comminuted fractures to the anterior and posterior cain of the left maxillary antrum, with layering blood products within the sinus. There is likely fracture of the left frontal process of the maxilla. The right orbit is intact and orbital contents are normal as imaged. -- Appreciate oromaxillofacial surgery Input Supportive/conservative care (3) Closed left maxillary fracture: Plan: Closed traumatic fracture. Consulted oral maxillofacial surgery Empirically was started on Augmentin (4) Rhabdomyolysis: Plan: Traumatic rhabdomyolysis-resolved. BRINA on CKD III due to rhabdo-> resolved. Lisinopril discontinued Cr back to baseline (5) Right shoulder injury: Plan: Right shoulder x-ray:No acute bony abnormality is identified. Fall precautions Pain control (6) Acute kidney injury superimposed on chronic kidney disease: Plan: Resolved, creatinine back to baseline (7) Non-small cell carcinoma of lung: Plan: Follows with Dr. 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 Admission and Anticipated Discharge Date Admission Date: August 05, 2023 Subjective Patient was seen and examined at bedside. He feels fine. He denies any issues. He wants to go home. He is worried about his cat. No fever for 2 days now. No nausea, vomiting, chest pain, shortness of breath. Review of Systems Review of Systems: All systems reviewed & are unremarkable except as noted in Subjective Physical Exam Physical Exam: General: Elderly male, lying comfortably in bed, not in distress, on room air HEENT: EOMI, LOPEZ, MMM Chest: Clear breath sounds bilaterally, no wheezes or crackles CVS: Regular rate and rhythm, normal heart sounds, no murmur Abdomen: Soft, non tender, not distended, normal bowel sounds Neuro: Awake, alert, oriented, conversing well, non focal Extremities: No cyanosis, clubbing or edema Results & Data Results & Data Vital Signs (Past 12 Hours) Vital Signs Temp Pulse Resp BP Pulse Ox O2 Del Method 08/15/23 06:54 36.9 C 86 18 108/66 94 Room Air 08/15/23 00:25 36.7 C 100 H 18 120/67 93 Room Air Medications Administered Current Inpatient Medications Acetaminophen (Acetaminophen 325 Mg Tab) 650 mg PO Q4H PRN PRN Reason: Pain or Fever Stop: 09/04/23 22:56 Last Admin: 08/13/23 16:46 Dose: 650 mg Albuterol (Albuterol Hfa 8 Gm Inhaler) 2 puffs INH Q4H PRN PRN Reason: Shortness Of Breath Or Wheezing Stop: 09/04/23 22:56 Amoxicillin/Clavulanate Potassium (Amoxicillin/Clavulanate 875 Mg Tab) 1 tab PO BIDM [facility]; Protocol Stop: 08/16/23 07:59 Last Admin: 08/15/23 09:26 Dose: 1 tab Atorvastatin Calcium (Atorvastatin 40 Mg Tab) 40 mg PO DAILY [facility] Stop: 09/05/23 08:59 Doxycycline Hyclate (Doxycycline Hyclate 100 Mg Cap) 100 mg PO BID [facility] Stop: 08/21/23 14:14 Last Admin: 08/15/23 09:27 Dose: 100 mg Heparin Sodium (Porcine) (Heparin Sod 5,000 Unit/0.5 Ml Vial) 5,000 units SQ Q12 [facility] Stop: 09/06/23 20:59 Last Admin: 08/15/23 09:27 Dose: 5,000 units Lisinopril (Lisinopril 2.5 Mg Tab) 2.5 mg PO DAILY [facility] Stop: 09/05/23 08:59 Metoprolol Succinate (Metoprolol Succ 25mg Ext Rel Tab) 25 mg PO DAILY [facility] Stop: 09/05/23 04:34 Last Admin: 08/15/23 09:27 Dose: 25 mg Metoprolol Succinate (Metoprolol Succ 25mg Ext Rel Tab) 12.5 mg PO HS [facility] Stop: 09/13/23 20:59 Last Admin: 08/14/23 20:41 Dose: 12.5 mg Polyethylene Glycol (Polyethylene (Miralax) 17 Gm Pack) 17 gm PO DAILY PRN PRN Reason: Constipation Stop: 09/04/23 22:56 Umeclidinium/Vilanterol (Umeclidinium/Vilanterol 62.5/25mcg 7 Puffs/Inhaler) 1 puffs INH DAILY [facility] Stop: 09/05/23 08:59 Last Admin: 08/15/23 09:28 Dose: 1 puffs
[2023-08-16] MEDS ORDERED: PROMETHAZINE HCL 12.5 MG in SODIUM CHLORIDE 0.9% 50 ML IV STA (05:10)
[2023-08-16 08:08] LABS: Hematocrit (blood only) 31.1 % (42.0-52.0); Hemoglobin 10.4 g/dl (14.0-18.0); Mean Corpuscular Hemoglobin 27.7 pg (25.0-34.0); Mean Corpuscular Hgb Conc 33.4 g/dL (32.0-36.0); Mean Corpuscular Volume 82.9 fL (80.0-100.0); Mean Platelet Volume 9.2 fL (9.4-12.4); Platelet Count 265 K/uL (130-400); RDW Coefficient of Variation 18.6 % (11.5-14.5); RDW Standard Deviation 56.7 fL (36.4-46.3); Red Blood Count 3.75 M/uL (4.70-6.10)
[2023-08-16] MEDS: DOXYCYCLINE HYCLATE 100 MG CAP PO SCH ×2 (08:19→19:48)
[2023-08-16] MEDS: UMECLIDINIUM/VILANTEROL 62.5/25MCG 7 PUFFS/INHALER INH SCH (08:20)
[2023-08-16] MEDS: HEPARIN SOD 5,000 UNIT/0.5 ML VIAL SQ SCH ×2 (08:20→19:49)
[2023-08-16] MEDS: METOPROLOL SUCC 25MG EXT REL TAB PO SCH ×2 (08:20→19:48)
[2023-08-16 08:38] LABS: BUN Creatinine Ratio 19.3 (10-20); Calcium 9.2 mg/dl (8.6-10.3); Creatinine Clr Calc Pharmacy 41.5 ml/min; Est GFR (African American) 69.4 ml/min; Est GFR (Non-African American) 59.9 ml/min; Phosphorus 3.1 mg/dl (2.5-4.9); Potassium 4.2 mmol/L (3.5-5.1)
--- NOTE | 2023-08-16 09:47 | Hospitalist Progress Note ---
Date of Service August 16, 2023 Assessment & Plan (1) Recurrent falls: Plan: Fall with left orbital fracture Dizziness possibly orthostatic hypotension --CT head:There is no hemorrhage, mass effect, or evidence of acute territorial ischemia by CT criteria. Fractures of the left orbit and left maxillary sinus are again noted. -- Neck CT:Degenerative changes are seen in the cervical spine without evidence of acute fracture. Please see CT cervical spine for findings of skull fractures. -- Fall precautions -- Brain MRI 08/12 per son's request due to increased confusion Senescent change as above with no acute intracranial abnormality identified. Lisinopril discontinued Family states that patient will not be able to live by himself currently Awaiting bed availability at [facility]- currently stable for discharge Fever with intermittent hypotension -Patient has had intermittent fever during this admission, most recently 3 days ago at 38.4 in spite of being on amox-clav since admission. Doxycycline added for atypical coverage given chest x-ray findings. Infection work-up has been unremarkable otherwise with unremarkable WBC, UA, Pro-Miguel. Multiple blood cultures have been negative, including the most recent one 2 days ago. Paroxysmal atrial fibrillation Right bundle branch block Normal TSH Hold Eliquis for now Resume Eliquis as able: Risks Vs Benefit to be assessed--in 2 to 4 weeks as outpatient Continue metoprolol: 25 mg QAM, 12.5 mg HS Appreciate cardiology input (2) Left orbit fracture: Plan: Closed fracture, nondepressed on films without evidence of visual involvement/globe rupture. Secondary to fall --Face CT:Nondepressed left orbital floor fracture. Fracture also involves the medial and lateral cain of the left orbit. There are comminuted fractures to the anterior and posterior cain of the left maxillary antrum, with layering blood products within the sinus. There is likely fracture of the left frontal process of the maxilla. The right orbit is intact and orbital contents are normal as imaged. -- Appreciate oromaxillofacial surgery Input Supportive/conservative care (3) Closed left maxillary fracture: Plan: Closed traumatic fracture. Consulted oral maxillofacial surgery Empirically was started on Augmentin (4) Rhabdomyolysis: Plan: Traumatic rhabdomyolysis-resolved. BRINA on CKD III due to rhabdo-> resolved. Lisinopril discontinued Cr back to baseline (5) Right shoulder injury: Plan: Right shoulder x-ray:No acute bony abnormality is identified. Fall precautions Pain control (6) Acute kidney injury superimposed on chronic kidney disease: Plan: Resolved, creatinine back to baseline (7) Non-small cell carcinoma of lung: Plan: Follows with Dr. Olguin of Oncology Recently completed radiation therapy Needs follow-up with oncology upon discharge (8) Chronic anticoagulation: Plan: Was on Eliquis after a prior stroke, paroxysmal A-fib Previously on dual antiplatelet therapy Eliquis discontinued for now Currently on aspirin (9) Ischemic heart disease due to coronary artery obstruction: Plan: H/O Ischemic heart disease H/O Inferior wall myocardial infarction S/P PCI stent of totally occluded R CA(2002) Continue Aspirin, Metoprolol Resume statin as able DVT prophylaxis-subcu heparin Disposition- plan to discharge to SNF awaiting bed availability. Admission and Anticipated Discharge Date Admission Date: August 05, 2023 Subjective Pt was sleeping, stated that he felt fine when awakened. Denied other acute concerns. Review of Systems Review of Systems: All systems reviewed & are unremarkable except as noted in Subjective Physical Exam Physical Exam: General: Was sleeping. No acute distress Skin: No noted rashes or bruises Psych: Appropriate mood and affect Neuro: No gross deficits HEENT: NC/AT CV: RRR, Normal s1, s2. No murmurs appreciated Resp:no increased effort of breathing Abdomen:Soft Extremities: No edema in lower extremities bilaterally. Results & Data Results & Data Vital Signs (Past 12 Hours) Vital Signs Temp Pulse Resp BP Pulse Ox O2 Del Method 08/16/23 07:05 36.5 C 95 H 18 109/69 92 Room Air 08/15/23 22:22 Room Air
[2023-08-17 07:04] LABS: Basophils # (auto) 0.06 K/uL (0.00-0.20); Basophils % (auto) 1.2 %; Eosinophils # (auto) 0.71 K/uL (0.00-0.50); Eosinophils % (auto) 13.7 %; Hematocrit (blood only) 35.8 % (42.0-52.0); Hemoglobin 11.8 g/dl (14.0-18.0); Immature Granulocytes # (auto) 0.02 K/uL (0.01-0.20); Immature Granulocytes % (auto) 0.4 %; Lymphocytes # (auto) 0.47 K/uL (1.20-3.40); Lymphocytes % (auto) 9.1 %; Mean Corpuscular Hemoglobin 27.9 pg (25.0-34.0); Mean Corpuscular Volume 84.6 fL (80.0-100.0); Mean Platelet Volume 9.7 fL (9.4-12.4); Monocytes # (auto) 1.16 K/uL (0.11-0.59); Monocytes % (auto) 22.4 %; Neutrophils # (auto) 2.75 K/uL (1.40-6.50); Neutrophils % (auto) 53.2 %; Platelet Count 267 K/uL (130-400); RDW Coefficient of Variation 18.5 % (11.5-14.5); RDW Standard Deviation 57.1 fL (36.4-46.3); Red Blood Count 4.23 M/uL (4.70-6.10); White Blood Count 5.17 K/ul (4.8-10.8)
[2023-08-17 07:34] LABS: BUN Creatinine Ratio 21.4 (10-20); Calcium 9.8 mg/dl (8.6-10.3); Creatinine Clr Calc Pharmacy 38.6 ml/min; Est GFR (African American) 63.7 ml/min; Est GFR (Non-African American) 54.9 ml/min; Potassium 4.6 mmol/L (3.5-5.1)
[2023-08-17] MEDS: DOXYCYCLINE HYCLATE 100 MG CAP PO SCH (09:17)
[2023-08-17] MEDS: UMECLIDINIUM/VILANTEROL 62.5/25MCG 7 PUFFS/INHALER INH SCH (09:17)
[2023-08-17] MEDS: HEPARIN SOD 5,000 UNIT/0.5 ML VIAL SQ SCH (09:17)
[2023-08-17] MEDS: METOPROLOL SUCC 25MG EXT REL TAB PO SCH (09:17)
--- NOTE | 2023-08-17 12:16 | Discharge Summary ---
Discharge Summary Date of Service August 17, 2023 Notes For Next Care Provider Facial fracture and rhabdo 2/2 recurrent falls, on anticoagulation. Medication Changes From Visit Doxycycline 100mg PO BID for pneumonitis and intermittent fever. Lisinopril discontinued. Toprol 12.5mg HS added. Continue holding Eliquis for 2-4 weeks and re-evaluate, per cardiology. Admission HPI Per Admitting Provider 88 yo M on ASA and apixaban presents after son found him in bed wtih a bruised eye that was new suggestive of a fall overnight. He has had multiple falls in recent weeks. He reports significant dizziness as a cause of his falls as well as tripping over objects such as his shoes which he did yesterday. I cannot get an understanding of what happened overnight as he is a poor historian and keeps going back to his longstanding dizziness. He states that his head gets warm and then he feels presyncopal so he sits down. He denies any current pain or bleeding. He is not able to flex his right arm forward. He denies any chest pain, sob or other symptoms at this time. He reports self administering medications at home and is able to go through most of them with me tonight accurately. He reports taking apixaban only once daily and last dose was last evening. Aspirin last taken yesterday evening, also. He denies any pain in his eye or face. He does have some chronic visual issues/retinal disease that is being treated by his health researcher which he and children report. He reports no changes in his vision acutely today. I did step out and review with the ER physician that there was an error on the CT c pine reading about skull fractures. There are none. I did review with the patient and family that there are fractures in the left orbit and the left upper jaw area. There is no c-spine fracture, no evidence of solid organ injury on abd/pel CT and no pelvic fracture on xray. Admission Exam Per Admitting Provider CONSTITUTIONAL: elderly, thin, vitals as above, generally well-appearing, NAD EYES: EOMI bilaterally, PERRL, normal conjunctivae, no scleral icterus ENT: external ear and nose normal, oropharynx clear, no TM abnormality NECK: trachea midline RESPIRATORY: clear to auscultation bilaterally, no crackles, rales or wheezes, normal respiratory effort CARDIOVASCULAR: regular rate and rhythm, S1 and 2 heard without murmurs, gallops or rubs, no JVD, no peripheral edema CHEST: inspection of chest was normal GASTROINTESTINAL: soft, nontender, ND, no guarding MUSCULOSKELETAL: strength 5/5 throughout except unable to extend his right arm out in front of him 2/2 pain. Right arm biceps 5/5 and triceps 5/5. Cutlery Grinder strength intact and equal bilaterally, head is normocephalic, periorbital ecchymosis is noted on the left. SKIN: warm and dry, no rashes or ecchymosis in other areas. NEUROLOGIC: patellar DTRs 2+ bilat. PERRL, EOMI, no facial palsy, no dysarthria. Touch, pain and proprioception normal. CN 2-12 grossly intact, no sensory deficit, normal cognition, normal speech, no tremor PSYCHIATRIC: alert cooperative and oriented to person, place and time. Euthymic mood, makes good eye contact, language grossly intact, recent and remote memory grossly intact. Principal Dx & Hospital Course #1 = Principal Diagnosis (1) Recurrent falls: (2) Left orbit fracture: (3) Closed left maxillary fracture: (4) Rhabdomyolysis: (5) Right shoulder injury: (6) Acute kidney injury superimposed on chronic kidney disease: (7) Non-small cell carcinoma of lung: (8) Chronic anticoagulation: (9) Ischemic heart disease due to coronary artery obstruction: Plan This is an 88 yo M on ASA and apixaban who presented after son found him in bed with a bruised eye that was new suggestive of a fall overnight and was found to have a facial fracture, BRINA, rhabdomyolysis. Fall with left orbital fracture Dizziness possibly orthostatic hypotension --CT head:There is no hemorrhage, mass effect, or evidence of acute territorial ischemia by CT criteria. Fractures of the left orbit and left maxillary sinus are again noted. -- Neck CT:Degenerative changes are seen in the cervical spine without evidence of acute fracture. Please see CT cervical spine for findings of skull fractures. -- Fall precautions -- Brain MRI 08/12 per son's request due to increased confusion shows senescent change; no acute intracranial abnormality identified. Lisinopril discontinued Family states that patient will not be able to live by himself currently Discharging to [facility] Fever with intermittent hypotension Patient has had intermittent fever during this admission, most recently T: 38.4 on 10/13 in spite of being on amox-clav since admission Completed 10 d course of Augmentin empirically for facial fracture, intermittent fever Infection work-up has been unremarkable otherwise with unremarkable WBC, UA, Pro-Miguel, BLE venous dopplers Multiple blood cultures have been negative, including the most recent one 2 days ago Doxycycline added for atypical coverage given chest x-ray findings and concern for pneumonitis - complete 10 d course on discharge Paroxysmal atrial fibrillation Right bundle branch block Normal TSH Holding Eliquis for now given traumatic fall Per cardiology on 08/07- Eliquis remains contraindicated though may reconsider in 2 to 4-weeks, risks vs Benefit to be re-assessed at that time Continue metoprolol: 25 mg QAM, 12.5 mg HS added Closed L orbital floor fracture, nondepressed on films without evidence of visual involvement/globe rupture 12/03 fall as above Face CT: Nondepressed left orbital floor fracture. Fracture also involves the medial and lateral cain of the left orbit. Evaluated by oromaxillofacial surgery - supportive/conservative care Completed empiric Augmentin course as above Traumatic rhabdomyolysis-resolved BRINA on CKD III due to rhabdo-> resolved. Lisinopril discontinued Cr back to baseline Right shoulder injury Right shoulder x-ray:No acute bony abnormality is identified Fall precautions Non-small cell carcioma of lung Follows with Dr. Olguin of Oncology Recently completed radiation therapy Needs follow-up with oncology upon discharge - scheduled for 09/[address] Olguin Discharge Exam General Appearance:Thin, frail, Elderly, no apparent distress Head: normocephalic, Atraumatic, hard of hearing Eyes: normal inspection, EOMI, L eye periorbital ecchymosis, TTP Neck: supple, Trachea midline Respiratory/Chest: Normal breath sounds, CTA, No accessory muscle use Cardiovascular: Irregularly irregular, No murmur Abdomen/GI:Soft, Non tender, Bowel sounds present Extremities/Musculoskeletal:normal inspection, no edema Neurologic/Psych:AAOX3, grossly no focal neurological deficits Skin: normal color, warm Updated Medication List Medication Instructions Recorded Confirmed Type cinnamon bark 500 mg capsule 500 mg PO MOWEFR 12/19/20 08/05/23 History (Cinnamon) nitroglycerin 0.4 mg sublingual 0.4 mg sublingual UD PRN Chest Pain 12/19/20 08/05/23 History tablet (Nitrostat) aspirin 81 mg tablet,delayed 81 mg PO DAILY #21 tabs 12/23/20 08/05/23 Rx release acetaminophen 325 mg capsule 650 mg PO QID PRN Fever Or Pain 05/26/23 08/05/23 History albuterol sulfate 90 mcg/actuation 2 puff inhalation Q4H PRN 05/26/23 08/05/23 History aerosol inhaler (Ventolin HFA) Shortness Of Breath Or Wheezing atorvastatin 40 mg tablet 40 mg PO DAILY 05/26/23 08/05/23 History ergocalciferol (vitamin D2) 50 mcg 50 mcg PO DAILY 05/26/23 08/05/23 History (2,000 unit) tablet ipratropium bromide 42 mcg (0.06 2 spray intranasal QID PRN 05/26/23 08/05/23 History %) nasal spray Shortness Of Breath Or Wheezing eigcryoxyicr-vohuvcdd-yqbbde tablet 1 tab PO DAILY 05/26/23 08/05/23 History umeclidinium 62.5 mcg-vilanterol 1 inh inhalation DAILY 05/26/23 08/05/23 History 25 mcg/actuation powdr for inhalation apixaban 2.5 mg tablet (Eliquis) 2.5 mg PO HS 08/05/23 08/05/23 History metoprolol succinate 25 mg 25 mg PO DAILY 08/05/23 08/05/23 History tablet,extended release 24 hr Lactobacillus acidophilus 10 100 mmu cells PO DAILY #14 caps 08/17/23 Rx billion cell capsule (Probiotic) doxycycline hyclate 100 mg capsule 100 mg PO BID #13 caps 08/17/23 Rx metoprolol succinate 25 mg 12.5 mg PO HS #30 tabs 08/17/23 Rx tablet,extended release 24 hr Hospital Stay Data Consultations 08/05/23 17:53 ED Decision to Admit Stat 08/06/23 09:24 Consult Oromaxillofacial Surgery Routine 08/06/23 09:29 Consult Cardiology Routine Diagnostic Imagining Performed 08/05/23 14:21 CT abd pelvis IV con only Stat CT cervical spine wo con Stat CT facial bones wo con Stat CT head/brain wo con Stat 08/06/23 07:00 CT head/brain wo con Routine 08/12/23 11:45 MRI Brain [MR brain wo/w con] Urgent 08/13/23 17:05 US venous doppler LE BI Routine Pending Results Patient Have Any Pending Studies at Discharge: No Discharge Instructions Given to Patient (Per Discharging Provider) MEDICATION CHANGES: Doxycycline 100mg PO BID x 7 days to complete course for pneumonitis and intermittent fever. Lisinopril discontinued. Toprol 12.5mg HS added. Continue holding Eliquis for 2-4 weeks and re-evaluate, per cardiology. SUMMARY OF TEST RESULTS: You were admitted to hospital secondary to recurrent falls. CT face from 08/05 shows nondepressed left orbital floor fracture. Fracture also involves the medial and lateral cain of the left orbit. Evaluated by oromaxillofacial surgery - continue supportive/conservative care, completed empiric course of Augmentin for closed traumatic facial fracture. Orthostatic hypotension thought to be contributing and lisinopril has been discontinued. Brain MRI ordered 08/12 per family request for increased confusion - Senescent change noted, no acute intracranial abnormality identified PENDING TEST RESULTS: None RECOMMENDATIONS FOR FOLLOW-UP: Follow up with PCP as scheduled. Complete antibiotic in its entirety. Per cardiology on 08/07 - Eliquis remains contraindicated though may reconsider in 2 to 4-weeks Follow up with Dr. Olguin of oncology for lung cancer - appointment scheduled for 09/15/23 Fall precautions. OTHER INSTRUCTIONS: Seek medical attention if you have: * temperature above 101 * chest pain or trouble breathing * abdominal pain, nausea, vomiting * diarrhea, dark stools or bloody stools * any unanswered questions or concerns Call 911 if symptoms are severe. Please take good care of yourself. Call if you have any questions or problems. You can reach a [facility] hospitalist on duty at [facility] 24 hours a day by calling [phone]. Total Time Total Time Spent Total Time Spent (In Minutes): 65
== END 2023-08-17 12:50 | DRG 85 ==
LOC: ED 14:10 → SUATTDRO 19:41 → EDINP 19:41 → 1E 22:57 → 2S 08-07 00:26 → 3W 08-11 05:39